=== PATIENT | female | born 1930 | race Caucasian/White ===

== ENCOUNTER → 2016-08-24 20:58 | Emergency (ER) | payer MEDICARE ==
[2016-08-24 21:44] LABS: Hematocrit 36 % (35-47); Hemoglobin 11.8 g/dl (12.0-16.0); Mean Corpuscular HGB Conc 33 g/dl (31-36); Mean Corpuscular Hemoglobin 33 pg (27-31); Mean Corpuscular Volume 99 fL (80-97); Mean Platelet Volume 8 um3 (7.4-10.4); Red Blood Count 3.62 10^6/ul (4.0-5.4); Red Cell Distribution Width 14 % (10.5-15); White Blood Count 8.7 10^3/ul (3.5-10.8)
--- NOTE | 2016-08-24 21:54 | RAD ---
Indication: Transient slurred speech and LEFT-sided facial droop. Symptoms resolved. Comparison: No relevant prior exams available on the [facility] [place] PACS for comparison. Technique: Noncontrast CT vertex of skull through foramen magnum. Report: Moderately severe prominence of the cerebral sulci and cerebellar fissures. Proportional ventricular enlargement. Patent basal cisterns. Small chronic lacunar infarct at the LEFT inferior cerebellar hemisphere. Negative for mansfield matter white matter obscuration, intra or extra-axial hemorrhage, or mass effect. Calcification at the bilateral basal ganglia. No suspicious intra or extra-axial lesions evident. Unremarkable partially visualized orbital contents. Atherosclerotic calcification at the intracranial internal carotid arteries. Negative for hyperdense MCA sign. No suspicious calvarial or skull base lesion evident. Clear visualized paranasal sinuses and mastoid air spaces. IMPRESSION: 1. Moderately severe involutional change. Small chronic lacunar infarct at the LEFT inferior cerebellar hemisphere. 2. No CT evidence for intracranial hemorrhage or CT stigmata of ischemic stroke.
--- NOTE | 2016-08-24 21:57 | RAD ---
Indication: Weakness. Transient LEFT side facial droop and slurring of words. Comparison: No relevant prior exams available on the [facility] PACS for comparison. Technique: Sitting AP and lateral chest views. Report: Mild prominence of the interstitial markings and upper lung zone rarefaction. No pulmonary infiltrate, focal pulmonary lesion, pleural effusion, pneumothorax. Upper normal heart size. Unremarkable central pulmonary vasculature. IMPRESSION: No acute cardiopulmonary process evident.
[2016-08-24 21:58] LABS: Albumin 4.4 g/dL (3.2-5.2); BUN/Creatinine Ratio 38.5 (8-20); Calcium 9.9 mg/dL (8.6-10.3); EGFR African American 44.6 (>60); EGFR Non-African American 34.7 (>60); Globulin 3.7 g/dL (2-4); Magnesium 2.1 mg/dL (1.9-2.7); Potassium 4.4 mmol/L (3.5-5.0); Total Bilirubin 0.3 mg/dL (0.2-1.0); Total Protein 8.1 g/dL (6.4-8.9)
[2016-08-24 22:09] VITALS: BP 138/37
[2016-08-24 22:57] LABS: Troponin I 0.05 ng/mL (<0.04)
--- NOTE | 2016-08-25 00:42 | ED ---
Johnny Posada Rebecca, scribed for Hammad Mortensen MD on 08/24/16 at 2122 . Neurological HPI - HPI Summary HPI Summary: Pt is an 85 y/o F who presents to ED s/p 2 episodes of slurred speech, unsteady gait and "speaking out of one side." Episodes occurred at 1745 and 1945 with the first lasting either 1 minute or 5 minutes (family was unsure) and the second lasting 2 minutes. All sx are resolved besides unsteady gait with family reports was improved by PO intake of chocolate. Speech impairments improved by spontaneous resolution. Denies fever. PMHx DM - blood glucose was taken by family at 1830 and it was 188. Is on blood thinners, per family. Dr. Greenfield is PCP. - History of Current Complaint Chief Complaint: EDWeakness Stated Complaint: WEAKNESS LT SIDE/SLURRING WORDS Time Seen by Provider: 08/24/16 21:16 Hx Obtained From: Patient, Family/Bolt Sorter Onset/Duration: Sudden Onset, Resolved Timing: Intermittent Episodes Lasting: - Minutes Current Severity: None Pain Intensity: 0 Pain Scale Used: 0-10 Numeric Frequency: Episodes x___ - 2 episodes, Episodes Lasting ____ (in Mins/Days/Weeks /Years) - 1 minute or 5 minutes (unsure); 2 minutes Aggravating: Nothing Alleviating: Glucose - Chocolate, Spontanious Resolution Associated Signs and Symptoms: Positive: Unsteady Gait - improved, Impaired Speech - Slurred speech and "speaking out of one side," resolved PMH/Surg Hx/FS Hx/Imm Hx Endocrine/Hematology History: Reports: Hx Diabetes Cardiovascular History: Reports: Hx Hypertension Respiratory History: Reports: Hx Asthma History: Reports: Hx Renal Disease - Stage III Infectious Disease History: Denies: Traveled Outside the [place] in Last 30 Days - Family History Known Family History: Positive: Cardiac Disease, Respiratory Disease - asthma, Other - CA - Social History Alcohol Use: None Substance Use Type: Reports: None Smoking Status (MU): Former Smoker Amount Used/How Often: QUIT 50 YEARS AGO Review of Systems Negative: Fever Neurological: Other - Slurred speech and "speaking out of one side" - resolved; Unsteady gait - improved All Other Systems Reviewed And Are Negative: Yes Physical Exam Triage Information Reviewed: Yes Vital Signs On Initial Exam: Initial Vitals Temp Pulse Resp BP Pulse Ox 97.2 F 94 18 164/51 99 08/24/16 21:00 08/24/16 21:00 08/24/16 21:00 08/24/16 21:00 08/24/16 21:00 Vital Signs Reviewed: Yes Appearance: Positive: Well-Appearing, No Pain Distress Skin: Positive: Warm Head/Face: Positive: Normal Head/Face Inspection Eyes: Positive: EOMI, DANYA ENT: Positive: Hearing grossly normal Neck: Positive: Supple Respiratory/Lung Sounds: Positive: Clear to Auscultation, Breath Sounds Present Cardiovascular: Positive: RRR Abdomen Description: Positive: Nontender, Soft Bowel Sounds: Positive: Present Musculoskeletal: Positive: Strength/ROM Intact Neurological: Positive: Sensory/Motor Intact, Alert, Oriented to Person Place, Time, Normal Gait Psychiatric: Positive: Affect/Mood Appropriate Diagnostics - Vital Signs Vital Signs Temp Pulse Resp BP Pulse Ox 08/24/16 21:00 97.2 F 94 18 164/51 99 - Laboratory Lab Results: Lab Results 08/24/16 08/24/16 08/24/16 Range/Units 21:25 21:25 21:25 WBC 8.7 (3.5-10.8) 10^3/ul RBC 3.62 L (4.0-5.4) 10^6/ul Hgb 11.8 L (12.0-16.0) g/dl Hct 36 (35-47) % MCV 99 H (80-97) fL MCH 33 H (27-31) pg MCHC 33 (31-36) g/dl RDW 14 (10.5-15) % Plt Count 249 (150-450) 10^3/ul MPV 8 (7.4-10.4) um3 Neut % (Auto) 58.8 (38-83) % Lymph % (Auto) 28.5 (25-47) % Stanly % (Auto) 6.8 (1-9) % Eos % (Auto) 5.3 (0-6) % Baso % (Auto) 0.6 (0-2) % Absolute Neuts (auto) 5.1 (1.5-7.7) 10^3/ul Absolute Lymphs (auto) 2.5 (1.0-4.8) 10^3/ul Absolute Monos (auto) 0.6 (0-0.8) 10^3/ul Absolute Eos (auto) 0.5 (0-0.6) 10^3/ul Absolute Basos (auto) 0.1 (0-0.2) 10^3/ul Absolute Nucleated RBC 0.01 10^3/ul Nucleated RBC % 0.1 Sodium 135 (133-145) mmol/L Potassium 4.4 (3.5-5.0) mmol/L Chloride 104 (101-111) mmol/L Carbon Dioxide 24 (22-32) mmol/L Anion Gap 7 (2-11) mmol/L BUN 55 H (6-24) mg/dL Creatinine 1.43 H (0.51-0.95) mg/dL Est GFR ( Amer) 44.6 (>60) Est GFR (Non-Af Amer) 34.7 (>60) BUN/Creatinine Ratio 38.5 H (8-20) Glucose 167 H (70-100) mg/dL Lactic Acid 1.2 (0.5-2.0) mmol/L Calcium 9.9 (8.6-10.3) mg/dL Magnesium 2.1 (1.9-2.7) mg/dL Total Bilirubin 0.30 (0.2-1.0) mg/dL AST 20 (13-39) U/L ALT 13 (7-52) U/L Alkaline Phosphatase 72 (34-104) U/L Troponin I 0.05 H* (<0.04) ng/mL Total Protein 8.1 (6.4-8.9) g/dL Albumin 4.4 (3.2-5.2) g/dL Globulin 3.7 (2-4) g/dL Albumin/Globulin Ratio 1.2 (1-3) Result Diagrams: 08/24/16 21:25 08/24/16 21:25 Lab Statement: Any lab studies that have been ordered have been reviewed, and results considered in the medical decision making process. - Radiology CXR Xray Interpretation: No Acute Changes - No acute cariopulmonary process evident. Radiology Interpretation Completed By: Radiologist - CT Brain CT CT Interpretation Completed By: Radiologist - 1. Moderately severe involutional change. Small chronic lacunar infarct at the LEFT inferior cerebellar hemisphere. 2. No CT evidence for intracranial hemorrhage or CT stigmata of ischemic stroke. - EKG 2127 Cardiac Rate: NL - 86 bpm EKG Rhythm: Sinus Rhythm EKG Interpretation: RBBB and LPFB, no STEMI NIH Scale - NIH Scale Level of Consciousness: Alert/Keenly Responsive Ask Patient the Month and His/Her Age: Both Correct Ask Pt to Open/Close Eyes and Cloth Measurer/Release Non-Paretic Hand: Both Correctly Best Gaze (Only Horizontal Eye Movement): Normal Visual Field Testing: No Visual Loss Facial Paresis-Pt to Smile & Close Eyes or Grimace Symmetry: Normal/Symmetrical Motor Function - Right Arm: No Drift-Holds 10 Seconds Motor Function - Left Arm: No Drift-Holds 10 Seconds Motor Function - Right Leg: No Drift-Holds 10 Seconds Motor Function - Left Leg: No Drift-Holds 10 Seconds Limb Ataxia-Must be out of Proportion to Weakness Present: Absent Sensory (Use Pinprick to Test Arms/Legs/Trunk/Face): Normal Best Language (Describe Picture, Name Items): No Aphasia Dysarthria (Read Several Words): Normal Extinction and Inattention: No Abnormality Total Score: 0 Re-Evaluation - Re-Evaluation First Eval Re-Evaluation Time: 22:24 Change: Improved Comment: Pt is doing well, discussed results and D/C plan with pt and family. Second Eval Comment: After d/c tropomnin 0.05 Called pt's daughter stated pt will f/u with dr greenfield, stated has elevated troponins due to renal disease Course/Dx - Course Assessment/Plan: Pt is an 85 y/o F who presents to ED s/p 2 episodes of slurred speech, unsteady gait and "speaking out of one side." Episodes occurred at 1745 and 1945 with the first lasting either 1 minute or 5 minutes (family was unsure ) and the second lasting 2 minutes. All sx are resolved besides unsteady gait with family reports was improved by PO intake of chocolate. Speech impairments improved by spontaneous resolution. Denies fever. PMHx DM - blood glucose was taken by family at 1830 and it was 188. Is on blood thinners, per family. Brain CT reveals "1. Moderately severe involutional change. Small chronic lacunar infarct at the LEFT. inferior cerebellar hemisphere. 2. No CT evidence for intracranial hemorrhage or CT stigmata of ischemic stroke." CXR reveals no acute findings. EKG reveals sinus rhythm with RBBB and LPFB w/ no STEMI. Pt will be D/C to home with Dx of TIA with a follow up with neurology. She and family agree and understand. - Diagnoses Provider Diagnoses: TIA (transient ischemic attack) Discharge - Discharge Plan Condition: Stable Disposition: HOME Patient Education Materials: Transient Ischemic Attack (ED) Referrals: Hammad Soria MD [Medical Doctor] - 3 Days The documentation as recorded by the Johnny sanchez Rebecca accurately reflects the service I personally performed and the decisions made by me, Hammad Mortensen MD.
== END | disposition home or self-care (01) ==
LOC: ED 20:58
DX: G45.9 Transient cerebral ischemic attack, unspecified (principal); Z86.79 Personal history of other diseases of the circulatory system; Z87.891 Personal history of nicotine dependence
CPT/HCPCS: 36415; 70450; 71020; 80053; 83605; 83735; 84484; 85025; 93005; 99282

== ENCOUNTER 2017-03-21 13:12 | Observation (INO) | payer BC, MEDICARE ==
--- OUTSIDE RECORDS SUMMARY | 2017-03-21 13:46 | XMS REPORT ---
:1930 External Reference #:[id number] [facility] [address] [address] Phone [phone] Care Team Providers Name Role Phone Tc Carrera MD Primary Care Physician Unavailable Payers Type Date Identification Numbers Payment Provider Subscriber Health Maintenance Policy Number: Medicare Blue Ppo Ivana Miriam [employer] [facility] [id number] Group Number: [id number] [address] [address] PayID: [id number] DANNA Mishra [id number] Advance Directives Type Date Description Status Comment Other Directive 04/28/2016 Living Will Current and Verified Problems Date Description Provider Status Onset: 03/04/2016 Type 2 diabetes mellitus Hai Wells M.D.,FACP Onset: 03/04/2016 Asthma Hai Wells M.D.,FACP Onset: 03/04/2016 Diabetic peripheral neuropathy Hai Wells M.D.,FACP Onset: 03/04/2016 Vitamin B12 deficiency (non anemic) Hai Wells M.D.,FACP Onset: 03/04/2016 Memory impairment Hai Wells M.D.,FACP Onset: 03/30/2016 Uric acid urolithiasis Hai Wells M.D.,FACP Onset: 08/26/2016 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 on Rosanna.JASMYN [employer] electrocardiogram Onset: 09/07/2016 Carotid artery stenosis Hai Wells M.D., FACP Note: LT 50-69% Onset: 09/09/2016 Transient cerebral ischemia Yudith Cruz MD Active Onset: 09/09/2016 Unspecified dementia 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 Cruz MD Active behavioral disturbance Onset: 02/15/2017 Chronic kidney disease stage 3 Hai Wells M.D., FACP Onset: 02/24/2017 Abnormal gait Yudith Cruz MD Active Onset: 03/04/2016 Chronic kidney disease Wilver Wells M.D., FACP Inactive: 03/04/2016 Onset: 03/04/2016 Chronic kidney disease stage Tc Carrera M.D.,JASMYN Inactive 3 Inactive: 03/30/2016 Onset: 03/04/2016 Primary gout Tc Carrera M.D., FACP Inactive Inactive: 03/30/2016 Onset: 03/30/2016 Chronic kidney disease stage Tc Carrera M.D.,АНДРЕЙP Inactive 2 Inactive: 02/15/2017 Family History Date Family Member(s) Problem(s) Comments General Cancer General Seizure Disorder General Hypertension General Heart Disease Father due to Combat () - WW2 Fatality Mother due to Combat () - WW2 Fatality Children 3 : (age 66 First Son due to Lung Cancer Years) First Daughter Asthma First Daughter mild anoxic brain injury Siblings 11 First Brother due to Combat () Fatality : (age 40 First Sister due to Asthma Years) : (age 33 Second Sister due to Cancer bone Years) Social History Type Date Description Comments Marital Status Lives With Daughter Occupation Retired Cigarette Use Former Cigarette Smoker ETOH Use 03/30/2016 Never used alcohol Smoking Patient is a former smoker 1/2 ppd X 13 years. Quit in 1950's Recreational Drug Use Denies Drug Use Daily Caffeine Decaf Tea 5-6 cups/day General Hx Text Allergies, Adverse Reactions, Alerts Date Description Reaction Status Severity Comments 03/04/2016 NKDA active Medications Medication Date Status Form Strength Qnty SIG Indications Ordering Provider Blood Glucose 11/30 Active Kit W/Device 1unit check blood Monitoring s sugar 4 times Milvia Carrera System daily and prn M.Milvia,FACJennifer Blood Glucose 11/30 Active Strips 150un check blood Test its sugar 4 times Milvia Carrera, daily and prn M.DYenni,FACJennifer Lancets 11/30 Active Misc 28G 150un check blood its sugar 4 times Milvia Carrera, daily and prn M.DYenni,FACJennifer Valsartan 09/12 Active Tablets 40mg 30tab 1/2 by mouth s every day Milvia Carrera M.D.,JASMYN Aspirin Ec 08/26 Active Tablets 81mg 90tab 1-[address] brenton Carrera M.D.,АНДРЕЙP Atorvastatin 03/30 Active Tablets 40mg 90tab take 1/2 s tablet at Milvia Carrera, bedtime (fill Jaclyn,FACJennifer when patient requests) BD Insulin 03/11 Active Misc 31G X 400un use 4 syringes Syringe /07/12" 1 its daily and as Milvia Carrera, Ultrafine/U-100 ML needed Jaclyn,JASMYN /1ML/31G X 07/12" Allopurinol Active Tablets 100mg 90tab 1 by mouth s every day Milvia Carrera M.D.,JASMYN Levemir Active Solution 100Unit/M 30ml 20-24 units at Buddy /0000 L bedtime Welsh, [employer] Furosemide Active Tablets 20mg 90tab 1 by mouth / s every morning Milvia Carrera M.D.,АНДРЕЙP Centrum Silver Active Tablets 1 by mouth Unknown /0000 every day Fiber 00 Active Capsules 3 at noon and Unknown /0000 3 in evening Humalog Active Solution 100Unit/M 30ml 6-8 units per Buddy /0000 L sliding scale Welsh, three times a [employer] day with each meal and as needed Valacyclovir 08/10 Hx Tablets 1gm 21tab by mouth every s 8 hours for 1 D. Debi, - week Jaclyn,FACP 08/17 Atorvastatin 03/11 Hx Tablets 80mg 90tab 1 by mouth Buddy s every day Welsh, - [employer] 03/30 Cyanocobalamin 03/04 Hx Solution 1000mcg/M 6ml 1 milliliters L intramuscular Milvia Carrera, - [id number] Jaclyn,FACP 03/30 Valsartan Hx Tablets 80mg 90tab 1 by mouth in s at night Milvia Carrera - Jaclyn,[facility] 09/12 Immunizations CPT Code Status Date Vaccine Reaction Lot # [id number] Given 02/15/2017 Pneumococcal Conjugate Vaccine 13 [id number] Valent For Intramuscular Use 22874 Given 11/09/2016 Influenza Virus Vaccine, Quadrivalent, no reaction 572kt Split, Preservative Free Vital Signs Date Vital Result Comment 02/24/2017 Weight 148.50 lb Heart Rate 72 /min BP Systolic 130 mmHg BP Diastolic 62 mmHg 02/15/2017 Weight 149.00 lb Heart Rate 74 /min BP Systolic Sitting 136 mmHg BP Diastolic Sitting 84 mmHg Body Temperature 96.1 F O2 % BldC Oximetry 99 % 11/09/2016 Weight 145.50 lb Heart Rate 60 /min BP Systolic Sitting 120 mmHg BP Diastolic Sitting 56 mmHg Body Temperature 97.4 F O2 % BldC Oximetry 96 % 09/12/2016 Height 60.4 inches 5'0.40" Weight 145.00 lb Heart Rate 72 /min BP Systolic Sitting 112 mmHg BP Diastolic Sitting 62 mmHg Body Temperature 98.1 F O2 % BldC Oximetry 95 % BMI (Body Mass Index) 27.9 kg/m2 09/09/2016 Height 60.4 inches 5'0.40" Weight 144.00 lb Heart Rate 72 /min BP Systolic Sitting 100 mmHg 120/42 rt arm BP Diastolic Sitting 40 mmHg 120/42 rt arm Respiratory Rate 16 /min BMI (Body Mass Index) 27.7 kg/m2 08/26/2016 Weight 145.00 lb Heart Rate 90 /min BP Systolic Sitting 136 mmHg BP Diastolic Sitting 50 mmHg Body Temperature 98.0 F O2 % BldC Oximetry 98 % 08/10/2016 Height 60.4 inches 5'0.40" Weight 144.00 lb Heart Rate 75 /min BP Systolic 138 mmHg BP Diastolic 50 mmHg Body Temperature 98.2 F O2 % BldC Oximetry 99 % BMI (Body Mass Index) 27.7 kg/m2 03/30/2016 Weight 142.50 lb Heart Rate 66 /min BP Systolic Sitting 144 mmHg BP Diastolic Sitting 60 mmHg Body Temperature 97.2 F O2 % BldC Oximetry 94 % 03/04/2016 Height 60 inches 5'0" Weight 132.25 lb Heart Rate 96 /min BP Systolic Sitting 138 mmHg BP Diastolic Sitting 58 mmHg Body Temperature 98.1 F O2 % BldC Oximetry 87 % BMI (Body Mass Index) 25.8 kg/m2 Results Test Date Test Result H/L Range Note Laboratory test finding 02/15/2017 Hemoglobin A1c 7.5 High 5-7 Laboratory test finding 11/09/2016 Hemoglobin A1c 7.8 High 5-7 Laboratory test finding 08/31/2016 Troponin-I (TnI) 0.05 ng/mL High < 0.04 CKMB 08/31/2016 CKMB ng/mL 3.0 ng/mL 0.6-6.3 CBC Auto Diff 08/24/2016 White Blood Count 8.7 10^3/uL 3.5-10.8 Red Blood Count 3.62 10^6/uL Low 4.0-5.4 Hemoglobin 11.8 g/dL Low 12.0-16.0 Hematocrit 36 % 35-47 Mean Corpuscular Volume 99 fL High 80-97 Mean Corpuscular Hemoglobin 33 pg High 27-31 Mean Corpuscular HGB Conc 33 g/dL 31-36 Red Cell Distribution Width 14 % 10.5-15 Platelet Count 249 10^3/uL 150-450 Mean Platelet Volume 8 um3 7.4-10.4 Abs Neutrophils 5.1 10^3/uL 1.5-7.7 Abs Lymphocytes 2.5 10^3/uL 1.0-4.8 Abs Monocytes 0.6 10^3/uL 0-0.8 Abs Eosinophils 0.5 10^3/uL 0-0.6 Abs Basophils 0.1 10^3/uL 0-0.2 Abs Nucleated RBC 0.01 10^3/uL Granulocyte % 58.8 % 38-83 Lymphocyte % 28.5 % 25-47 Monocyte % 6.8 % 1-9 Eosinophil % 5.3 % 0-6 Basophil % 0.6 % 0-2 Nucleated Red Blood Cells % 0.1 Laboratory test finding 08/24/2016 Lactic Acid 1.2 mmol/L 0.5-2.0 1 Comp Metabolic Panel 08/24/2016 Sodium 135 mmol/L 133-145 Potassium 4.4 mmol/L 3.5-5.0 Chloride 104 mmol/L 101-111 Co2 Carbon Dioxide 24 mmol/L 22-32 Anion Gap 7 mmol/L 2-11 Glucose 167 mg/dL High 70-100 Blood Urea Nitrogen 55 mg/dL High 6-24 Creatinine 1.43 mg/dL High 0.51-0.95 BUN/Creatinine Ratio 38.5 High 8-20 Calcium 9.9 mg/dL 8.6-10.3 Total Protein 8.1 g/dL 6.4-8.9 Albumin 4.4 g/dL 3.2-5.2 Globulin 3.7 g/dL 2-4 Albumin/Globulin Ratio 1.2 1-3 Total Bilirubin 0.30 mg/dL 0.2-1.0 Alkaline Phosphatase 72 U/L 34-104 Alt 13 U/L 7-52 Ast 20 U/L 13-39 Egfr Non- 34.7 >60 Egfr 44.6 >60 2 Laboratory test finding 08/24/2016 Magnesium 2.1 mg/dL 1.9-2.7 Troponin-I (TnI) 0.05 ng/mL High <0.04 3 CBC Auto Diff 08/23/2016 White Blood Count 6.9 10^3/uL 3.5-10.8 Red Blood Count 3.52 10^6/uL Low 4.0-5.4 Hemoglobin 11.1 g/dL Low 12.0-16.0 Hematocrit 33 % Low 35-47 Mean Corpuscular Volume 94 fL 80-97 Mean Corpuscular Hemoglobin 31 pg 27-31 Mean Corpuscular HGB Conc 34 g/dL 31-36 Red Cell Distribution Width 13 % 10.5-15 Platelet Count 251 10^3/uL 150-450 Mean Platelet Volume 8 um3 7.4-10.4 Abs Neutrophils 4.3 10^3/uL 1.5-7.7 Abs Lymphocytes 1.8 10^3/uL 1.0-4.8 Abs Monocytes 0.5 10^3/uL 0-0.8 Abs Eosinophils 0.3 10^3/uL 0-0.6 Abs Basophils 0 10^3/uL 0-0.2 Abs Nucleated RBC 0 10^3/uL Granulocyte % 62.2 % 38-83 Lymphocyte % 26.7 % 25-47 Monocyte % 6.6 % 1-9 Eosinophil % 3.9 % 0-6 Basophil % 0.6 % 0-2 Nucleated Red Blood Cells % 0.1 Basic Metabolic Panel 08/23/2016 Sodium 133 mmol/L 133-145 Potassium 5.8 mmol/L High 3.5-5.0 Chloride 101 mmol/L 101-111 Co2 Carbon Dioxide 26 mmol/L 22-32 Anion Gap 6 mmol/L 2-11 Glucose 166 mg/dL High 70-100 Blood Urea Nitrogen 49 mg/dL High 6-24 Creatinine 1.38 mg/dL High 0.51-0.95 BUN/Creatinine Ratio 35.5 High 8-20 Calcium 9.9 mg/dL 8.6-10.3 Egfr Non- 36.1 >60 Egfr 46.4 >60 4 Ua Routine 08/10/2016 Ua Specific Pana 1.020 Ua PH 5 Ua Color pale yellow Ua Appera clear Ua WBC ++ Ua Protein neg Ua Glucose norm Ua Ketones neg Ua Bilirubin neg Ua Urobilinogen norm Ua Nitrite neg Ua Occult Blood about 250 Comp Metabolic Panel 08/08/2016 Sodium 138 mmol/L 133-145 Potassium 5.0 mmol/L 3.5-5.0 Chloride 106 mmol/L 101-111 Co2 Carbon Dioxide 26 mmol/L 22-32 Anion Gap 6 mmol/L 2-11 Glucose 136 mg/dL High 70-100 Blood Urea Nitrogen 55 mg/dL High 6-24 Creatinine 1.28 mg/dL High 0.51-0.95 BUN/Creatinine Ratio 43.0 High 8-20 Calcium 9.6 mg/dL 8.6-10.3 Total Protein 7.0 g/dL 6.4-8.9 Albumin 3.8 g/dL 3.2-5.2 Globulin 3.2 g/dL 2-4 Albumin/Globulin Ratio 1.2 1-3 Total Bilirubin 0.50 mg/dL 0.2-1.0 Alkaline Phosphatase 62 U/L 34-104 Alt 10 U/L 7-52 Ast 14 U/L 13-39 Egfr Non- 39.4 >60 Egfr 50.7 >60 5 Lipid Profile (Trig/Chol/HDL) 08/08/2016 Triglycerides 79 mg/dL 6 Cholesterol 153 mg/dL 7 HDL Cholesterol 39.9 mg/dL 8 LDL Cholesterol 97 mg/dL 9 Laboratory test finding 08/08/2016 Hemoglobin A1c (Glyco 7.2 % High Less than 6.0 10 HGB) Vitamin B12 1150 pg/mL High 180-914 11 CBC Auto Diff 03/09/2016 White Blood Count 6.7 10^3/uL 3.5-10.8 Red Blood Count 3.73 10^6/uL Low 4.0-5.4 Hemoglobin 11.5 g/dL Low 12.0-16.0 Hematocrit 35 % 35-47 Mean Corpuscular Volume 93 fL 80-97 Mean Corpuscular Hemoglobin 31 pg 27-31 Mean Corpuscular HGB Conc 33 g/dL 31-36 Red Cell Distribution Width 14 % 10.5-15 Platelet Count 220 10^3/uL 150-450 Mean Platelet Volume 9 um3 7.4-10.4 Abs Neutrophils 4.2 10^3/uL 1.5-7.7 Abs Lymphocytes 1.8 10^3/uL 1.0-4.8 Abs Monocytes 0.4 10^3/uL 0-0.8 Abs Eosinophils 0.3 10^3/uL 0-0.6 Abs Basophils 0 10^3/uL 0-0.2 Abs Nucleated RBC 0 10^3/uL Granulocyte % 62.9 % 38-83 Lymphocyte % 26.4 % 25-47 Monocyte % 6.2 % 1-9 Eosinophil % 4.0 % 0-6 Basophil % 0.5 % 0-2 Nucleated Red Blood Cells % 0 Laboratory test finding 03/09/2016 Vitamin B12 1037 pg/mL High 180-914 12 TSH (Thyroid Stim Horm) 2.41 mcIU/mL 0.34-5.60 13 Uric Acid 5.3 mg/dL 2.3-6.6 14 Urine Microalbumin Random 03/09/2016 Urine Creatinine 57.99 mg/dL Ur Microalbumin (mg/L) 150.3 mg/L Urine Microalbumin/Creatinine 259.1 ug/mg High <31 Laboratory test 03/09/2016 Hemoglobin A1c 7.3 % High Less than 6.0 15 finding (Glyco HGB) Comp Metabolic Panel 03/09/2016 Sodium 136 mmol/L 133-145 Potassium 4.6 mmol/L 3.5-5.0 Chloride 104 mmol/L 101-111 Co2 Carbon Dioxide 27 mmol/L 22-32 Anion Gap 5 mmol/L 2-11 Glucose 116 mg/dL High 70-100 Blood Urea Nitrogen 27 mg/dL High 6-24 Creatinine 1.01 mg/dL High 0.51-0.95 BUN/Creatinine Ratio 26.7 High 8-20 Calcium 9.4 mg/dL 8.6-10.3 Total Protein 6.7 g/dL 6.4-8.9 Albumin 3.5 g/dL 3.2-5.2 Globulin 3.2 g/dL 2-4 Albumin/Globulin Ratio 1.1 1-3 Total Bilirubin 0.50 mg/dL 0.2-1.0 Alkaline Phosphatase 62 U/L 34-104 Alt 24 U/L 7-52 Ast 25 U/L 13-39 Egfr Non- 51.8 >60 Egfr 66.7 >60 16 Lipid Profile (Trig/Chol/HDL) 03/09/2016 Triglycerides 79 mg/dL 17 Cholesterol 131 mg/dL 18 HDL Cholesterol 44.4 mg/dL 19 LDL Cholesterol 71 mg/dL [address] [facility] Severe Sepsis and Septic Shock Management Bundle Measure requires all lactic acids initially measuring >2.0 mmol/L be repeated. 2 Because ethnic data is not always readily available, this report includes an eGFR for both -Americans and non- Americans. The National Kidney Disease Education Program (NKDEP) does not endorse the use of the MDRD equation for patients that are not between the ages of 18 and 70, are , have extremes of body size, muscle mass, or nutritional status, or are non- or non-. According to the National Kidney Foundation, irrespective of diagnosis, the stage of the disease is based on the level of kidney function: Stage Description GFR(mL/min/1.73 m(2)) 1 Kidney damage with normal or decreased GFR 90 2 Kidney damage with mild decrease in GFR 60-89 3 Moderate decrease in GFR 30-59 4 Severe decrease in GFR 15-29 5 Kidney failure <15 (or dialysis) 3 Result TnIDx:0.05 Called to [id number] at: 22:57:43 by:[id number] Read back by: [id number] 4 Because ethnic data is not always readily available, this report includes an eGFR for both -Americans and non- Americans. The National Kidney Disease Education Program (NKDEP) does not endorse the use of the MDRD equation for patients that are not between the ages of 18 and 70, are , have extremes of body size, muscle mass, or nutritional status, or are non- or non-. According to the National Kidney Foundation, irrespective of diagnosis, the stage of the disease is based on the level of kidney function: Stage Description GFR(mL/min/1.73 m(2)) 1 Kidney damage with normal or decreased GFR 90 2 Kidney damage with mild decrease in GFR 60-89 3 Moderate decrease in GFR 30-59 4 Severe decrease in GFR 15-29 5 Kidney failure <15 (or dialysis) 5 Because ethnic data is not always readily available, this report includes an eGFR for both -Americans and non- Americans. The National Kidney Disease Education Program (NKDEP) does not endorse the use of the MDRD equation for patients that are not between the ages of 18 and 70, are , have extremes of body size, muscle mass, or nutritional status, or are non- or non-. According to the National Kidney Foundation, irrespective of diagnosis, the stage of the disease is based on the level of kidney function: Stage Description GFR(mL/min/1.73 m(2)) 1 Kidney damage with normal or decreased GFR 90 2 Kidney damage with mild decrease in GFR 60-89 3 Moderate decrease in GFR 30-59 4 Severe decrease in GFR 15-29 5 Kidney failure <15 (or dialysis) 6 Desirable <150 Borderline high 150-199 High 200-499 Very High >500 7 Desirable <200 Borderline high 200-239 High >239 8 Low <40 Desirable: 40-60 High: >60 9 Desirable: <100 mg/dL Near Optimal: 100-129 mg/dL Borderline High: 130-159 mg/dL High: 160-189 mg/dL Very High: >189 mg/dL 10 Therapeutic target for the treatment of diabetes Mellitus patients is <7% HBA1C, and in selective patients <6.0%.Please refer to [place] [employer] Diabetic care guidelines for further information. 11 Normal Range 180 to 914 Indeterminate Range 145 to 180 Deficient Range <145 12 Normal Range 180 to 914 Indeterminate Range 145 to 180 Deficient Range <145 13 FASTING 10 HOUR 14 FASTING 10 HOUR 15 Therapeutic target for the treatment of diabetes Mellitus patients is <7% HBA1C, and in selective patients <6.0%.Please refer to [place] [employer] Diabetic care guidelines for further information. 16 Because ethnic data is not always readily available, this report includes an eGFR for both -Americans and non- Americans. The National Kidney Disease Education Program (NKDEP) does not endorse the use of the MDRD equation for patients that are not between the ages of 18 and 70, are , have extremes of body size, muscle mass, or nutritional status, or are non- or non-. According to the National Kidney Foundation, irrespective of diagnosis, the stage of the disease is based on the level of kidney function: Stage Description GFR(mL/min/1.73 m(2)) 1 Kidney damage with normal or decreased GFR 90 2 Kidney damage with mild decrease in GFR 60-89 3 Moderate decrease in GFR 30-59 4 Severe decrease in GFR 15-29 5 Kidney failure <15 (or dialysis) 17 Desirable <150 Borderline high 150-199 High 200-499 Very High >500 18 Desirable <200 Borderline high 200-239 High >239 19 Low <40 Desirable: 40-60 High: >60 20 Desirable: <100 mg/dL Near Optimal: 100-129 mg/dL Borderline High: 130-159 mg/dL High: 160-189 mg/dL Very High: >189 mg/dL Procedures Date CPT Code Description Status 09/07/2016 15489 ECHO Transthorasic Realtime 2D W Doppler & Color Completed Flow Hosp 08/31/2016 68640 EEG Recording Awake & Asleep Completed 03/11/2016 Diabetic Retinal Eye Exam Completed 03/09/2016 Diabetic Foot Exam Completed Encounters Type Date Location Provider CPT E/M Dx Office Visit 11/09/2016 11:50a [facility] Internal Tc Carrera, 28365 E11.22 Medicine - [place] Brayan Anaya,FACP M62.81 Z23 Office Visit 09/12/2016 9:10a [facility] Medicine Tc Carrera, 38781 G45.9 - [place] Brayan Anaya,FACP I10 Office Visit 09/09/2016 11:00a [facility] [place] [address] G45.9 Of [facility] F03.90 R47.1 R29.810 Office Visit 09/01/2016 4:00p [facility] [place] [address] B02.29 Office Visit 08/26/2016 2:40p [facility] Internal Medicine Tc Carrera, 68761 G45.9 - [place] Brayan Anaya,FACP I20.8 G40.89 L30.9 Office Visit 08/10/2016 1:00p [facility] Internal Tc Carrera, 51419 Z00.01 Medicine - [place] Brayan Anaya,FACP E11.22 N18.3 R60.1 R31.0 B02.9 N95.0 Office Visit 03/30/2016 2:00p [facility] Internal Tc Carrera, 89499 E11.22 Medicine - [place] Brayan Anaya,FACP D51.9 Office Visit 03/04/2016 3:00p [facility] Internal Tc Carrera, 65881 E11.22 Medicine - [place] Brayan Anaya,FACP M25.511 D51.9 Plan of Care Future Appointment(s):08/22/2017 2:30 pm - Yudith Cruz MD at [id number]/17/2017 2:20 pm - Tc Carrera M.D.,FACP at [facility] Medicine - [address] [address]/24/2017 - Yudith Cruz MDF03.90 Unspecified dementia without behavioral disturbanceFollow up:6 MONTHSRecommendations:I think her level of dementia at this point is likely in the moderate range. Keep her as active as possible, both physically and socially, helps If there are any more of the episodes of slurred speech, facial drooping, especially if there is any facial twitching or arm twitching then we may want to get another EEG and evaluate whether a seizure medication would be nsofsaxrnbyH82.9 Transient cerebral ischemic attack, mjvdgvgangtM11.89 Other abnormalities of gait and mobilityFollow up::Recommendations:Agree with going back to PT
--- OUTSIDE RECORDS SUMMARY | 2017-03-21 13:46 | XMS REPORT ---
:1930 External Reference #:[id number] Author Organization [facility] Address [address] [address] Phone [phone] Care Team Providers Name Role Phone Tc Carrera MD Primary Care Physician Unavailable Payers Type Date Identification Numbers Payment Provider Subscriber Health Maintenance Policy Number: Medicare Blue Ppo Ivana Miriam [facility] [place] [place] [id number] Group Number: [id number] [address] [address] PayID: [id number] DANNA Mishra [id number] Advance Directives Type Date Description Status Comment [...] Form Strength Qnty SIG Indications Ordering Provider Ventolin HFA 03/17 Active Aerosol 108(90Bas 1unit 2 puffs by e) s mouth four D. Debi, mcg/Act times a day as Jaclyn,FACP needed Azithromycin 03/17 Hx Tablets 250mg 6tabs 2 every day for 1 day, Milvia Carrera, - then 1 every M.D.,FACP Benzonatate 03/17 Hx Capsules 100mg 30cap one by mouth s three times Milvia Carrera, - daily as MJeramie,JASMYN 04/01 needed cough Blood Glucose 11/30 Active Kit W/Device 1unit check blood Monitoring s sugar 4 times Milvia Carrera, System daily and prn M.D.,FACP Blood Glucose 11/30 Active Strips 150un check blood Test its sugar 4 times Milvia Carrera, daily and prn M.D.,FACP Lancets 11/30 Active Misc 28G 150un check blood its sugar 4 times Milvia Carrera, daily and prn M.D.,FACP Valsartan 09/12 Active Tablets 40mg 45tab 0.5 tab by s mouth every Milvia Carrera, day Jaclyn,FACJennifer Aspirin Ec 08/26 Active Tablets 81mg 90tab 1-[address] brenton Carrera M.D.,JASMYN Atorvastatin 03/30 Active Tablets 40mg 90tab take 02/28 s tablet at Milvia Carrera, bedtime (fill Jaclyn,FACP when patient requests) BD Insulin 03/11 Active Misc 31G X 400un use 4 syringes Syringe 07/12" 1 its daily and as Milvia Carrera, Ultrafine/U-100 ML needed MJeramie,FACJennifer /1ML/31G X 07/12" Allopurinol Active Tablets 100mg 90tab 1 by mouth s every day Milvia Carrera M.D.,JASMYN Levemir Active Solution 100Unit/M 30ml 20-24 units at Buddy /0000 L bedtime Eritrean, FINANCIAL DATA ANALYST Furosemide 00 Active Tablets 20mg 90tab 1 by mouth Tc / s every morning Milvia Carrera M.D.,[facility] Centrum Silver 00 Active Tablets 1 by mouth Unknown /0000 every day Fiber 00/00 Active Capsules 3 at noon and Unknown /0000 3 in evening Humalog 00 Active Solution 100Unit/M 30ml 6-8 units per Buddy /0000 L sliding scale E[place]an, three times a FINANCIAL DATA ANALYST day with each meal and as needed Valacyclovir 08/10 Hx Tablets 1gm 21tab by mouth every s 8 hours for 1 D. Debi, - week Jaclyn,[facility] 08/17 Atorvastatin 03/11 Hx Tablets 80mg 90tab 1 by mouth s every day [place]an, - FINANCIAL DATA ANALYST 03/30 Cyanocobalamin 03/04 Hx Solution 1000mcg/M 6ml 1 milliliters L intramuscular Milvia Carrera - [id number] Jaclyn,[facility] 03/30 Valsartan Hx Tablets 80mg 90tab 1 by mouth in s at night Radha Denise M.D.,[facility] 09/12 Immunizations CPT Code Status Date Vaccine Reaction Lot # 60076 Given 02/15/2017 Pneumococcal Conjugate Vaccine 13 [id number] Valent For Intramuscular Use 61030 Given 11/09/2016 Influenza Virus Vaccine, Quadrivalent, no reaction [id number] Split, Preservative Free Vital Signs Date Vital Result Comment 03/17/2017 Weight 148.00 lb Heart Rate 83 /min BP Systolic Sitting 142 mmHg BP Diastolic Sitting 58 mmHg Body Temperature 98.6 F O2 % BldC Oximetry 92 % 02/24/2017 Weight 148.50 lb Heart Rate 72 [...] finding 02/15/2017 Hemoglobin A1c 7.5 High 5-7 Basic Metabolic Panel 01/11/2017 Sodium 133 mmol/L 133-145 Potassium 5.8 mmol/L High 3.5-5.0 Chloride 101 mmol/L 101-111 Co2 Carbon Dioxide 26 mmol/L 22-32 Anion Gap 6 mmol/L 2-11 Glucose 166 mg/dL High 70-100 Blood Urea Nitrogen 49 mg/dL High 6-24 Creatinine 1.38 mg/dL High 0.51-0.95 BUN/Creatinine Ratio 35.5 High 8-20 Calcium 9.9 mg/dL 8.6-10.3 Egfr Non- 36.1 >60 Egfr 46.4 >60 1 CBC Auto Diff 01/11/2017 White Blood Count 6.9 10^3/uL 3.5-10.8 Red [...] Blood Cells % 0.1 Laboratory test finding 11/09/2016 Hemoglobin A1c 7.8 [...] finding 08/24/2016 Lactic Acid 1.2 mmol/L 0.5-2.0 2 Comp Metabolic Panel 08/24/2016 Sodium 135 mmol/L [...] Egfr Non- 34.7 >60 Egfr 44.6 >60 3 Laboratory test finding 08/24/2016 Magnesium 2.1 mg/dL 1.9-2.7 Troponin-I (TnI) 0.05 ng/mL High <0.04 4 Basic Metabolic Panel 08/23/2016 Sodium 134 mmol/L 133-145 Potassium 5.5 mmol/L High 3.5-5.0 Chloride 103 mmol/L 101-111 Co2 Carbon Dioxide 26 mmol/L 22-32 Anion Gap 5 mmol/L 2-11 Glucose 130 mg/dL High 70-100 Blood Urea Nitrogen 52 mg/dL High 6-24 Creatinine 1.37 mg/dL High 0.51-0.95 BUN/Creatinine Ratio 38.0 High 8-20 Calcium 9.7 mg/dL 8.6-10.3 Egfr Non- 36.5 >60 Egfr 46.9 >60 5 CBC Auto Diff 08/23/2016 White Blood Count 7.6 10^3/uL 3.5-10.8 Red Blood Count 3.49 10^6/uL Low 4.0-5.4 Hemoglobin 11.6 g/dL Low 12.0-16.0 Hematocrit 34 % Low 35-47 Mean Corpuscular Volume 96 fL 80-97 Mean Corpuscular Hemoglobin 33 pg High 27-31 Mean Corpuscular HGB Conc 34 g/dL 31-36 Red Cell Distribution Width 14 % 10.5-15 Platelet Count 231 10^3/uL 150-450 Mean Platelet Volume 8 um3 7.4-10.4 Abs Neutrophils 4.6 10^3/uL 1.5-7.7 Abs Lymphocytes 2.1 10^3/uL 1.0-4.8 Abs Monocytes 0.5 10^3/uL 0-0.8 Abs Eosinophils 0.4 10^3/uL 0-0.6 Abs Basophils 0 10^3/uL 0-0.2 Abs Nucleated RBC 0 10^3/uL Granulocyte % 60.4 % 38-83 Lymphocyte % 27.2 % 25-47 Monocyte % 6.6 % 1-9 Eosinophil % 5.3 % 0-6 Basophil % 0.5 % 0-2 Nucleated Red Blood Cells % 0 Ua Routine 08/10/2016 Ua Specific [place] 1.020 Ua PH 5 Ua Color pale [...] Egfr Non- 39.4 >60 Egfr 50.7 >60 6 Lipid Profile (Trig/Chol/HDL) 08/08/2016 Triglycerides 79 mg/dL 7 Cholesterol 153 mg/dL 8 HDL Cholesterol 39.9 mg/dL 9 LDL Cholesterol 97 mg/dL 10 Laboratory test finding 08/08/2016 Hemoglobin A1c (Glyco 7.2 % High Less than 6.0 11 HGB) Vitamin B12 1150 pg/mL High 180-914 12 CBC Auto Diff 03/09/2016 White Blood Count [...] 03/09/2016 Vitamin B12 1037 pg/mL High 180-914 13 TSH (Thyroid Stim Horm) 2.41 mcIU/mL 0.34-5.60 14 Uric Acid 5.3 mg/dL 2.3-6.6 15 Urine Microalbumin Random 03/09/2016 Urine Creatinine 57.99 mg/dL Ur Microalbumin (mg/L) 150.3 mg/L Urine Microalbumin/Creatinine 259.1 ug/mg High <31 Laboratory test 03/09/2016 Hemoglobin A1c 7.3 % High Less than 6.0 16 finding (Glyco HGB) Comp Metabolic Panel 03/09/2016 [...] Egfr Non- 51.8 >60 Egfr 66.7 >60 17 Lipid Profile (Trig/Chol/HDL) 03/09/2016 Triglycerides 79 mg/dL 18 Cholesterol 131 mg/dL 19 HDL Cholesterol 44.4 mg/dL 20 LDL Cholesterol 71 mg/dL 21 1 Because ethnic data is not always readily [...] 15-29 5 Kidney failure <15 (or dialysis) 2 [facility] Severe Sepsis and Septic Shock Management Bundle Measure requires all lactic acids initially measuring >2.0 mmol/L be repeated. 3 Because ethnic data is not always readily [...] 15-29 5 Kidney failure <15 (or dialysis) 4 Result TnIDx:0.05 Called to [id number] at: 22:57:43 by:[id number] Read back by: [id number] 5 Because ethnic data is not always [...] 5 Kidney failure <15 (or dialysis) 6 Because ethnic data is not always readily [...] 15-29 5 Kidney failure <15 (or dialysis) 7 Desirable <150 Borderline high 150-199 High 200-499 Very High >500 8 Desirable <200 Borderline high 200-239 High >239 9 Low <40 Desirable: 40-60 High: >60 10 Desirable: <100 mg/dL Near Optimal: 100-129 mg/dL Borderline High: 130-159 mg/dL High: 160-189 mg/dL Very High: >189 mg/dL 11 Therapeutic target for the treatment of diabetes Mellitus patients is <7% HBA1C, and in selective patients <6.0%.Please refer to [place] [employer] Diabetic care guidelines for further information. 12 Normal Range 180 to 914 Indeterminate Range 145 to 180 Deficient Range <145 13 Normal Range 180 to 914 Indeterminate Range 145 to 180 Deficient Range <145 14 FASTING 10 HOUR 15 FASTING 10 HOUR 16 Therapeutic target for the treatment of diabetes Mellitus patients is <7% HBA1C, and in selective patients <6.0%.Please refer to [place] [employer] Diabetic care guidelines for further information. 17 Because ethnic data is not always readily [...] 15-29 5 Kidney failure <15 (or dialysis) 18 Desirable <150 Borderline high 150-199 High 200-499 Very High >500 19 Desirable <200 Borderline high 200-239 High >239 20 Low <40 Desirable: 40-60 High: >60 21 Desirable: <100 mg/dL Near Optimal: 100-129 mg/dL Borderline High: 130-159 mg/dL High: 160-189 mg/dL Very High: >189 mg/dL Procedures Date CPT Code Description Status 09/07/2016 90342 ECHO Transthorasic Realtime 2D W Doppler & Color Completed Flow Hosp 08/31/2016 84564 EEG Recording Awake & Asleep Completed 03/11/2016 Diabetic Retinal Eye Exam Completed 03/09/2016 Diabetic Foot Exam Completed Encounters Type Date Location Provider CPT E/M Dx Office Visit 03/17/2017 [facility] Internal Medicine Radha Steel 16804 J45.31 3:40p [place] Brayan Carrera M.D.,FACP Office Visit 02/24/2017 [facility] [address] F03.90 10:00a R26.89 R47.1 R29.810 Office Visit 02/15/2017 1:40p [facility] Internal Tc Carrera, 19669 E11.22 Medicine - Eliane Schmidt M.D.,FACP N18.3 R60.1 Z23 Office Visit 11/09/2016 11:50a [facility] Internal Tc Carrera, 69093 E11.22 Medicine - Eliane Schmidt M.D.,FACP M62.81 Z23 Office Visit 09/12/2016 9:10a [facility] Internal Medicine Tc Carrera, 88865 G45.9 - Tblatoya Schmidt M.D.,FACP I10 Office Visit 09/09/2016 11:00a [facility] [place] [address] G45.9 Of [facility] F03.90 R47.1 R29.810 Office Visit 09/01/2016 4:00p [facility] [place] [address] B02.29 Office Visit 08/26/2016 2:40p [facility] Internal Medicine Tc Carrera, 73209 G45.9 - [place] Brayan Anaya,FACP I20.8 G40.89 L30.9 Office Visit 08/10/2016 1:00p [facility] Internal Tc Carrera, 28703 Z00.01 Medicine - [place] Brayan Anaya,FACP E11.22 N18.3 R60.1 R31.0 B02.9 N95.0 Office Visit 03/30/2016 2:00p [facility] Internal Tc Carrera, 39241 E11.22 Medicine - [place] Brayan Anaya,FACP D51.9 Office Visit 03/04/2016 3:00p [facility] Internal Tc Carrera, 21064 E11.22 Medicine - [place] Brayan Anaya,FACP M25.511 D51.9 Plan of Care Future Appointment(s):08/22/2017 2:30 pm - Yudith Cruz MD at [facility]05/17/2017 2:20 pm - Tc Carrera M.D.,FACP at [facility] Internal Medicine - [address]/17/2017 - Tc Carrera M.D.,FACPJ45.31 Mild persistent asthma with (acute) exacerbationComments:Prescribed Ventolin and Azithromycin for potential bacterial bronchitis. Please call our office if symptoms worsen.
[2017-03-21] MEDS ORDERED: NS 0.9% 1000 ML* 1,000 ML IV ONE (17:07)
[2017-03-21 18:02] LABS: ABS Basophils 0 10^3/ul (0-0.2); ABS Eosinophils 0.3 10^3/ul (0-0.6); ABS Lymphocytes 1.5 10^3/ul (1.0-4.8); ABS Monocytes 0.4 10^3/ul (0-0.8); ABS Neutrophils 2.4 10^3/ul (1.5-7.7); ABS Nucleated RBC 0 10^3/ul; Eosinophil % 6.6 % (0-6); Hematocrit 31 % (35-47); Hemoglobin 10.8 g/dl (12.0-16.0); Mean Corpuscular HGB Conc 35 g/dl (31-36); Mean Corpuscular Hemoglobin 32 pg (27-31); Mean Corpuscular Volume 93 fL (80-97); Mean Platelet Volume 8 um3 (7.4-10.4); Nucleated Red Blood Cells % 0; Platelet Count 188 10^3/ul (150-450); Red Blood Count 3.37 10^6/ul (4.0-5.4); Red Cell Distribution Width 14 % (10.5-15); White Blood Count 4.7 10^3/ul (3.5-10.8)
[2017-03-21 18:18] LABS: EGFR Non-African American 47.4 (>60)
[2017-03-21] MEDS ORDERED: Oseltamivir CAP* 75 MG PO ONE (18:40)
--- NOTE | 2017-03-21 18:47 | RAD ---
Indication: Chest pain, cough. 2 views of the chest including dual energy PA views demonstrate no mediastinal shift. Heart is of normal size and configuration. Lung holt demonstrate no pleural fluid, pneumonia or pneumothorax. IMPRESSION: No active cardiopulmonary disease is noted.
[2017-03-21 18:59] LABS: Urine Appearance Clear; Urine Blood 1+ (Negative); Urine Color Yellow; Urine Ketones Negative (Negative); Urine Protein 1+(30 mg/dL) (Negative); Urine Specific Gravity 1.006 (1.010-1.030); Urine Urobilinogen Negative (Negative)
[2017-03-21] MEDS ORDERED: Albuterol 2.5 MG/3 ML NEB.SOL* (0.083%) INH PRN (19:46)
[2017-03-21] MEDS ORDERED: Dextrose 50% Syringe 50 ML* 25 GM/50 ML SYRINGE IV PUSH PRN (19:46)
[2017-03-21] MEDS ORDERED: Ondansetron INJ* 2 MG/ML VIAL IV PRN (19:46)
[2017-03-21] MEDS ORDERED: Acetaminophen TAB* 325 MG PO PRN (19:46)
[2017-03-21] MEDS ORDERED: Benzonatate CAP* 100 MG PO PRN (19:49)
[2017-03-21] MEDS ORDERED: Albuterol/Ipratropium NEB.SOL* Albuterol 2.5 MG/Ipratropium 0.5 MG 3 ML INH SCH (20:00)
[2017-03-21] MEDS ORDERED: Insulin GLARGINE(*) 1 UNITS UNIT SUBCUT SCH (21:00)
[2017-03-21] MEDS ORDERED: Atorvastatin* 20 MG TAB PO SCH (21:00)
[2017-03-21] MEDS: Mometasone/Formoter 200/5 MDI INH SCH (21:54)
[2017-03-21] MEDS: Oseltamivir CAP* 30 MG CAP PO SCH (21:56)
[2017-03-21] MEDS: Heparin VIAL(*) 5000 UNITS/ML VIAL (FIVE THOUSAND) SUBCUT SCH (21:58)
[2017-03-21] MEDS: NS 0.9% 1000 ML* 1,000 ML IV ONE (22:00)
--- NOTE | 2017-03-21 23:29 | HP ---
CC: Dr. Carrera; Dr. Cruz; Dr. Rendon * HISTORY AND PHYSICAL: DATE OF ADMISSION: 03/21/17 PRIMARY CARE PROVIDER: Dr. Carrera. ATTENDING PROVIDER: Dr. Friend * (DICTATED BY NICOLA LEY NP) CHIEF COMPLAINT: 1. Anorexia. 2. Weakness. HISTORY OF PRESENT ILLNESS: Mrs. Rojas is an 86-year-old female patient. She has a history of moderate dementia, CKD history. She is legally blind in left eye. She has macular degeneration, history of asthma, TIA, CVA in the past , old stroke that was found on imaging, history of hypertension, diabetes, hyperlipidemia. She comes in today, the daughter is giving most of the history as the patient does not recall much of it, but over the last 7 to 10 days, the patient has had cold like symptoms. She started out with runny nose, cough, congestion. She was started on antibiotics and inhalers with Dr. Carrera, but last night she had an episode of described as a sharp, stabbing chest pain, worse with the cough and positional according to the daughter is how the patient described. The patient does not recall this now. They have been having low grade fevers noted at home in low 100s, upper like 99.9. Nothing over 101 that was recorded, but she has been having low grade fevers, decreased appetite, has not been feeling well. She has been having some intermittent confusion. She got up in the middle of the night last night and stripped her entire bed for no reason. She had some episodes of diarrhea last week. She really has not been eating and drinking; but despite this, they have been giving her furosemide at a reduced dose. The patient is just not acting herself. She was weak, she was not getting around as well. The family was concerned. They called Dr. Carrera's office today and he recommended her to come to ER to be evaluated. Here in the ED, she was noted to be positive for flu and indeterminate troponin. Because of this, we were asked to evaluate for admission. PAST MEDICAL HISTORY: Significant for: 1. Hypertension. 2. Diabetes. 3. Hyperlipidemia. 4. Dementia. 5. Left eye blindness. 6. Macular degeneration. 7. CKD stage 3. 8. Asthma. 9. TIA. 10. History of CVA. PAST SURGICAL HISTORY: The patient has had a colon resection. HOME MEDICATIONS: According to the list provided: 1. Levemir 20 to 24 units at bedtime. 2. FiberCon 1 tablet at bedtime, 1 tablet at noon. 3. She takes multivitamin 1 tablet daily. 4. Insulin sliding scale subcu t.i.d. before meals. 5. Furosemide 20 mg daily. 6. Allopurinol 100 mg daily. 7. Lipitor 20 mg daily. 8. Valsartan 40 mg daily. 9. Aspirin 81 mg or 162 mg daily as needed. 10. Tessalon Perles 100 mg p.o. t.i.d. 11. Z-Sheng take as prescribed. 12. Albuterol 2 puffs inhaled 4 times a day as needed. ALLERGIES TO MEDICATIONS: Include no known drug allergies. FAMILY HISTORY: Unknown. Her parents when the patient was 10 during the World War II. SOCIAL HISTORY: She is a former, she quit when she was 35. Does not drink alcohol. Lives with her family. Surrogate decision maker is her daughter and her son. REVIEW OF SYSTEMS: There are low-grade fevers documented at home. There is no significant weight change and no double vision or no ear discharge. There was rhinorrhea. There is no sore throat. There is no thyroid enlargement. There was chest pain last night. There was no orthopnea. No nocturnal dyspnea. There was no abdominal pain. No nausea, no vomiting, no dysuria, no frequency. There was no seizure. No loss of consciousness. No pruritus. No skin ulcerations. Review of 14 systems completed, all negative. PHYSICAL EXAMINATION GENERAL: Mrs. Rojas is an 86-year-old female patient. She is sitting in the ED stretcher. She does not appear to be in any acute distress. VITAL SIGNS: Blood pressure 145/84, pulse 78, respirations 18, O2 sat 99% on 2 L, temperature 98.2. HEENT: Head atraumatic, normocephalic. Eyes: Sclerae anicteric, not pale. Throat: Oral mucosa appears to be dry. No oropharyngeal erythema. NECK: Supple. LUNGS: Clear to auscultation bilaterally. There was wheezing in the lower lobes, but no rales or rhonchi. HEART: Sounds S1, S2. Regular rate and rhythm. No murmurs rubs or gallops. ABDOMEN: Soft, flat. Nontender. Bowel sounds are present. EXTREMITIES: Pulses were 2+ throughout. No peripheral edema. NEUROLOGIC: She is awake, she is oriented to herself only. Tongue is midline. Speech was clear. She had no gross focal deficits. SKIN: Intact. LABORATORY DATA: WBC 4.7, RBC 3.37, hemoglobin 10.8, hematocrit 31, platelet count 188. INR 132, potassium 4.9, chloride 100, bicarb 23, BUN 31, creatinine 1.09, near baseline, glucose 101. Lactic was 0.9, calcium 9, total bili 0.5. AST 31, ALT 13, alk phos 68, CK 169, CM-MB 2.2, troponin 0.07. CRP 11.15. BNP at 212. Albumin 3.6. Urine showed low specific gravity, 1+ blood, present hyaline cast. Serology positive for flu. She had a chest x-ray revealing no acute cardiopulmonary disease. 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 Consistent with her previous EKG, no ST elevation, T-wave inversion. Old medical records reviewed. ASSESSMENT AND PLAN: Mrs. Rojas is an 86-year-old female patient coming into the ED today with complaints of progressive confusion and weakness and on evaluation was found to have flu. She will be admitted under observation status for: 1. Influenza: I suspect this is a culprit causing her weakness, her decreased appetite, her not feeling well and the confusion. I will continue with Tamiflu and supportive care. I do not think she needs antibiotics at this point because there is no pneumonia. If she spikes any high fevers greater than 101, then obviously I would consider antibiotics. We will continue to follow her and hydrate her, continue supportive care. 2. Asthma: She is having some wheezing on exam, so I have ordered standing nebs and Dulera and p.r.n. albuterol. We will continue to follow. 3. Diabetes: She will be on lispro sliding scale. I have put her on 10 of Lantus because she has not been eating that much, so I have backed down on her Levemir dose essentially. 4. Hypertension: I will just continue the valsartan for the time being, we are going to hold the Lasix, we will restart when able. 5. Hyperlipidemia: Continue meds as prescribed. 6. Dementia with some acute delirium probably secondary to flu: We will continue with supportive care. 7. Chronic kidney disease: Creatinine is at baseline. 8. History of macular degeneration: Follows with her primary. 9. History of cerebrovascular disease and transient ischemic attack: Continue with secondary prevention. 10. DVT prophylaxis: She will be placed on heparin subcu. 11. Code status: Family wishes for her to be DNR. We will try to get the MOST form if possible. 12. Fluids, electrolytes, nutrition: She will have a regular diet. 13. Indeterminant troponins: This is probably secondary due to some demand ischemia from the flu. We will place her on telemetry today and cycle these. If they elevate, we will get Cardiology consult and echo. TIME SPENT: Time spent on the admission was 60 minutes, greater than half of the time was spent [id number] with the patient, obtaining history and physical , the other half of the time was spent going over the plan of care with the patient and implementing the plan of care. I did discuss plan of care with my attending, Dr. Friend, who is in agreement. NICOLA LEY, SOFY [id number]/CPS #: [id number] OSIEL
[2017-03-21] MEDS ORDERED: Albuterol/Ipratropium NEB.SOL* Albuterol 2.5 MG/Ipratropium 0.5 MG 3 ML INH PRN (23:32)
[2017-03-22] MEDS ORDERED: Albuterol/Ipratropium NEB.SOL* Albuterol 2.5 MG/Ipratropium 0.5 MG 3 ML INH SCH (03:00)
[2017-03-22] MEDS: NS 0.9% 1000 ML* 1,000 ML IV ONE (06:00)
[2017-03-22] MEDS: Heparin VIAL(*) 5000 UNITS/ML VIAL (FIVE THOUSAND) SUBCUT SCH (06:00)
[2017-03-22 06:10] LABS: ABS Basophils 0 10^3/ul (0-0.2); ABS Eosinophils 0.3 10^3/ul (0-0.6); ABS Lymphocytes 1.2 10^3/ul (1.0-4.8); ABS Monocytes 0.4 10^3/ul (0-0.8); ABS Neutrophils 2.4 10^3/ul (1.5-7.7); ABS Nucleated RBC 0 10^3/ul; Eosinophil % 6.4 % (0-6); Hematocrit 31 % (35-47); Hemoglobin 10.4 g/dl (12.0-16.0); Lymphocyte % 27.5 % (25-47); Mean Corpuscular HGB Conc 34 g/dl (31-36); Mean Corpuscular Hemoglobin 32 pg (27-31); Mean Corpuscular Volume 93 fL (80-97); Mean Platelet Volume 8 um3 (7.4-10.4); Nucleated Red Blood Cells % 0; Platelet Count 182 10^3/ul (150-450); Red Blood Count 3.28 10^6/ul (4.0-5.4); Red Cell Distribution Width 14 % (10.5-15); White Blood Count 4.3 10^3/ul (3.5-10.8)
[2017-03-22 06:23] LABS: INR 0.97 (0.77-1.02)
[2017-03-22 06:37] LABS: EGFR Non-African American 52.9 (>60)
[2017-03-22] MEDS: Mometasone/Formoter 200/5 MDI INH SCH (07:48)
[2017-03-22] MEDS: Insulin LISPRO* 1 UNITS UNIT SUBCUT SCH ×2 (08:21→12:36)
[2017-03-22] MEDS: Oseltamivir CAP* 30 MG CAP PO SCH (08:27)
[2017-03-22] MEDS ORDERED: Multivitamins/Minerals TAB PO SCH (09:00)
[2017-03-22] MEDS ORDERED: Valsartan TAB* 40 MG PO SCH (09:00)
[2017-03-22] MEDS ORDERED: Aspirin EC Low Dose* 81 MG TAB.EC PO SCH (09:00)
[2017-03-22] MEDS ORDERED: Allopurinol TAB* 100 MG PO SCH (09:00)
--- NOTE | 2017-03-23 08:17 | ED ---
Isaak Posada Angela, scribed for Haider Templeton MD on 03/21/17 at 1707 . Complex/Multi-Sys Presentation - HPI Summary HPI Summary: This pt is a 86 y/o female, accompanied by her daughter, presenting to [facility] for persistent cough. Daughter reports the pt has not been well for a week. Daughter states the pt was treated by Dr. Carrera for the flu and bronchitis, but the pt is still coughing. Per daughter, pt is unable to sleep in a supine position secondary to her cough. Pt has to sleep sitting up. Mother notes the pt has had increased confusion and weakness recently, as well as chest pain since last night. Pt had a chest XR yesterday, which was negative for pneumonia PMHx: dementia. - History Of Current Complaint Chief Complaint: EDGeneral Time Seen by Provider: 03/21/17 17:00 Hx Obtained From: Family/Well Servicing Rig Operator - Daughter Onset/Duration: Lasting Days, Still Present Timing: Days Severity Initially: Moderate Associated Signs And Symptoms: Positive: Confusion, Weakness, Cough, Chest Pain - Allergies/Home Medications Allergies/Adverse Reactions: Allergies Allergy/AdvReac Type Severity Reaction Status Date / Time No Known Allergies Allergy Verified 09/20/16 13:22 Home Medications: Home Medications Albuterol HFA INHALER* [Ventolin HFA Inhaler*] 2 puff PO QID PRN 03/21/17 [ History Confirmed 03/21/17] Allopurinol TAB* [Zyloprim 100 MG TAB*] 100 mg PO DAILY 03/21/17 [History Confirmed 03/21/17] Aspirin EC Low Dose* [Ecotrin EC Low Dose 81 MG*] 81 - 162 mg PO DAILY PRN 03/21 [History Confirmed 03/21/17] Atorvastatin* [Lipitor 40 MG*] 20 mg PO BEDTIME 03/21/17 [History Confirmed ] Benzonatate CAP* [Tessalon 100 MG CAP*] 100 mg PO TID PRN 03/21/17 [History Confirmed 03/21/17] Calcium Polycarbophil TAB* [Fibercon TAB*] 1,875 mg PO 1200 03/21/17 [History Confirmed 03/21/17] Calcium Polycarbophil TAB* [Fibercon TAB*] 1,875 mg PO QPM 03/21/17 [History Confirmed 03/21/17] Furosemide TAB* [Lasix TAB*] 20 mg PO QAM 03/21/17 [History Confirmed 03/21/17] Insulin Detemir (NF) [Levemir (NF)] 20 - 24 unit SUBCUT BEDTIME 03/21/17 [ History Confirmed 03/21/17] Insulin LISPRO* [HumaLOG*] 6 - 8 units SUBCUT TID AC PRN 03/21/17 [History Confirmed 03/21/17] Multiple Vitamins W/ Minerals [Centrum Silver 50+Women] 1 tab PO DAILY 03/21/17 [History Confirmed 03/21/17] Valsartan TAB* [Diovan TAB*] 40 mg PO DAILY 03/21/17 [History Confirmed 03/21/17 ] PMH/Surg Hx/FS Hx/Imm Hx Endocrine/Hematology History: Reports: Hx Diabetes Cardiovascular History: Reports: Hx Hypertension, Other Cardiovascular Problems/ Disorders - DIABETIC Denies: Hx Pacemaker/ICD Respiratory History: Reports: Hx Asthma History: Reports: Hx Renal Disease - Stage III Sensory History: Denies: Hx Hearing Aid Psychiatric History: Denies: Hx Panic Disorder - Surgical History Surgery Procedure, Year, and Place: CATARACT NA. RESECTION OF INTESTINE - DUE TO INFECTION Infectious Disease History: No Infectious Disease History: Denies: Traveled Outside the [place] in Last 30 Days - Family History Known Family History: Positive: Cardiac Disease, Respiratory Disease - asthma, Other - [place] - Social History Alcohol Use: None Substance Use Type: Reports: None Hx Tobacco Use: No Smoking Status (MU): Former Smoker Amount Used/How Often: QUIT 50 YEARS AGO Review of Systems Negative: Fever, Chills Positive: Chest Pain Positive: Cough Neurological: Other - POS: confusion Positive: Weakness All Other Systems Reviewed And Are Negative: Yes Physical Exam - Summary Physical Exam Summary: VITAL SIGNS: Reviewed. GENERAL: Patient is an elderly and fragile female who is lying comfortable in the stretcher. Patient is not in any acute respiratory distress. Pt is nontoxic appearing. HEAD AND FACE: No signs of trauma. No ecchymosis, hematomas or skull depressions. No sinus tenderness. EYES: PERRLA, EOMI x 2, No injected conjunctiva, no nystagmus. EARS: Hearing grossly intact. Ear canals and tympanic membranes are within normal limits. MOUTH: Oropharynx within normal limits. NECK: Supple, trachea is midline, no adenopathy, no JVD, no carotid bruit, no c- spine tenderness, neck with full ROM. CHEST: Symmetric, no tenderness at palpation LUNGS: Clear to auscultation bilaterally. No wheezing or crackles. CVS: Regular rate and rhythm, S1 and S2 present, no murmurs or gallops appreciated. ABDOMEN: Soft, non-tender. No signs of distention. No rebound no guarding, and no masses palpated. Bowel sounds are normal. EXTREMITIES: FROM in all major joints, no edema, no cyanosis or clubbing. NEURO: Alert and oriented x 3. No acute neurological deficits. Speech is normal and follows commands. SKIN: Dry and warm. Pt has an eczema patch on the right shoulder and right side of the neck. Triage Information Reviewed: Yes Vital Signs On Initial Exam: Initial Vitals Temp Pulse Resp BP Pulse Ox 98.5 F 72 16 133/52 100 03/21/17 13:37 03/21/17 13:37 03/21/17 13:37 03/21/17 13:37 03/21/17 13:37 Vital Signs Reviewed: Yes Diagnostics - Vital Signs Vital Signs Temp Pulse Resp BP Pulse Ox 03/21/17 14:55 98.2 F 76 20 135/53 100 03/21/17 13:37 98.5 F 72 16 133/52 100 - Laboratory Lab Results: Lab Results 03/21/17 Range/Units 16:47 Influenza A (Rapid) Negative (Negative) Influenza B (Rapid) Positive H (Negative) Result Diagrams: 03/22/17 05:41 03/22/17 05:41 Lab Statement: Any lab studies that have been ordered have been reviewed, and results considered in the medical decision making process. - Radiology Chest XR Xray Interpretation: No Acute Changes - IMPRESSION: No active cardiopulmonary disease is noted. Dr. Templeton has reviewed this radiology report. Radiology Interpretation Completed By: Radiologist - EKG 17:46 Cardiac Rate: NL EKG Rhythm: Sinus Rhythm - at 72 bpm EKG Comparison: No Significant Change - similar to prior EKG on 08/24/16. Complex Multi-Symp Course/Dx Course Of Treatment: This pt is a 86 y/o female, accompanied by her daughter, presenting to [facility] for persistent cough. Daughter reports the pt has not been well for a week. Daughter states the pt was treated by Dr. Carrera for the flu and bronchitis, but the pt is still coughing. Per daughter, pt is unable to sleep in a supine position secondary to her cough. Pt has to sleep sitting up. Mother notes the pt has had increased confusion and weakness recently, as well as chest pain since last night. Pt had a chest XR yesterday, which was negative for pneumonia. PMHx: dementia. Test results without any significant abnormalities except for slight anemia, chronic renal insufficiency, troponin of 0.07. Influenza B is positive. Chest XR: No active cardiopulmonary disease is noted. In the ED course, the pt was hydrated. She was given Tamiflu. Since she is complaining of chest pain and has increased troponin, I discussed the case with Dr. Monsivais, hospitalist, who accepted the pt for admission. Pt is hemodynamically stable, alert and oriented x3. - Diagnoses Provider Diagnoses: Influenza B, Chest pain, Elevated troponin, rule out ACS - Physician Notifications Discussed Care Of Patient With: Rima Monsivais Time Discussed With Above Provider: 17:40 Instructed by Provider To: Other - I discussed pt care with Dr. Monsivais, hospitalist, who has agreed to admit the pt. Discharge - Discharge Plan Condition: Stable Disposition: ADMITTED TO [facility] The documentation as recorded by the Isaak sanchez Angela accurately reflects the service I personally performed and the decisions made by me, Haider Templeton MD.
[2017-03-23 10:39] VITALS: BP 114/56
--- NOTE | 2017-03-23 17:28 | DS ---
CC: Dr. Carrera * DISCHARGE SUMMARY: DATE OF ADMISSION: 03/21/17 DATE OF DISCHARGE: 03/22/17 PRIMARY CARE PROVIDER: Dr. Carrera. PRINCIPAL DIAGNOSIS: Influenza B. SECONDARY DIAGNOSES: 1. Hypertension. 2. Type 2 diabetes. 3. Hyperlipidemia. 4. Dementia. 5. Stage 3 chronic kidney disease. 6. Asthma. 7. History of transient ischemic attack and cerebrovascular accident . DISCHARGE MEDICATIONS: 1. Tamiflu 30 mg p.o. b.i.d. x8 doses. 2. Albuterol 2 puffs inhaled 4 times daily p.r.n. shortness of breath. 3. Tessalon 100 mg p.o. t.i.d. p.r.n. cough. 4. Aspirin 81 to 162 mg p.o. daily p.r.n. pain. 5. Valsartan 40 mg p.o. daily. 6. Lipitor 20 mg p.o. q.h.s. 7. Allopurinol 100 mg p.o. daily. 8. Lasix 20 mg p.o. daily. 9. Lispro 6 to 8 units subcutaneous t.i.d. a.c. p.r.n. hyperglycemia. 10. Centrum Silver 50+ Women 1 tab p.o. daily. 11. FiberCon 1875 mg p.o. twice daily. 12. Levemir 20 to 24 units subcutaneous q.h.s. HOSPITAL COURSE: Ms. Rojas is an 86-year-old female, who presented to the emergency room on 03/21/17 with complaints of anorexia and weakness. The patient was identified to be influenza B positive. The patient was admitted for hydration. The patient's creatinine, however, was 1.09, which is improved compared to her baseline prior to her admission. Her creatinine did trend down with hydration. On the day of discharge, the patient was feeling better. Her daughter felt that she was stable enough to go home. On admission, the patient was found to have an elevated troponin of 0.07. Her troponin remained stable throughout the hospitalization. I suspect the troponin elevation is secondary to demand ischemia related to the flu. I did discuss with the patient's daughter that we will not pursue any further workup for the elevated troponin, which the daughter agreed with. At this point, the patient is stable for discharge home. FOLLOWUP CONCERNS: The patient is being discharged to home today, 03/22/17. The patient is to follow up with Dr. Carrera in the next 4 to 7 days. ACTIVITY LEVEL: As tolerated. DIET: Regular. CONDITION ON DISCHARGE: Stable. TIME SPENT: Twenty-five minutes was spent discharging this patient. [id number]/CPS #: [id number] MTDD
== END 2017-03-22 13:50 | disposition home or self-care (01) ==
LOC: ED 13:12 → MEDTELE 19:41
PROVIDERS: ADMIT Hospitalist; ATTEND Hospitalist
DX: J11.1 Influenza due to unidentified influenza virus with other respiratory manifestations (principal); R07.9 Chest pain, unspecified; R41.0 Disorientation, unspecified; R53.1 Weakness; R05 Cough; Z87.891 Personal history of nicotine dependence; R79.89 Other specified abnormal findings of blood chemistry; E11.9 Type 2 diabetes mellitus without complications; E78.5 Hyperlipidemia, unspecified; F03.90 Unspecified dementia, unspecified severity, without behavioral disturbance, psychotic disturbance, mood disturbance, and anxiety; N18.3 Chronic kidney disease, stage 3 (moderate); J45.909 Unspecified asthma, uncomplicated; Z86.73 Personal history of transient ischemic attack (TIA), and cerebral infarction without residual deficits
CPT/HCPCS: 36415; 71046; 80048; 80053; 81003; 81015; 82550; 82553; 83605; 83880; 84484; 85025; 85610; 86140; 87040; 87502; 93005; 94640; 99284; A9270-GY; G0378; G8978-GP-CI; G8979-GP-CI; G8980-GP-CI; J1644

== ENCOUNTER 2017-04-04 12:28 | Emergency (ER) | payer MEDICARE ==
[2017-04-04] MEDS ORDERED: NS 0.9% 1000 ML* 1,000 ML IV ONE (15:57)
[2017-04-04 16:24] LABS: ABS Basophils 0.1 10^3/ul (0-0.2); ABS Eosinophils 0.1 10^3/ul (0-0.6); ABS Lymphocytes 1.3 10^3/ul (1.0-4.8); ABS Monocytes 0.4 10^3/ul (0-0.8); ABS Neutrophils 9.1 10^3/ul (1.5-7.7); ABS Nucleated RBC 0 10^3/ul; Eosinophil % 0.7 % (0-6); Hematocrit 33 % (35-47); Hemoglobin 11.4 g/dl (12.0-16.0); Lymphocyte % 11.7 % (25-47); Mean Corpuscular HGB Conc 35 g/dl (31-36); Mean Corpuscular Hemoglobin 32 pg (27-31); Mean Corpuscular Volume 92 fL (80-97); Mean Platelet Volume 8 um3 (7.4-10.4); Nucleated Red Blood Cells % 0; Platelet Count 298 10^3/ul (150-450); Red Blood Count 3.56 10^6/ul (4.0-5.4); Red Cell Distribution Width 14 % (10.5-15); White Blood Count 10.9 10^3/ul (3.5-10.8)
[2017-04-04 16:48] LABS: EGFR Non-African American 40.8 (>60)
[2017-04-04 17:33] LABS: Urine Appearance Clear; Urine Blood 1+ (Negative); Urine Color Straw; Urine Ketones Negative (Negative); Urine Protein Negative (Negative); Urine Specific Gravity 1.008 (1.010-1.030); Urine Urobilinogen Negative (Negative)
[2017-04-04 18:12] VITALS: BP 165/47
--- NOTE | 2017-04-04 18:57 | RAD ---
HISTORY: Cough COMPARISONS: March 21, 2017 VIEWS: 2: Frontal and lateral views of the chest. FINDINGS: CARDIOMEDIASTINAL SILHOUETTE: The cardiomediastinal silhouette is normal. JENNIFER: The jennifer are normal. PLEURA: The costophrenic angles are sharp. No pleural abnormalities are noted. LUNG PARENCHYMA: There is hyperinflation with flattening of the diaphragm . ABDOMEN: The upper abdomen is clear. There is no subphrenic gas. BONES AND SOFT TISSUES: There is a scoliotic curvature of the spine. Degenerative changes are noted. OTHER: None. IMPRESSION: NO ACTIVE CARDIOPULMONARY DISEASE.
--- NOTE | 2017-04-15 20:10 | ED ---
Brad Posada Stephanie, scribed for Faustino Zhu MD on 04/04/17 at 1606 . HPI Cardiac - HPI Summary HPI Summary: The pt is an 86 y/o F presenting to the ED with c/o hypotension that began on . Systems include increased sleeping and rash over neck, back and thigh. The pt denies SOB, dizziness, and pain. The pt was recently treated for influenza B. - History of Current Complaint Chief Complaint: EDGeneral Stated Complaint: LOW BLOOD PRESSURE Time Seen by Provider: 04/04/17 15:55 Hx Obtained From: Patient, Family/Radiographer Mammographer - daughter Onset/Duration: Started Days Ago - 5 Timing: Constant Pain Intensity: 0 Pain Scale Used: 0-10 Numeric Aggravating Factor(s): Nothing Alleviating Factor(s): Nothing Associated Signs and Symptoms: Positive: Other: - increased sleeping and rash over neck, back and thigh. Negative: SOB, dizziness, and pain. 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 RESECTION OF INTESTINE - DUE TO INFECTION Infectious Disease History: No Infectious Disease History: Denies: Traveled Outside the [place] in Last 30 Days - Family History Known Family History: Positive: Cardiac Disease, Respiratory Disease - asthma, Other - [place] - Social History Occupation: Retired Lives: With Family Alcohol Use: None Substance Use Type: Reports: None Hx Tobacco Use: No Smoking Status (MU): Former Smoker Amount Used/How Often: QUIT 50 YEARS AGO Review of Systems Positive: Other - increased sleeping. Negative: Fever Positive: Rash All Other Systems Reviewed And Are Negative: Yes Physical Exam - Summary Physical Exam Summary: Appearance: Well-appearing, Well-nourished Skin: Warm, Dry, rash on neck, thigh scabbed in a possibly vesicular pattern Eyes: Normal, PERRL, EOMI, sclera anicteric ENT: Normal Neck: Supple, nontender Respiratory: Clear to auscultation Cardiovascular: S1, S2, no murmur, no rub, no gallop Abdomen: Soft, nontender, no organomegaly Bowel sounds: Present Musculoskeletal: Normal, Strength/ROM Intact, no edema, pulses symmetrical Neurological: Pt is unaware of date, slow to respond, cranial nerves II-XII WNL , follows commands, gait not tested, sensation intact to pin and light touch Psychiatric: affect normal, behavior appropriate, dressed appropriately, judgment intact Triage Information Reviewed: Yes Vital Signs On Initial Exam: Initial Vitals Temp Pulse Resp BP Pulse Ox 97.9 F 63 18 133/44 94 04/04/17 12:32 04/04/17 12:32 04/04/17 12:32 04/04/17 12:32 04/04/17 12:32 Vital Signs Reviewed: Yes Diagnostics - Vital Signs Vital Signs Temp Pulse Resp BP Pulse Ox 04/04/17 15:26 67 97 04/04/17 15:23 121/51 04/04/17 15:11 97.7 F 18 130/91 97 04/04/17 12:32 97.9 F 63 18 133/44 94 - Laboratory Result Diagrams: 04/04/17 16:14 04/04/17 16:14 Lab Statement: Any lab studies that have been ordered have been reviewed, and results considered in the medical decision making process. - Radiology CXR Xray Interpretation: No Acute Changes Radiology Interpretation Completed By: ED Physician - Negative CXR - EKG 17:02 EKG Rhythm: Sinus Rhythm - 69 BPM EKG Interpretation: Trivasicular block Disposition - Course Course Of Treatment: The pt is more awake and arousable. No arrythmia, No bradycardia. The pt refused a pacemaker. - Diagnoses Provider Diagnoses: probable complete heart block, Dehydration, Influenza Discharge - Discharge Plan Condition: Stable Disposition: HOME Patient Education Materials: Dehydration (ED), Influenza (ED) Referrals: Tc Carrera MD [Primary Care Provider] - 3 Days Additional Instructions: RETURN TO THE EMERGENCY DEPARTMENT FOR CHANGING OR WORSENING SYMPTOMS The documentation as recorded by the Brad sanchez Stephanie accurately reflects the service I personally performed and the decisions made by me, Faustino Zhu MD.
== END 2017-04-04 19:13 | disposition home or self-care (01) ==
LOC: ED 12:28
DX: E86.0 Dehydration (principal); J11.1 Influenza due to unidentified influenza virus with other respiratory manifestations; Z87.891 Personal history of nicotine dependence
CPT/HCPCS: 36415; 71046; 80053; 81003; 81015; 85025; 87077; 87086; 93005; 96360; 99283

== ENCOUNTER 2017-09-08 17:56 | Observation (INO) | payer MEDICARE ==
--- OUTSIDE RECORDS SUMMARY | 2017-09-08 18:23 | XMS REPORT ---
:1930 External Reference #:[id number] Author Organization [employer] Address [address] [place] [address] Phone [phone] Care Team Providers Name Role Phone Tc Carrera MD Primary Care Physician Unavailable Payers Type Date Identification Numbers Payment Provider Subscriber Health Maintenance Policy Number: Medicare Blue Ppo Wendy [facility] [place] [place] [id number] Group Number: [id number] [address] [address] PayID: [id number] DANNA Mishra [id number] Advance Directives Type Date Description Status Comment Other Directive 04/28/2016 Living Will Current and Verified Problems Date Description Provider Status Onset: 07/02/2017 Iron deficiency anemia Tc Carrera M.D.,FACP Active Note: FOBT POS Onset: 02/15/2017 Chronic kidney disease stage 3 Hai Wells M.D.,FACP Onset: 03/04/2016 Type 2 diabetes mellitus Hai Wells M.D.,FACP Onset: 03/04/2016 Asthma Hai Wells M.D.,FACP Onset: 03/04/2016 Diabetic peripheral neuropathy Hai Wells M.D.,FACP Onset: 03/04/2016 Vitamin B12 deficiency (non Tc Carrera, Active anemic) JaclynFACP Onset: 03/30/2016 Uric acid urolithiasis Tc Carrera, Active АНДРЕЙ AnayaP Onset: 08/26/2016 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 on Rosanna.Milvia,FACP electrocardiogram Onset: 09/07/2016 Carotid artery stenosis Tc Carrera Active JASMYN Anaya Note: LT 50-69% Onset: 09/09/2016 Transient cerebral ischemia Yudith Cruz MD Active Onset: 09/09/2016 Unspecified dementia 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 Cruz MD Active behavioral disturbance Onset: 02/24/2017 Abnormal gait Yudith Cruz MD Active Onset: 08/01/2017 History of fall Yudith Cruz MD Active Onset: 03/04/2016 Chronic kidney disease Tc Carrera, Wilver Anaya,FACP Inactive: 03/04/2016 Onset: 03/04/2016 Chronic kidney disease stage Tc Carrera M.D.,АНДРЕЙP Inactive 3 Inactive: 03/30/2016 Onset: 03/04/2016 Primary gout Tc Carrera M.D.,FACP Inactive Inactive: 03/30/2016 Onset: 03/30/2016 Chronic kidney disease stage Tc Carrera M.D.,FACP Inactive 2 Inactive: 02/15/2017 Onset: 03/04/2016 Memory impairment Tc Carrera M.D.,FACP Inactive Inactive: 07/02/2017 Family History Date Family Member(s) Problem(s) Comments General Cancer General Seizure Disorder General Hypertension General Heart Disease Father due to Combat () - WW Fatality Mother due to Combat () - Fatality Children 3 : (age 66 First [...] Alerts Date Description Reaction Status Severity Comments 05/17/2017 Tamiflu active possible overall rash 03/04/2016 NKDA inactive Medications Medication Date Status Form Strength Qnty SIG Indications Ordering Provider Ferrex 150 07/02 Active Capsules 150mg 30cap 1 by mouth s daily Milvia Carrera M.D.,FACP Sarna 05/17 Active Lotion 0.5-0.5% 100g topical as needed for Milvia Carrera pruritis Jaclyn,FACJennifer Ventolin HFA 03/17 Active Aerosol 108(90Bas 1unit 2 puffs by e) s mouth four Milvia Carrera, mcg/Act times a day as Jaclyn,АНДРЕЙP needed Blood Glucose 11/30 Active Kit W/Device 1unit check blood Monitoring s sugar 4 times Milvia Carrera System daily and prn M.D.,FACP Blood Glucose 11/30 Active Strips 150un check blood Test its sugar 4 times Milvia Carrera, daily and as MJeramie,АНДРЕЙP needed Lancets 11/30 Active Misc 28G 150un check blood its sugar 4 times Milvia Carrera, daily and prn M.D.,FACP Valsartan 09/12 Active Tablets 40mg 90tab 1 tab by mouth s every day Milvia Carrera M.D.,JASMYN Aspirin Ec 08/26 Active Tablets 81mg 90tab 1-[address] brenton Carrera M.D.,JASMYN Atorvastatin 03/30 Active Tablets 40mg 90tab take 1/2 s tablet at Milvia Carrera, bedtime (fill Jaclyn,JASMYN when patient requests) BD Insulin 03/11 Active Misc 31G X 400un use 4 syringes Tc Syringe /07/12" 1 its daily and as Milvia Carrera, Ultrafine/U-100 ML needed Jaclyn,JASMYN /1ML/31G X 07/12" Levemir Active Solution 100Unit/M 30ml 18-20 units at Tc L bedtime Milvia Carrera M.D.,[facility] Furosemide Active Tablets 20mg 90tab 1 by mouth Tc s every morning Milvia Carrera M.D.,[facility] Centrum Silver Active Tablets 1 by mouth Unknown every day Fiber Active Capsules 3 at noon and 3 in evening Humalog Active Solution 100Unit/M 30ml 4-6 units per L sliding scale Milvia Carrera, three times a M.D.,[facility] day with each meal and as needed Triamcinolone Active Cream 0.1% apply thin Unknown Acetonide film twice daily Fluocinonide Active Solution 0.05% topical 2x a day as needed Doxycycline 07/25 Hx Tablets 100mg 10tab 1 by mouth Tc Hyclate s twice a day Milvia Carrera, - Rosanna.DYenni,[facility] 07/30 Cefuroxime 07/22 Hx Tablets 250mg 14tab 1 by mouth Tc Axetil s twice a day Milvia Carrera, - for 7 d M.D.,[facility] 07/25 Prednisone 03/29 Hx Tablets 10mg 18tab 3 tabs every s day for 4 D. Debi, - days, then M.D.,[facility] 04/05 reduce by tab every 2 days until finished Betamethasone 03/21 Hx Lotion 0.05% 60ml topical qd prn Tc Dipropionate Milvia Carrera, - [facility] 04/21 Azithromycin 03/17 Hx Tablets 250mg 6tabs 2 every day for 1 day, Milvia Carrera, - then 1 every M.D.,[facility] Benzonatate 03/17 Hx Capsules 100mg 30cap one by mouth s three times Milvia Carrera, - daily as M.D.,[facility] 04/01 needed for cough Valacyclovir 08/10 Hx Tablets 1gm 21tab by mouth every s 8 hours for 1 D. Debi - lee Anaya,[facility] 08/17 Atorvastatin 03/11 Hx Tablets 80mg 90tab 1 by mouth Buddy s every day Bandar, - FAMILY COACH 03/30 Cyanocobalamin 03/04 Hx Solution 1000mcg/M 6ml 1 milliliters L intramuscular Milvia Carrera, - [id number] Jaclyn,[facility] 03/30 Allopurinol Hx Tablets 100mg 90tab 1 by mouth [facility] / s every day Radha Denise M.D.,[facility] 04/05 Valsartan Hx Tablets 80mg 90tab 1 by mouth in [facility] s at night Radha Denise M.D.,[facility] 09/12 Doxycycline Hx Capsules 50mg take one Unknown Hyclate / capsule twice - daily 05/17 Methotrexate Hx Tablets 2.5mg 5 tabs by [facility] / mouth every D. Debi - lee Anaya,[facility] 07/22 Immunizations CPT Code Status Date Vaccine Reaction Lot # [id number] Given 02/15/2017 Pneumococcal Conjugate Vaccine 13 [id number] Valent For Intramuscular Use 64063 Given 11/09/2016 Influenza Virus Vaccine, Quadrivalent, no reaction [id number] Split, Preservative Free Vital Signs Date Vital Result Comment 08/21/2017 Weight 146.00 lb Heart Rate 79 /min BP Systolic Sitting 140 mmHg BP Diastolic Sitting 50 mmHg Body Temperature 97.1 F O2 % BldC Oximetry 96 % 08/01/2017 Weight 144.00 lb Heart Rate 70 /min BP Systolic 110 mmHg BP Diastolic 58 mmHg 05/17/2017 Weight 146.00 lb Heart Rate 83 /min BP Systolic Sitting 122 mmHg BP Diastolic Sitting 58 mmHg Body Temperature 97.6 F O2 % BldC Oximetry 98 % 05/15/2017 Weight 146.00 lb Heart Rate 62 /min BP Systolic 134 mmHg BP Diastolic 84 mmHg Body Temperature 98.4 F 05/01/2017 Heart Rate 104 /min BP Systolic Sitting 170 mmHg BP Diastolic Sitting 60 mmHg BP Systolic Recheck 148 mmHg BP Diastolic Recheck 66 mmHg Body Temperature 99.9 F O2 % BldC Oximetry 97 % 04/05/2017 Weight 142.50 lb Heart Rate 61 /min BP Systolic Sitting 116 mmHg BP Diastolic Sitting 56 mmHg Body Temperature 97.2 F O2 % BldC Oximetry 98 % 03/17/2017 Weight 148.00 lb Heart Rate 83 [...] Test Result H/L Range Note Laboratory test 08/21/2017 Hemoglobin A1c 7.8 High 5-7 finding Urine Culture And 08/12/2017 Urine Culture SEE RESULT 1 Sensitivities BELOW CBC Auto Diff 08/12/2017 White Blood Count 7.4 10^3/uL 3.5-10.8 Red Blood Count 3.86 10^6/uL Low 4.00-5.40 Hemoglobin 12.2 g/dL 12.0-16.0 Hematocrit 37 % 35-47 Mean Corpuscular Volume 95 fL 80-97 Mean Corpuscular Hemoglobin 32 pg High 27-31 Mean Corpuscular HGB Conc 33 g/dL 31-36 Red Cell Distribution Width 13 % 10.5-15 Platelet Count 234 10^3/uL 150-450 Mean Platelet Volume 8.2 um3 7.4-10.4 Abs Neutrophils 4.7 10^3/uL 1.5-7.7 Abs Lymphocytes 1.9 10^3/uL 1.0-4.8 Abs Monocytes 0.4 10^3/uL 0-0.8 Abs Eosinophils 0.3 10^3/uL 0-0.6 Abs Basophils 0 10^3/uL 0-0.2 Abs Nucleated RBC 0 10^3/uL Granulocyte % 64.1 % 38-83 Lymphocyte % 25.2 % 25-47 Monocyte % 5.5 % 0-7 Eosinophil % 4.6 % 0-6 Basophil % 0.6 % 0-2 Nucleated Red Blood Cells % 0 Urinalysis Profile 08/12/2017 Urine Color Straw Urine Appearance Clear Urine Specific Aurora 1.012 1.010-1.030 Urine pH 7.0 5-9 Urine Urobilinogen Negative Negative Urine Ketones Negative Negative Urine Protein 1+(30 mg/dL) Negative Urine Leukocytes Trace Negative Urine Blood Negative Negative Urine Nitrite Negative Negative Urine Bilirubin Negative Negative Urine Glucose Negative Negative Urine White Blood Cell Trace(0-5/hpf) Absent Urine Red Blood Cell Absent Absent Urine Bacteria Absent Absent Comp Metabolic Panel 08/12/2017 Sodium 139 mmol/L 135-145 Potassium 5.0 mmol/L 3.5-5.0 Chloride 104 mmol/L 101-111 Co2 Carbon Dioxide 26 mmol/L 22-32 Anion Gap 9 mmol/L 2-11 Glucose 74 mg/dL 70-100 Blood Urea Nitrogen 42 mg/dL High 6-24 Creatinine 1.18 mg/dL High 0.51-0.95 BUN/Creatinine Ratio 35.6 High 8-20 Calcium 10.1 mg/dL 8.6-10.3 Total Protein 7.7 g/dL 6.4-8.9 Albumin 4.2 g/dL 3.2-5.2 Globulin 3.5 g/dL 2-4 Albumin/Globulin Ratio 1.2 1-3 Total Bilirubin 0.40 mg/dL 0.2-1.0 Alkaline Phosphatase 54 U/L 34-104 Alt 11 U/L 7-52 Ast 17 U/L 13-39 Egfr Non- 43.2 >60 Egfr 55.6 >60 2 Urinalysis Profile 07/21/2017 Urine Color Yellow Urine Appearance Cloudy Urine Specific Aurora 1.011 1.010-1.030 Urine pH 5.0 5-9 Urine Urobilinogen Negative Negative Urine Ketones Negative Negative Urine Protein Negative Negative Urine Leukocytes 3+ Negative Urine Blood 3+ Negative * * Negative 3 Urine Nitrite Negative Negative Urine Bilirubin Negative Negative Urine Glucose Negative Negative Urine White Blood Cell 3+(>20/hpf) Absent Urine Red Blood Cell 3+(>10/hpf) Absent Urine Bacteria 1+ Absent Urine Hyaline Casts Present Absent Urine Culture And 07/21/2017 Urine Culture SEE RESULT BELOW 4 Sensitivities Occult Blood,Stool (3 07/05/2017 Occult Blood - neg x2 pos x1 Spec) Stool Iron & Iron Binding 06/29/2017 Iron 42 g/dL Low 50-212 Capacity Unsaturated Iron Binding 269 g/dL Total Iron Binding Capacity 311 g/dL 250-450 Transferrin 222 mg/dL 203-362 % Iron Saturation 14 % Low 15-55 Laboratory test finding 06/29/2017 Ferritin 94.6 ng/mL 11-307 5 Protein Electrophoresis 06/29/2017 Total Protein(Pep) 6.7 g/dL 6.3 - 7.9 Albumin 3.1 g/dL 3.4-4.7 Alpha-1 Globulin 0.3 g/dL 0.1-0.3 Alpha-2 Globulin 1.1 g/dL 0.6-1.0 Beta Globulin 1.0 g/dL 0.7-1.2 Gamma Globulin 1.3 g/dL 0.6-1.6 Albumin/Globulin Ratio 0.87 Impression See Comment 6 Laboratory test finding 06/29/2017 Vitamin B12 899 pg/mL 180-914 7 LDH 173 U/L 140-271 8 Retic Count 06/29/2017 Retic Count 0.9 % 0.5-1.5 Corrected Retic Count 0.6 % 0.5-1.5 Maturation Factor Retic 2.0 Retic Index 0.30 Mean Retic Volume 126.6 Immature Retic Fraction 0.47 RBC Retic Count 2.93 10^6/uL Low 4.6-6.2 Hematocrit for Retic CNT 28 % Low 35-47 Laboratory test finding 05/17/2017 Hemoglobin A1c 7.9 High 5-7 Urine Microalbumin Random 04/26/2017 Ur Microalbumin (mg/L) 44.3 mg/L Urine Creatinine 38.99 mg/dL Urine Microalbumin/Creatinine 113.6 ug/mg High <31 Urinalysis Profile 04/26/2017 Urine Color Straw Urine Appearance Clear Urine Specific Aurora 1.008 Low 1.010-1.030 Urine pH 6.0 5-9 Urine Urobilinogen Negative Negative Urine Ketones Negative Negative Urine Protein Negative Negative Urine Leukocytes 1+ Negative Urine Blood 2+ Negative Urine Nitrite Negative Negative Urine Bilirubin Negative Negative Urine Glucose Negative Negative Urine White Blood Cell 1+(6-10/hpf) Absent Urine Red Blood Cell Trace(0-2/hpf) Absent Urine Bacteria Absent Absent Urine Squamous Epithelial Cell Present Absent Urine Culture And 04/26/2017 Urine Culture SEE RESULT BELOW 9 Sensitivities Basic Metabolic Panel 04/26/2017 Sodium 132 mmol/L Low 133-145 Potassium 5.4 mmol/L High 3.5-5.0 Chloride 101 mmol/L 101-111 Co2 Carbon Dioxide 25 mmol/L 22-32 Anion Gap 6 mmol/L 2-11 Glucose 168 mg/dL High 70-100 Blood Urea Nitrogen 35 mg/dL High 6-24 Creatinine 1.17 mg/dL High 0.51-0.95 BUN/Creatinine Ratio 29.9 High 8-20 Calcium 9.2 mg/dL 8.6-10.3 Egfr Non- 43.7 >60 Egfr 56.1 >60 10 Laboratory test finding 04/04/2017 Point of Care Glucose 258 mg/dL High 70 -100 11 Urinalysis Profile 04/04/2017 Urine Color Straw Urine Appearance Clear Urine Specific Aurora 1.008 Low 1.010-1.030 Urine pH 6.0 5-9 Urine Urobilinogen Negative Negative Urine Ketones Negative Negative Urine Protein Negative Negative Urine Leukocytes 2+ Negative Urine Blood 1+ Negative Urine Nitrite Negative Negative Urine Bilirubin Negative Negative Urine Glucose 1+(50 mg/dL) Negative Urine White Blood Cell Trace(0-5/hpf) Absent Urine Red Blood Cell Trace(0-2/hpf) Absent Urine Bacteria Absent Absent Urine Culture And 04/04/2017 Urine Culture SEE RESULT BELOW 12 Sensitivities CBC Auto Diff 04/04/2017 White Blood Count 10.9 10^3/uL High 3.5-10.8 Red Blood Count 3.56 10^6/uL Low 4.0-5.4 Hemoglobin 11.4 g/dL Low 12.0-16.0 Hematocrit 33 % Low 35-47 Mean Corpuscular Volume 92 fL 80-97 Mean Corpuscular Hemoglobin 32 pg High 27-31 Mean Corpuscular HGB Conc 35 g/dL 31-36 Red Cell Distribution Width 14 % 10.5-15 Platelet Count 298 10^3/uL 150-450 Mean Platelet Volume 8 um3 7.4-10.4 Abs Neutrophils 9.1 10^3/uL High 1.5-7.7 Abs Lymphocytes 1.3 10^3/uL 1.0-4.8 Abs Monocytes 0.4 10^3/uL 0-0.8 Abs Eosinophils 0.1 10^3/uL 0-0.6 Abs Basophils 0.1 10^3/uL 0-0.2 Abs Nucleated RBC 0 10^3/uL Granulocyte % 83.6 % High 38-83 Lymphocyte % 11.7 % Low 25-47 Monocyte % 3.5 % 1-9 Eosinophil % 0.7 % 0-6 Basophil % 0.5 % 0-2 Nucleated Red Blood Cells % 0 Comp Metabolic Panel 04/04/2017 Sodium 133 mmol/L 133-145 Chloride 100 mmol/L Low 101-111 Co2 Carbon Dioxide 28 mmol/L 22-32 Glucose 267 mg/dL High 70-100 Blood Urea Nitrogen 54 mg/dL High 6-24 Creatinine 1.24 mg/dL High 0.51-0.95 BUN/Creatinine Ratio 43.5 High 8-20 Calcium 9.5 mg/dL 8.6-10.3 Total Protein 7.0 g/dL 6.4-8.9 Albumin 3.5 g/dL 3.2-5.2 Globulin 3.5 g/dL 2-4 Albumin/Globulin Ratio 1.0 1-3 Total Bilirubin 0.40 mg/dL 0.2-1.0 Alkaline Phosphatase 57 U/L 34-104 Alt 10 U/L 7-52 Ast 11 U/L Low 13-39 Egfr Non- 40.8 >60 Egfr 52.5 >60 13 Potassium 5.6 mmol/L High 3.5-5.0 Anion Gap 5 mmol/L 2-11 Laboratory test 03/21/2017 Rapid Influenza A B SEE RESULT BELOW 14 finding Antigen Rapid Influenza A & B 03/21/2017 Influenza A NEGATIVE Negative 15 Molecular Molecular Influenza B Molecular POSITIVE Negative Laboratory test 03/21/2017 B-Type Natriuretic 212 pg/mL High 16 finding Peptide BNP Laboratory test 03/21/2017 Blood Culture SEE RESULT BELOW 17 finding CKMB 03/21/2017 CKMB ng/mL 2.2 ng/mL 0.6-6.3 Laboratory test 03/21/2017 Creatine Kinase(CK) 169 U/L 10-223 finding C Reactive Protein 11.15 mg/L High < 5.00 18 Troponin-I (TnI) 0.07 ng/mL High <0.04 19 Comp Metabolic Panel 03/21/2017 Sodium 132 mmol/L Low 133-145 Chloride 100 mmol/L Low 101-111 Co2 Carbon Dioxide 23 mmol/L 22-32 Glucose 101 mg/dL High 70-100 Blood Urea Nitrogen 31 mg/dL High 6-24 Creatinine 1.09 mg/dL High 0.51-0.95 BUN/Creatinine Ratio 28.4 High 8-20 Calcium 9.0 mg/dL 8.6-10.3 Total Protein 7.3 g/dL 6.4-8.9 Albumin 3.6 g/dL 3.2-5.2 Globulin 3.7 g/dL 2-4 Albumin/Globulin Ratio 1.0 1-3 Total Bilirubin 0.50 mg/dL 0.2-1.0 Alkaline Phosphatase 68 U/L 34-104 Alt 13 U/L 7-52 Egfr Non- 47.4 >60 Egfr 60.9 >60 20 Potassium 4.9 mmol/L 3.5-5.0 Anion Gap 9 mmol/L 2-11 Ast 31 U/L 13-39 Laboratory test finding 03/21/2017 Lactic Acid 0.9 mmol/L 0.5-2.0 21 CBC Auto Diff 03/21/2017 White Blood Count 4.7 10^3/uL 3.5-10.8 Red Blood Count 3.37 10^6/uL Low 4.0-5.4 Hemoglobin 10.8 g/dL Low 12.0-16.0 Hematocrit 31 % Low 35-47 Mean Corpuscular Volume 93 fL 80-97 Mean Corpuscular Hemoglobin 32 pg High 27-31 Mean Corpuscular HGB Conc 35 g/dL 31-36 Red Cell Distribution Width 14 % 10.5-15 Platelet Count 188 10^3/uL 150-450 Mean Platelet Volume 8 um3 7.4-10.4 Abs Neutrophils 2.4 10^3/uL 1.5-7.7 Abs Lymphocytes 1.5 10^3/uL 1.0-4.8 Abs Monocytes 0.4 10^3/uL 0-0.8 Abs Eosinophils 0.3 10^3/uL 0-0.6 Abs Basophils 0 10^3/uL 0-0.2 Abs Nucleated RBC 0 10^3/uL Granulocyte % 51.2 % 38-83 Lymphocyte % 32.0 % 25-47 Monocyte % 9.5 % High 1-9 Eosinophil % 6.6 % High 0-6 Basophil % 0.7 % 0-2 Nucleated Red Blood Cells % 0 Urinalysis Profile 03/21/2017 Urine Color Yellow Urine Appearance Clear Urine Specific Aurora 1.006 Low 1.010-1.030 Urine pH 5.0 5-9 Urine Urobilinogen Negative Negative Urine Ketones Negative Negative Urine Protein 1+(30 mg/dL) Negative Urine Leukocytes Negative Negative Urine Blood 1+ Negative Urine Nitrite Negative Negative Urine Bilirubin Negative Negative Urine Glucose Negative Negative Urine White Blood Cell Trace(0-5/hpf) Absent Urine Red Blood Cell Trace(0-2/hpf) Absent Urine Bacteria Absent Absent Urine Hyaline Casts Present Absent Laboratory test finding 02/15/2017 Hemoglobin A1c 7.5 [...] Egfr Non- 36.1 >60 Egfr 46.4 >60 22 CBC Auto Diff 01/11/2017 White Blood Count [...] finding 08/31/2016 Troponin-I (TnI) 0.05 ng/mL High <0.04 CKMB 08/31/2016 CKMB ng/mL 3.0 ng/mL 0.6-6.3 [...] finding 08/24/2016 Lactic Acid 1.2 mmol/L 0.5-2.0 23 Comp Metabolic Panel 08/24/2016 Sodium 135 mmol/L [...] Egfr Non- 34.7 >60 Egfr 44.6 >60 24 Laboratory test finding 08/24/2016 Magnesium 2.1 mg/dL 1.9-2.7 Troponin-I (TnI) 0.05 ng/mL High <0.04 25 Basic Metabolic Panel 08/23/2016 Sodium 134 mmol/L 133-145 Potassium 5.5 mmol/L High 3.5-5.0 Chloride 103 mmol/L 101-111 Co2 Carbon Dioxide 26 mmol/L 22-32 Anion Gap 5 mmol/L 2-11 Glucose 130 mg/dL High 70-100 Blood Urea Nitrogen 52 mg/dL High 6-24 Creatinine 1.37 mg/dL High 0.51-0.95 BUN/Creatinine Ratio 38.0 High 8-20 Calcium 9.7 mg/dL 8.6-10.3 Egfr Non- 36.5 >60 Egfr 46.9 >60 26 CBC Auto Diff 08/23/2016 White Blood Count [...] % 0 Ua Routine 08/10/2016 Ua Specific Aurora 1.020 Ua PH 5 Ua Color pale yellow Ua Appera clear Ua WBC ++ Ua Protein neg Ua Glucose norm Ua Ketones neg Ua Bilirubin neg Ua Urobilinogen norm Ua Nitrite neg Ua Occult Blood about 250 Laboratory test finding 08/08/2016 Hemoglobin A1c (Glyco 7.2 % High Less than 6.0 27 HGB) Vitamin B12 1150 pg/mL High 180-914 28 Lipid Profile (Trig/Chol/HDL) 08/08/2016 Triglycerides 79 mg/dL 29 Cholesterol 153 mg/dL 30 HDL Cholesterol 39.9 mg/dL 31 LDL Cholesterol 97 mg/dL 32 Comp Metabolic Panel 08/08/2016 Sodium 138 mmol/L [...] Egfr Non- 39.4 >60 Egfr 50.7 >60 33 Lipid Profile (Trig/Chol/HDL) 03/09/2016 Triglycerides 79 mg/dL 34 Cholesterol 131 mg/dL 35 HDL Cholesterol 44.4 mg/dL 36 LDL Cholesterol 71 mg/dL 37 Comp Metabolic Panel 03/09/2016 Sodium 136 mmol/L [...] Egfr Non- 51.8 >60 Egfr 66.7 >60 38 Laboratory test 03/09/2016 Hemoglobin A1c 7.3 % High Less than 6.0 39 finding (Glyco HGB) Urine Microalbumin 03/09/2016 Urine Creatinine 57.99 mg/dL Random Ur Microalbumin (mg/L) 150.3 mg/L Urine Microalbumin/Creatinine 259.1 ug/mg High <31 CBC Auto Diff 03/09/2016 White Blood Count [...] 03/09/2016 Vitamin B12 1037 pg/mL High 180-914 40 TSH (Thyroid Stim Horm) 2.41 mcIU/mL 0.34-5.60 41 Uric Acid 5.3 mg/dL 2.3-6.6 42 1 SEE RESULT BELOW Name: KLAAUWER,WENDY : [address]: Vanita Carrera MD Acct: [id number] Unit: [id number] AGE: 86 Location: LAB Re08/12/17 SEX: F Status: REG REF SPEC: [id number] JACOB: 08/12/[address]: Tc Carrera MD REQ: [id number] RECD: 08/12/17 STATUS: COMP _ SOURCE: URINE SPDESC: ORDERED: Urine Culture Procedure Result Reported Site Urine Culture Final 08/14/17- 904 ML No growth of clinically significant organisms * - [facility] . END OF REPORT DEPARTMENT OF PATHOLOGY, [address] [place] [address] Fili Gambino M.D. Director [facility] # [id number] 2 Because ethnic data is not always [...] 5 Kidney failure <15 (or dialysis) 3 *Ascorbic acid is present which may interfere with detection of blood. 4 SEE RESULT BELOW Name: BRANALPHONSEKAMI CASTANEDAWENDY : [address]: Vanita Carrera MD Acct: [id number] Unit: [id number] AGE: 86 Location: [facility] Re07/21/17 SEX: F Status: REG REF SPEC: [id number] JACOB: 07/21/171114 SUBM DR: Tc Carrera MD REQ: [id number] RECD: 07/21/17 STATUS: RES _ SOURCE: URINE SPDESC: ORDERED: Urine Culture Procedure Result Reported Site Urine Culture Preliminary 07/22/17- 6 ML Organism 1 ESCHERICHIA COLI Haiku Count >100,000 (Many) CFU/ML * ML - Main Lab . END OF REPORT DEPARTMENT OF PATHOLOGY, [address] [place] [address] Fili Gambino M.D. Director [facility] # [id number] 5 Copy Result to: PEDRO LUIS FAULKNER ([id number]) 6 RESULT: No apparent monoclonal protein on serum electrophoresis. Test Performed by: [facility] - [address] [address] 7 Normal Range 180 to 914 Indeterminate Range 145 to 180 Deficient Range <145 8 Copy Result to: PEDRO LUIS FAULKNER ([id number]) 9 SEE RESULT BELOW Name: WENDY ROJAS : [address]: Luis Alberto Merchant MD Acct: [id number] Unit: [id number] AGE: 86 Location: LAB Re04/26/17 SEX: F Status: REG REF SPEC: [id number] JACOB: 04/26/17-1214 [facility] DR: Luis Albetro Merchant MD REQ: [id number] RECD: 04/26/17 STATUS: TAPAN ABDI DR: Tc Carrera MD _ SOURCE: URINE SPDESC: ORDERED: Urine Culture Procedure Result Reported Site Urine Culture Final 04/27/17- 1232 ML No Growth (<1,000 CFU/mL) * ML - Main Lab . END OF REPORT DEPARTMENT OF PATHOLOGY, [address] [place] [address] Fili Gambino M.D. Director [facility] # [id number] 10 Because ethnic data is not always readily [...] 15-29 5 Kidney failure <15 (or dialysis) 11 Trolley Cleaner: [id number] 12 SEE RESULT BELOW Name: WENDY ROJAS : [address]: Faustino Zhu MD Acct: [id number] Unit: [id number] AGE: 86 Location: ED Re04/04/17 SEX: F Status: DEP ER SPEC: [id number] JACOB: 04/04/17 [facility] DR: Faustino Zhu MD REQ: [id number] RECD: 04/04/17 STATUS: TAPAN ABDI DR: Tc Carrera MD _ SOURCE: URINE SPDESC: ORDERED: Urine Culture Procedure Result Reported Site Urine Culture Final 04/06/17- 1145 ML Organism 1 CORYNEBACTERIUM STRIATUM Haiku Count 25-50,000 (Moderate) CFU/ML * ML - MAIN LAB ([facility]) . END OF REPORT * ML=Testing performed at Main Lab DEPARTMENT OF PATHOLOGY, [address] [place] [address] Fili Gambino M.D. Director [facility] # [id number] 13 Because ethnic data is not always readily [...] 15-29 5 Kidney failure <15 (or dialysis) 14 SEE RESULT BELOW Name: WENDY ROJAS : [address]: Kim Rutledge Acct: [id number] Unit: [id number] AGE: 86 Location: ED Re03/21/17 SEX: F Status: REG ER SPEC: [id number] JACOB: 03/21/17 [facility] DR: Lorin ROBLERO REQ: [id number] RECD: 03/21/17 STATUS: TAPAN ABDI DR: [facility] Yudith Rendon MD _ SOURCE: NASAL SPDESC: ORDERED: Flu A B Request Procedure Result Reported Site Rapid Influenza A B Request Final 03/21/171646 ML Specimen received for Influenza A/B Molecular testing * ML - MAIN LAB ([facility]) . END OF REPORT * ML=Testing performed at Main Lab DEPARTMENT OF PATHOLOGY, [address] [place] [address] Fili Gambino M.D. Director [facility] # [id number] 15 Trolley Cleaner: [id number] 16 >100 to <200 pg/mL: likely compensated congestive heart failure (CHF) 200 to 400 pg/mL: likely moderate CHF >400 pg/mL: likely moderate to severe CHF 17 SEE RESULT BELOW Name: JUAN RTONYAWENDY : [address]: Sydnie Baldwin DO Acct: [id number] Unit: [id number] AGE: 86 Location: [place] [address] Re03/21/17 Dis: 03/22/17 SEX: F Status: DIS Frederic SPEC: [id number] JACOB: 03/21/17 [facility] DR: Haider Templeton MD REQ: [id number] RECD: 03/21/17 STATUS: TAPAN ABDI DR: Yudith Rendon MD _ SOURCE: BLOOD,VENO SPDESC: ORDERED: Blood Cult Procedure Result Reported Site Aerobic Culture Bottle Final 03/26/17- 1755 ML No Growth Day 5 Anaerobic Culture Bottle Final 03/26/17- 1755 ML No Growth Day 5 * ML - MAIN LAB ([facility]) . END OF REPORT * ML=Testing performed at Main Lab DEPARTMENT OF PATHOLOGY, [address] [place] [address] Fili Gambino M.D. Director [facility] # [id number] 18 Acute inflammation: >10.00 19 Result TnIDx:0.07 Called to [id number] at: 18:21:18 by:[id number] Read back by: [id number] 20 Because ethnic data is not always readily [...] 15-29 5 Kidney failure <15 (or dialysis) 21 [facility] Severe Sepsis and Septic Shock Management Bundle Measure requires all lactic acids initially measuring >2.0 mmol/L be repeated. 22 Because ethnic data is not always readily [...] 15-29 5 Kidney failure <15 (or dialysis) 23 [facility] Severe Sepsis and Septic Shock Management Bundle Measure requires all lactic acids initially measuring >2.0 mmol/L be repeated. 24 Because ethnic data is not always readily [...] 15-29 5 Kidney failure <15 (or dialysis) 25 Result TnIDx:0.05 Called to [id number] at: 22:57:43 by:[id number] Read back by: [id number] 26 Because ethnic data is not always readily [...] 15-29 5 Kidney failure <15 (or dialysis) 27 Therapeutic target for the treatment of diabetes Mellitus patients is <7% HBA1C, and in selective patients <6.0%.Please refer to [place] [employer] Diabetic care guidelines for further information. 28 Normal Range 180 to 914 Indeterminate Range 145 to 180 Deficient Range <145 29 Desirable <150 Borderline high 150-199 High 200-499 Very High >500 30 Desirable <200 Borderline high 200-239 High >239 31 Low <40 Desirable: 40-60 High: >60 32 Desirable: <100 mg/dL Near Optimal: 100-129 mg/dL Borderline High: 130-159 mg/dL High: 160-189 mg/dL Very High: >189 mg/dL 33 Because ethnic data is not always readily [...] 15-29 5 Kidney failure <15 (or dialysis) 34 Desirable <150 Borderline high 150-199 High 200-499 Very High >500 35 Desirable <200 Borderline high 200-239 High >239 36 Low <40 Desirable: 40-60 High: >60 37 Desirable: <100 mg/dL Near Optimal: 100-129 mg/dL Borderline High: 130-159 mg/dL High: 160-189 mg/dL Very High: >189 mg/dL 38 Because ethnic data is not always readily [...] 15-29 5 Kidney failure <15 (or dialysis) 39 Therapeutic target for the treatment of diabetes Mellitus patients is <7% HBA1C, and in selective patients <6.0%.Please refer to [place] [employer] Diabetic care guidelines for further information. 40 Normal Range 180 to 914 Indeterminate Range 145 to 180 Deficient Range <145 41 FASTING 10 HOUR 42 FASTING 10 HOUR Procedures Date CPT Code Description Status 05/10/2017 53845 Biopsy Skin Lesion Single Completed 03/22/2017 68114 EKG, Interpretation Only Completed 09/07/2016 38058 ECHO Transthorasic Realtime 2D W Doppler & Color Flow Completed Hosp 08/31/2016 32349 EEG Recording Awake & Asleep Completed 03/11/2016 Diabetic Retinal Eye Exam Completed 03/09/2016 Diabetic Foot Exam Completed Encounters Type Date Location Provider CPT E/M Dx Office Visit 07/12/2017 4:30p [facility] [place] [address] T88.7xxD Office Visit 06/13/2017 9:40a [facility] [place] [address] T88.7xxA Z79.899 Office Visit 05/17/2017 2:20p [facility] Medicine Tc Carrera, 34709 E11.8 - [place] Brayan Anaya,FACP L27.9 Office Visit 05/15/2017 1:30p [facility] [address] F03.90 Z91.81 Office Visit 05/10/2017 3:00p [facility] [place] [address] L21.8 T88.7xxA Office Visit 05/01/2017 11:40a [facility] Internal Tc Carrera, 089[address] T88.7xxD Medicine - [place] Brayan Anaya,FACP I10 G47.51 Office Visit 04/26/2017 2:00p [facility] [place] [address] T88.7xxA Office Visit 04/05/2017 8:20a [facility] Tc Carrera, 24661 R00.1 - [place] Brayan Anaya,FACP I95.89 L27.9 Office Visit 03/22/2017 2:38p [facility], Sydnie Baldwin, 32309 J11.1 Hospitalists D.O. E11.8 I10 F03.90 Office Visit 03/21/2017 2:38p [facility], David Hagan, 29689 J11.1 Hospitalists N.P. E11.8 F03.90 I10 Office Visit 03/17/2017 3:40p [facility] Medicine Radha Steel 92173 J45.31 [place] Brayan Carrera M.D.,FACP Office Visit 02/24/2017 10:00a [facility] [address] F03.90 R26.89 R47.1 R29.810 Office Visit 02/15/2017 1:40p [facility] Internal Tc Carrera, 66465 E11.22 Medicine - [place] Brayan Anaya,FACP N18.3 R60.1 Z23 Office Visit 11/09/2016 11:50a [facility] Internal Tc Carrera, 87126 E11.22 Medicine - [place] Brayan Anaya,FACP M62.81 Z23 Office Visit 09/12/2016 9:10a [facility] Medicine Tc Carrera, 15898 G45.9 - [place] Brayan Anaya,FACP I10 Office Visit 09/09/2016 11:00a [facility] [place] [address] G45.9 Of [facility] F03.90 R47.1 R29.810 Office Visit 09/01/2016 4:00p [facility] [place] [address] B02.29 Office Visit 08/26/2016 2:40p [facility] Medicine Tc Carrera, 29763 G45.9 - [place] Brayan Anaya,FACP I20.8 G40.89 L30.9 Office Visit 08/10/2016 1:00p [facility] Internal Tc Carrera, 27958 Z00.01 Medicine - [place] Brayan Anaya,FACP E11.22 N18.3 R60.1 R31.0 B02.9 N95.0 Office Visit 03/30/2016 2:00p [facility] Tc Carrera, 45846 E11.22 Medicine - [place] Brayan Anaya,FACP D51.9 Office Visit 03/04/2016 3:00p [facility] Tc Carrera, 61052 E11.22 Medicine - [place] Brayan Anaya,FACP M25.511 D51.9 Plan of Care Future Appointment(s):11/22/2017 2:40 pm - DALJIT Hughes at [facility] - [address]12/07/2017 3:00 pm - Chintan Cha M.D. at [facility]08/21/2017 - Tc Carrera M.D.,FACPE11.8 Type 2 diabetes mellitus with unspecified complicationsComments:You are meeting goal for blood sugar control. Continue current dosage of medications.You are on a moderate-potency statin to prevent new or recurrent heart disease, which is common in diabetics.Goals:Goal Hemoglobin A1c is less than 7.0% in ages 18- 74 Goal Hemoglobin A1c is between 7.0% and 8.0% in age over 75 Goal Blood pressure is less than 130/85. Cholesterol should be lowered by a high or moderate-dose statin.F03.90 Unspecified dementia without behavioral disturbanceComments:Follow up with Dr. Cha regularly.D50.8 Other iron deficiency anemiasComments:Discussed recent bloodwork. Decreased Ferrex to 1 pill daily.
--- NOTE | 2017-09-08 19:06 | RAD ---
INDICATION: Chest and epigastric pain. COMPARISON: Comparison is made with a prior chest x-ray study from April 04, 2017. TECHNIQUE: A single AP views of the chest was obtained in the sitting position. FINDINGS: The heart is within normal limits in size. There is mitral annular calcification. There is a small left upper lobe infiltrate. The lungs are otherwise clear. No pleural effusion is seen. IMPRESSION: SMALL LEFT UPPER LOBE INFILTRATE RECOMMEND PA AND LATERAL CHEST FILMS FOR FURTHER EVALUATION WHEN THE PATIENT IS CLINICALLY ABLE.
[2017-09-08 19:07] LABS: ABS Basophils 0 10^3/ul (0-0.2); ABS Eosinophils 0.1 10^3/ul (0-0.6); ABS Lymphocytes 0.6 10^3/ul (1.0-4.8); ABS Monocytes 0.1 10^3/ul (0-0.8); ABS Nucleated RBC 0 10^3/ul; Eosinophil % 1.6 % (0-6); Hematocrit 30 % (35-47); Hemoglobin 10.6 g/dl (12.0-16.0); Mean Corpuscular HGB Conc 35 g/dl (31-36); Mean Corpuscular Hemoglobin 32 pg (27-31); Mean Corpuscular Volume 92 fL (80-97); Mean Platelet Volume 7.6 um3 (7.4-10.4); Nucleated Red Blood Cells % 0; Platelet Count 217 10^3/ul (150-450); Red Blood Count 3.31 10^6/ul (4.00-5.40); Red Cell Distribution Width 13 % (10.5-15); White Blood Count 5.8 10^3/ul (3.5-10.8)
[2017-09-08 19:29] LABS: EGFR Non-African American 36.1 (>60)
--- NOTE | 2017-09-08 19:29 | ED ---
Abdominal Pain/Female - HPI Summary HPI Summary: This patient is an 86 year old F presenting to [facility] accompanied by daughter with a chief complaint of epigastric abd pain that began earlier today and worsened throughout the date. The patient rates the pain 5/10 in severity. Symptoms aggravated by nothing. Symptoms alleviated by Tylenol. Patient reports R hip pain, R foot pain, decreased appetite (began 1 week ago), on and off constipation, nausea, low grade fever, and cough (chronic). Patient denies vomiting. - History of Current Complaint Chief Complaint: EDChestPainROMI Stated Complaint: ABD PAIN Time Seen by Provider: 09/08/17 18:59 Hx Obtained From: Patient ?: No Onset/Duration: Sudden Onset, Lasting Hours, Still Present Timing: Constant Severity Initially: Moderate Severity Currently: Moderate Pain Intensity: 5 Pain Scale Used: 0-10 Numeric Location: Epigastric Radiates: No Aggravating Factor(s): Nothing Alleviating Factor(s): OTC Analgesics Associated Signs and Symptoms: Positive: Other: - Positive R hip pain, R foot pain, decreased appetite (began 1 week ago), on and off constipation, nausea, low grade fever, and cough (chronic). Negative vomiting. Allergies/Adverse Reactions: Allergies Allergy/AdvReac Type Severity Reaction Status Date / Time oseltamivir [From Tamiflu] Allergy Severe rash,hives Verified 09/09/17 00:49 Home Medications: Home Medications Multivitamins/Minerals TAB* [Theragran/minerals TAB*] 1 tab PO DAILY 09/08/17 [ History Confirmed 09/08/17] PMH/Surg Hx/FS Hx/Imm Hx Previously Healthy: No Endocrine/Hematology History: Reports: Hx Diabetes Cardiovascular History: Reports: Hx Hypertension, Other Cardiovascular Problems/ Disorders - DIABETIC Denies: Hx Pacemaker/ICD Respiratory History: Reports: Hx Asthma History: Reports: Hx Chronic Renal Failure, Hx Renal Disease - Stage III Sensory History: Reports: Hx Contacts or Glasses, 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 RESECTION OF INTESTINE - DUE TO INFECTION Infectious Disease History: No Infectious Disease History: Denies: Traveled Outside the [place] in Last 30 Days - Family History Known Family History: Positive: Cardiac Disease, Respiratory Disease - asthma, Other - [place] - Social History Occupation: Retired Lives: With Family Alcohol Use: None Substance Use Type: Reports: None Hx Tobacco Use: No Smoking Status (MU): Former Smoker Amount Used/How Often: QUIT 50 YEARS AGO Review of Systems Positive: Fever Positive: Cough Positive: Abdominal Pain, Nausea, Other - Positive decreased appetite. Negative : Vomiting Positive: Other - Positive R hip pain and R foot pain All Other Systems Reviewed And Are Negative: Yes Physical Exam - Summary Physical Exam Summary: Appearance: Well-appearing, Well-nourished, lying in bed comfortably Skin: Warm, dry, no obvious rash Eyes: sclera anicteric, no conjunctival pallor ENT: mucous membranes moist, pharynx appears normal, edentulous Neck: Supple, nontender Respiratory: Clear to auscultation, no signs of respiratory distress Cardiovascular: Normal S1, S2. No murmurs. Normal distal pulses in tibial and radial bilaterally. Abdomen: Soft, mild epigastric tenderness without peritoneal signs, normal active bowel sounds present Musculoskeletal: Normal, Strength/ROM Intact Neurological: A&Ox3, awake and alert, mentation is normal, speech is fluent and appropriate Psychiatric: affect is normal, does not appear anxious or depressed Triage Information Reviewed: Yes Vital Signs On Initial Exam: Initial Vitals Temp Pulse Resp BP Pulse Ox 98.3 F 80 16 117/85 100 09/08/17 17:59 09/08/17 17:59 09/08/17 17:59 09/08/17 17:59 09/08/17 17:59 Vital Signs Reviewed: Yes Diagnostics - Vital Signs Vital Signs Temp Pulse Resp BP Pulse Ox 09/08/17 17:59 98.3 F 80 16 117/85 100 - Laboratory Lab Results: Lab Results 09/08/17 Range/Units 18:55 WBC 5.8 (3.5-10.8) 10^3/ul RBC 3.31 L (4.00-5.40) 10^6/ul Hgb 10.6 L (12.0-16.0) g/dl Hct 30 L (35-47) % MCV 92 (80-97) fL MCH 32 H (27-31) pg MCHC 35 (31-36) g/dl RDW 13 (10.5-15) % Plt Count 217 (150-450) 10^3/ul MPV 7.6 (7.4-10.4) um3 Neut % (Auto) 86.4 H (38-83) % Lymph % (Auto) 10.0 L (25-47) % [place] % (Auto) 1.7 (0-7) % Eos % (Auto) 1.6 (0-6) % Baso % (Auto) 0.3 (0-2) % Absolute Neuts (auto) 5.0 (1.5-7.7) 10^3/ul Absolute Lymphs (auto) 0.6 L (1.0-4.8) 10^3/ul Absolute Monos (auto) 0.1 (0-0.8) 10^3/ul Absolute Eos (auto) 0.1 (0-0.6) 10^3/ul Absolute Basos (auto) 0 (0-0.2) 10^3/ul Absolute Nucleated RBC 0 10^3/ul Nucleated RBC % 0 Result Diagrams: 09/08/17 18:55 09/08/17 18:55 Lab Statement: Any lab studies that have been ordered have been reviewed, and results considered in the medical decision making process. - Radiology CXR Radiology Interpretation Completed By: Radiologist - CXR reveals, per radiologist, small left upper lobe infiltrate recommend PA and lateral chest films for further evaluation when the patient is clinically stable. ED physician has reviewed this radiology report. - CT Abdomen and Pelvis CT Interpretation Completed By: Radiologist - Abdomen and pelvis CT reveals, per radiologist, 1. PERIPORTAL EDEMA WITHIN THE LIVER NONSPECIFIC FINDING ALTHOUGH MAY BE ASSOCIATED WITH HEPATITIS RECOMMEND CORRELATION WITH LIVER FUNCTION TESTS. 2. ANTERIOR ABDOMINAL WALL HERNIA CONTAINING NONDISTENDED SMALL BOWEL AND LARGE BOWEL. 3. LIMITED STUDY DUE TO MOTION ARTIFACT. ED physician has reviewed this radiology report. - Additional Comments Diagnostic Additional Comments: EKG taken at 1809 reveals NSR at 77 BPM, P waves, QRS complex, and T waves are within normal limits,RBBB, no ischemic changes. This is a normal EKG US abdomen reveals, per radiologist, Normal gallbladder. No gallbladder wall thickening or pericholecystic fluid. No gallstones. principal technologist reports Lott sign is negative. Liver upper limits of normal size 17.9 cm. Normal bile duct at 4 mm diameter. No right hydronephrosis. No right upper quadrant free fluid. ED provider has reviewed this radiology report. Abdominal Pain Fem Course/Dx - Diagnoses Provider Diagnoses: Ascending cholangitis - Provider Notifications Discussed Care Of Patient With: Sarath Friend Time Discussed With Above Provider: 21:14 Instructed by Provider To: Other - Consult with Dr. Friend (hospitalist) at 211. He agrees to admit pt for further evaluation and recommends a US abdomen. Discharge - Sign-Out/Discharge Documenting (check all that apply): Patient Departure - Discharge Plan Condition: Guarded Disposition: ADMITTED TO [facility] - Billing Disposition and Condition Condition: GUARDED Disposition: Admitted to [facility]
[2017-09-08] MEDS ORDERED: Iodixanol* (CONTRAST) 320 MG/ML 100 ML SDV IV ONE (19:33)
--- NOTE | 2017-09-08 20:59 | RAD ---
INDICATION: Epigastric pain, possible acute cholecystitis or bowel ischemia. COMPARISON: There are no prior studies available for comparison. TECHNIQUE: A CT scan of the abdomen and pelvis was performed with intravenous and without oral contrast following intravenous injection of 82 ml of Visipaque 320 nonionic contrast. Contiguous axial sections were obtained from the lung bases through the symphysis pubis. Images were reconstructed in the coronal and sagittal planes. The exam is limited due to motion artifact. FINDINGS: There is mild dependent left lower lobe subsegmental atelectasis. No pleural effusion is present. The liver and spleen are normal in size. There is periportal edema present within the liver. No significant focal hepatic abnormality is seen. The gallbladder is nondistended. No calcified gallstones are noted. The pancreas appears to be within normal limits. The adrenal glands and kidneys are normal in size. No hydronephrosis is present. There appears to be bilateral renal cortical scarring. There is a 1.6 cm cyst in the upper pole of the right kidney. The aorta is normal in caliber with severe calcific plaque present. No significant enlarged retroperitoneal lymph nodes are seen. Evaluation of these bowel is limited without oral contrast. The stomach, small and large bowel appear nondistended. The appendix is not visualized. There are scattered diverticuli within the colon. There is no evidence for diverticulitis or colitis. There is an anterior abdominal wall hernia containing nondistended colon and small bowel. Uterus is retroverted with calcifications suggestive of small fibroids. No free intraperitoneal air or fluid is seen. There is diffuse degenerative disc disease in the lumbar spine and moderate bilateral osteoarthritic change in the hips. No significant focal osseous abnormality is seen. IMPRESSION: 1. PERIPORTAL EDEMA WITHIN THE LIVER NONSPECIFIC FINDING ALTHOUGH MAY BE ASSOCIATED WITH HEPATITIS RECOMMEND CORRELATION WITH LIVER FUNCTION TESTS. 2. ANTERIOR ABDOMINAL WALL HERNIA CONTAINING NONDISTENDED SMALL BOWEL AND LARGE BOWEL. 3. LIMITED STUDY DUE TO MOTION ARTIFACT.
[2017-09-08] MEDS ORDERED: Piperacillin/Tazobac ADVAN(*) 3.375 GM in NS 0.9% 100 ML* 100 ML IVPB ONE (21:07)
[2017-09-08] MEDS ORDERED: Aspirin EC TAB* 81 MG TAB.EC PO PRN (23:13)
[2017-09-08] MEDS ORDERED: Acetaminophen TAB* 325 MG PO PRN (23:18)
[2017-09-08] MEDS ORDERED: Ondansetron INJ* 2 MG/ML VIAL IV PRN (23:18)
[2017-09-08] MEDS ORDERED: Dextrose 50% Syringe 50 ML* 25 GM/50 ML SYRINGE IV PUSH PRN (23:18)
[2017-09-08] MEDS: NS 0.9% 1000 ML* 1,000 ML IV SCH (23:55)
[2017-09-09 01:26] LABS: Urine Appearance Clear; Urine Blood 2+ (Negative); Urine Color Yellow; Urine Ketones Negative (Negative); Urine Protein Negative (Negative); Urine Red Blood Cell 2+(6-10/hpf) (Absent); Urine Specific Gravity 1.035 (1.010-1.030); Urine Urobilinogen Negative (Negative); Urine White Blood Cell 3+(>20/hpf) (Absent)
--- NOTE | 2017-09-09 01:42 | HP ---
CC: Dr. Carrera * [facility] MEDICINE HISTORY AND PHYSICAL: DATE OF ADMISSION: 09/08/17 PRIMARY CARE PHYSICIAN: Dr. Carrera. ATTENDING PHYSICIAN: Dr. Sarath Friend * (dictation provided by Jessy Ogden NP). CHIEF COMPLAINT: Mid to left upper quadrant abdominal pain. HISTORY OF PRESENT ILLNESS: Ms. Rojas is an 86-year-old female with a past medical history of severe dementia, diabetes, and hypertension who presents today to the hospital accompanied by her family with whom she lives with concern for left upper quadrant abdominal pain. Ms. Rojas speaks Polish, but also relies heavily on Hong [place]er. She also has severe dementia. Communication with her was facilitated with her family who also provide most of the history of present illness. Per the report, Ms. Rojas has had an ongoing slow decline recently. For the past 2 months, she has been having increasing back pain, neck pain, and foot pain and decreasing mobility. Over the past 2 or 3 weeks, they have noticed that she has had decreased appetite even when offered some of her favorite foods. At about 10 a.m. today, they noticed that she was complaining of some left upper to mid abdominal pain. She seemed to note this on and off during the day but also at times said she was pain free. The patient 's family states that she will often say nothing is bothering her even though they feel that something might be. Regardless by this afternoon and early evening, she was noted to be whimpering and holding her side and family encouraged her to come to the ED. She acquiesced, which is unusual for her, and they took this is another sign that perhaps something was wrong. At baseline, the patient knows who her family members are but is generally otherwise confused with poor short-term memory. There was initial report of fever but per the family, her temperature was only 99. There has been no nausea or vomiting reported. The patient tends to be constipated. In the emergency room, Ms. Rojas is currently denying all pain. She has no pain with palpation. She has vitals that show no fever, she is not tachycardic , her blood pressure is stable, she is not tachypneic. Her labs show elevated LFTs with AST 948, ALT 439, alk phos 160. Her troponin was 0.06, but on repeat it was unchanged. Her lipase is 190. Her lactic acid is 2.3. The patient was given intravenous fluids. She had an abdomen and pelvis CT, which showed "periportal edema within the liver, nonspecific finding although may be associated with hepatitis, intra-abdominal wall hernia containing nondistended small bowel and large bowel." The patient went on to have a gallbladder ultrasound, which was read by the overnight radiologist to show no evidence of gallbladder wall thickening or gallstones, the common bile duct is 4 mm. PAST MEDICAL HISTORY: 1. Hypertension. 2. Insulin-dependent diabetes. 3. Hyperlipidemia. 4. Severe dementia. 5. Stage 3 CKD. 6. Asthma. 7. History of TIA. 8. History of macular degeneration. 9. History of influenza February 2017 followed by significant rash, followed by Dr. Faulkner. The patient's family reports she was on methotrexate for this and it is finally resolving. MEDICATIONS: 1. Atorvastatin 20 mg p.o. at bedtime. 2. Lispro insulin 6 to 8 units subcutaneously t.i.d. p.r.n. with meals. 3. Aspirin 81 to 162 mg p.o. daily p.r.n. 4. Calcium with polycarbophil, she takes 4 tabs at lunch and 3 tabs at dinner. 5. Furosemide 20 mg p.o. q.a.m. 6. Levemir insulin currently at 16 units subcutaneously at bedtime. 7. Multivitamin with mineral 1 tab p.o. daily. 8. Valsartan 40 mg p.o. daily. ALLERGIES: No known drug allergies. FAMILY HISTORY: Reviewed and noncontributory as the patient's parents in World War II. SOCIAL HISTORY: The patient quit smoking when she was 35. No report of alcohol or drug use. She lives with the family. Her daughter and her son are the healthcare proxy. REVIEW OF SYSTEMS: Unobtainable today due to the patient's dementia. PHYSICAL EXAMINATION GENERAL: Ms. Rojas is lying in bed. She is in no acute distress. VITAL SIGNS: Temperature 98, pulse rate 79, respiratory rate 17, O2 saturation 98% on room air, and blood pressure 115/57. LUNGS: Clear to auscultation bilaterally with no accessory muscle use and good aeration. HEART: S1, S2. No murmur, rub or gallop and regular. ABDOMEN: Soft, nontender with bowel sounds positive x4. EXTREMITIES: No cyanosis or edema. NEUROLOGIC: She is alert. She is oriented to herself. She knows her family. She is unable to tell me where she is. She denies all pain. She moves all extremities equally. There is no facial asymmetry or focal weakness. Extraocular movements are intact. SKIN: Intact. DIAGNOSTIC STUDIES/LAB DATA: Sodium 130, potassium 4.6, chloride 99, serum bicarbonate 22, BUN 44, creatinine 1.38, glucose 273, lactic acid 2.3. AST 948 , ALT 439, alk phos 160. Troponin 0.06, on repeat is the same. CRP 3.45, lipase 190. WBC 5.8, hemoglobin 10.6, hematocrit 30, platelet count 217. The abdomen and pelvis CT as is read above. The chest x-ray shows "small left upper lobe infiltrate," recommend PA and lateral chest films for further evaluation when the patient is clinically able. ASSESSMENT: Ms. Rojas is an 86-year-old female with past medical history of severe dementia, insulin-dependent diabetes, hypertension, stage 3 chronic kidney disease, who presents today to the hospital with concern for left upper to mid abdominal pain, found to have elevated LFTs of unclear significance with periportal edema. Our plans are for observation in the hospital for the followin. Abdominal pain: The patient does have elevated LFTs and she has finding of edema on the liver. The cause of these findings is unclear. I do note that the patient is on a statin, which could contribute to this and plan to hold. The patient lives with her family with very limited exposure to any possibility for hepatitis, but we will check acute hepatitis panel. The patient's gallbladder ultrasound shows no evidence of gallstones or dilated common bile duct. For now, plan to continue hydration and to repeat her labs in the morning with further workup based on clinical course. The patient's family would like to pursue limited medical interventions and are not interested in surgery or other invasive studies at this time pending further discussion. 2. Question UTI. Patient is a poor historian and has 3+ leuk esterase in her urine, though no bacteria. Plan for ceftriaxone pending review of urine culture. 3. Type 2 diabetes: Plan for blood glucoses q.a.c. with lispro sliding scale. She will have her home Levemir but at 10 units for bedtime as I anticipate her oral intake to be decreased and planning for clear liquid diet now. 4. Hypertension: Continue furosemide and valsartan. 5. Chronic kidney disease is at baseline. 6. Anemia, chronic, at baseline. 7. Hyponatremia, new, only mild. Plan to repeat all labs in the a.m. after hydration. 8. Code status is DNR/DNI. MOLST form was completed with the family. TIME SPENT: Approximately 60 minutes were spent on the admission of this patient, more than half of the time was spent with the patient and her family at the bedside reviewing the events leading up to and during thus far in the ED , performing the physical examination, and reviewing the plan of care. JESSY OGDEN NP [id number]/CPS #: [id number] OSIEL
[2017-09-09 05:23] LABS: ABS Basophils 0 10^3/ul (0-0.2); ABS Eosinophils 0.3 10^3/ul (0-0.6); ABS Lymphocytes 0.5 10^3/ul (1.0-4.8); ABS Monocytes 0.3 10^3/ul (0-0.8); ABS Neutrophils 6.4 10^3/ul (1.5-7.7); ABS Nucleated RBC 0 10^3/ul; Eosinophil % 4.3 % (0-6); Hematocrit 32 % (35-47); Hemoglobin 10.9 g/dl (12.0-16.0); Lymphocyte % 6.4 % (25-47); Mean Corpuscular HGB Conc 34 g/dl (31-36); Mean Corpuscular Hemoglobin 32 pg (27-31); Mean Corpuscular Volume 92 fL (80-97); Mean Platelet Volume 7.6 um3 (7.4-10.4); Nucleated Red Blood Cells % 0; Platelet Count 233 10^3/ul (150-450); Red Blood Count 3.45 10^6/ul (4.00-5.40); Red Cell Distribution Width 13 % (10.5-15); White Blood Count 7.5 10^3/ul (3.5-10.8)
[2017-09-09 05:41] LABS: EGFR Non-African American 39.7 (>60)
[2017-09-09] MEDS: Heparin VIAL(*) 5000 UNITS/ML VIAL (FIVE THOUSAND) SUBCUT SCH ×3 (06:26→21:17)
[2017-09-09] MEDS: cefTRIAXone(*) 1 GM in NS 0.9% 50 ML* 50 ML IVPB SCH (07:40)
[2017-09-09] MEDS: Furosemide TAB* 20 MG PO SCH (08:36)
[2017-09-09] MEDS: Multivitamins/Minerals TAB PO SCH (08:36)
[2017-09-09] MEDS: Insulin LISPRO* 1 UNITS UNIT SUBCUT SCH ×3 (08:36→17:34)
[2017-09-09] MEDS: Valsartan TAB* 40 MG PO SCH (08:36)
--- NOTE | 2017-09-09 08:45 | RAD ---
HISTORY: Epigastric pain COMPARISONS: CT abdomen pelvis September 08, 2017 TECHNIQUE: Multiple transverse and longitudinal ultrasound images were obtained of the right upper quadrant. FINDINGS: LIVER: The liver is normal in dimensions and echogenicity. Normal hepatic and portal venous blood flow is duplicated with color flow imaging. There is no gross intrahepatic biliary duct dilatation. GALLBLADDER AND EXTRAHEPATIC BILIARY DUCT: The gallbladder is normal in appearance without intraluminal stones or other soft tissue masses. There is no pericholecystic fluid or gallbladder wall thickening. The common bile duct measures a maximum diameter of 4 mm. PANCREAS: The portions of the pancreas not obscured by bowel gas are normal in appearance. RIGHT KIDNEY: The right kidney is normal in size, morphology and echogenicity. AORTA AND IVC: The visualized portions are normal in appearance and not pathologically dilated. IMPRESSION: Normal ultrasound of the right upper quadrant.
--- NOTE | 2017-09-09 09:30 | RAD ---
INDICATION: Chest pain COMPARISON: Chest x-ray September 08, 2017 TECHNIQUE: PA and lateral views of the chest were obtained. FINDINGS: The heart and mediastinum are normal in size and contour. There is coarse calcification overlying the arch of the aorta. Coarse calcification is noted at the mitral valve. The lungs are grossly clear. There is no evidence of large pleural effusion. Visualized bones are normal for the patient's age. There is no radiographic evidence of free air beneath the diaphragm IMPRESSION: No radiographic evidence of acute cardiopulmonary disease.
[2017-09-09] MEDS ORDERED: Morphine TAB Extended Release (*) 15 MG TAB.ER PO SCH (12:00)
[2017-09-09] MEDS: Calcium Polycarbophil TAB* 625 MG PO SCH (12:06)
[2017-09-09] MEDS: NS 0.9% 1000 ML* 1,000 ML IV SCH (12:06)
--- NOTE | 2017-09-09 17:53 | PN ---
Subjective Date of Service: 09/09/17 Interval History: Pt seen and examined. Meds and labs reviewed. Pt feels better and mentions she is not on O2 at home. ROS: Complains of abd pain and slight tendernessDenied COLNEY/dizziness, F/C, N/V, CP, SOB, increased cough, sputum production, abd pain, diarrhea, constipation, dysuria, myalgias, arthralgias, throat pain, and new skin lesions. The rest of the 14 point ROS are unremarkable. PHYSICAL EXAM: GEN APPEARANCE: Awake, not in acute distress HEENT: NC/AT, PERRLA, moist oral mucosa, (-) throat erythema NECK: Soft, supple, (-) cervical LAD, (-)JVD HEART: S1S2 WNL, RRR, No MRG CHEST: Bibasal crackles, GAE, No W/R/R ABD: Soft, ND/Slight RUQ tenderness, NABS 4x Q EXT: No C/C/E SKIN: Warm to touch PSYCH: No active psychosis, hallucinations, depression, SI/HI Objective Active Medications: Acetaminophen (Tylenol Tab*) 650 mg PO Q6H PRN PRN Reason: pain/fever Aspirin (Aspirin Ec Tab*) 81 mg PO DAILY PRN PRN Reason: PAIN Calcium Polycarbophil (Fibercon Tab*) 1,875 mg PO 1200 [facility] Last Admin: 09/09/17 12:06 Dose: 1,875 mg Calcium Polycarbophil (Fibercon Tab*) 1,875 mg PO QPM [facility] Last Admin: 09/09/17 17:43 Dose: 1,875 mg Dextrose (D50w Syringe 50 Ml*) 12.5 gm IV PUSH .FOR FS < 60 - SS PRN PRN Reason: FS < 60 Furosemide (Lasix Tab*) 20 mg PO QAM [facility] Last Admin: 09/09/17 08:36 Dose: 20 mg Heparin Sodium (Porcine) (Heparin Vial(*)) 5,000 units SUBCUT Q12HR [facility] Sodium Chloride (Ns 0.9% 1000 Ml*) 1,000 mls @ 100 mls/hr IV PER RATE [facility] Last Admin: 09/09/17 12:06 Dose: 100 mls/hr Ceftriaxone Sodium 1 gm/ (Sodium Chloride) 50 mls @ 200 mls/hr IVPB Q24H [facility] Last Admin: 09/09/17 07:40 Dose: 200 mls/hr Insulin Detemir (Levemir (Nf)) 12 unit SUBCUT BEDTIME [facility] Insulin Human Lispro (Humalog*) 0 units SUBCUT AC [facility]; Protocol Last Admin: 09/09/17 17:34 Dose: 2 units Morphine Sulfate (Ms Contin(*)) 15 mg PO Q12H [facility] Last Admin: 09/09/17 14:02 Dose: 15 mg Multivitamins/Minerals (Theragran/Minerals Tab*) 1 tab PO DAILY [facility] Last Admin: 09/09/17 08:36 Dose: 1 tab Ondansetron HCl (Zofran Inj*) 4 mg IV Q6H PRN PRN Reason: NAUSEA Valsartan (Diovan Tab*) 40 mg PO DAILY [facility] Last Admin: 09/09/17 08:36 Dose: 40 mg Vital Signs - 8 hr 09/09/17 09/09/17 09/09/17 11:25 14:02 16:12 Temperature 98.4 F Pulse Rate 74 Respiratory 20 20 22 Rate Blood Pressure 142/53 (mmHg) O2 Sat by Pulse 100 Oximetry Oxygen Devices in Use Now: None Result Diagrams: 09/09/17 05:07 09/09/17 05:07 Additional Lab and Data: Lab Results 09/08/17 Range/Units 18:55 WBC 5.8 (3.5-10.8) 10^3/ul RBC 3.31 L (4.00-5.40) 10^6/ul Hgb 10.6 L (12.0-16.0) g/dl Hct 30 L (35-47) % MCV 92 (80-97) fL MCH 32 H (27-31) pg MCHC 35 (31-36) g/dl RDW 13 (10.5-15) % Plt Count 217 (150-450) 10^3/ul MPV 7.6 (7.4-10.4) um3 Neut % (Auto) 86.4 H (38-83) % Lymph % (Auto) 10.0 L (25-47) % Morrow % (Auto) 1.7 (0-7) % Eos % (Auto) 1.6 (0-6) % Baso % (Auto) 0.3 (0-2) % Absolute Neuts (auto) 5.0 (1.5-7.7) 10^3/ul Absolute Lymphs (auto) 0.6 L (1.0-4.8) 10^3/ul Absolute Monos (auto) 0.1 (0-0.8) 10^3/ul Absolute Eos (auto) 0.1 (0-0.6) 10^3/ul Absolute Basos (auto) 0 (0-0.2) 10^3/ul Absolute Nucleated RBC 0 10^3/ul Nucleated RBC % 0 Assess/Plan/Problems-Billing Assessment: - Patient Problems (1) Hepatitis Current Visit: Yes Status: Acute Comment: -Likely cause of liver edema seen on imaging -Discussed possibilities with daughter and mentioned that her brother who used to live with her was diagnosed with HCV cirrhosis with metastatic primary liver CA and has a few years ago -Possibly may also be due to recent Methotrexate use---last use however was June -Statins on hold -Will initiate screen with hepatitis as ordered -Will place on gentle IV hydration -Continue to follow LFTs (2) Abdominal pain Current Visit: Yes Status: Acute Code(s): R10.9 - UNSPECIFIED ABDOMINAL PAIN SNOMED Code(s): 46607939 Comment: -As above -Will start pt on low dose Morphine SR with appropriate holding orders (3) Elevated troponin Current Visit: Yes Status: Acute Code(s): R74.8 - ABNORMAL LEVELS OF OTHER SERUM ENZYMES SNOMED Code(s): 050453535 Comment: -Likely due to elevated transaminases -Will continue to trend troponins and MB fraction as ordered -Pt does not complain of CP or SOB (4) UTI (urinary tract infection) Current Visit: Yes Status: Acute Comment: -Continue Rocephin -Continue to follow cultures (5) Diabetes 1.5, managed as type 2 Current Visit: Yes Status: Acute Code(s): E10.9 - TYPE 1 DIABETES MELLITUS WITHOUT COMPLICATIONS SNOMED Code(s): 611290956 Comment: -Will Increase Insulin Detemir to 12 units SQ QHS -Continue Insulin SS and monitor FS (6) HTN (hypertension) Current Visit: Yes Status: Acute Code(s): I10 - ESSENTIAL (PRIMARY) HYPERTENSION SNOMED Code(s): 03601998 Comment: -Continue Valsartan (7) CKD (chronic kidney disease) Current Visit: Yes Status: Acute Code(s): N18.9 - CHRONIC KIDNEY DISEASE, UNSPECIFIED SNOMED Code(s): 573944698 Comment: -Stable -As above (8) DVT prophylaxis Current Visit: Yes Status: Acute Code(s): WOS6190 - SNOMED Code(s): 090724334 Comment: -Will decrease Heparin to q12h SQ given advance age Status and Disposition: -Will continue to monitor LFTs
[2017-09-09] MEDS ORDERED: Calcium Polycarbophil TAB* 625 MG PO SCH (18:00)
[2017-09-09] MEDS ORDERED: Insulin Detemir (NF) 100 UNIT/ML 10 ML VIAL SUBCUT SCH (21:00)
[2017-09-09] MEDS ORDERED: Insulin GLARGINE(*) 1 UNITS UNIT SUBCUT SCH (21:00)
[2017-09-10] MEDS: NS 0.9% 1000 ML* 1,000 ML IV SCH (01:39)
[2017-09-10] MEDS: Morphine TAB Extended Release (*) 15 MG TAB.ER PO SCH ×2 (01:39→12:56)
[2017-09-10] MEDS: cefTRIAXone(*) 1 GM in NS 0.9% 50 ML* 50 ML IVPB SCH (05:55)
[2017-09-10] MEDS: Multivitamins/Minerals TAB PO SCH (07:52)
[2017-09-10] MEDS: Valsartan TAB* 40 MG PO SCH (07:52)
[2017-09-10] MEDS: Furosemide TAB* 20 MG PO SCH (07:52)
[2017-09-10] MEDS: Heparin VIAL(*) 5000 UNITS/ML VIAL (FIVE THOUSAND) SUBCUT SCH (07:52)
[2017-09-10] MEDS: Insulin LISPRO* 1 UNITS UNIT SUBCUT SCH ×2 (07:52→12:56)
[2017-09-10 09:45] LABS: ABS Basophils 0 10^3/ul (0-0.2); ABS Eosinophils 0.6 10^3/ul (0-0.6); ABS Lymphocytes 1.3 10^3/ul (1.0-4.8); ABS Monocytes 0.4 10^3/ul (0-0.8); ABS Neutrophils 5.2 10^3/ul (1.5-7.7); ABS Nucleated RBC 0 10^3/ul; Eosinophil % 8.4 % (0-6); Hematocrit 29 % (35-47); Lymphocyte % 17.2 % (25-47); Mean Corpuscular HGB Conc 35 g/dl (31-36); Mean Corpuscular Hemoglobin 32 pg (27-31); Mean Corpuscular Volume 92 fL (80-97); Mean Platelet Volume 8.5 um3 (7.4-10.4); Nucleated Red Blood Cells % 0; Platelet Count 229 10^3/ul (150-450); Red Blood Count 3.13 10^6/ul (4.00-5.40); Red Cell Distribution Width 13 % (10.5-15); White Blood Count 7.7 10^3/ul (3.5-10.8)
[2017-09-10 09:56] LABS: EGFR Non-African American 56.2 (>60)
[2017-09-10] MEDS: Calcium Polycarbophil TAB* 625 MG PO SCH (12:56)
[2017-09-10 13:24] VITALS: BP 150/51
--- NOTE | 2017-09-11 04:01 | DS ---
CC: Dr. Friend; Dr. John Maradiaga; Dr. Tc Carrera * DISCHARGE SUMMARY: DATE OF ADMISSION: 09/08/17 DATE OF DISCHARGE: 09/10/17 DISCHARGE DIAGNOSES: Are as follows: 1. 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 2. Abdominal pain, improved secondary to above. 3. Elevated troponins, likely due to elevated transaminases secondary to hepatitis, likely drug-induced liver injury. 4. Urinary tract infection. 5. Diabetes type 2. 6. Hypertension. 7. Chronic kidney disease. DISCHARGE MEDICATIONS: Are as follows: 1. Tylenol 650 mg p.o. q.6 p.r.n. 2. Aspirin 81 mg p.o. daily. 3. Calcium polycarbophil tablet 1875 mg p.o. b.i.d. 4. Doxazosin 1 mg p.o. nightly. 5. Lasix 20 mg p.o. q.a.m. 6. Insulin detemir 20 to 24 units subcu nightly. 7. Insulin lispro 6 to 8 units subcu t.i.d. q.a.c. 8. Morphine 15 mg p.o. b.i.d. 9. Multivitamins 1 tab p.o. daily. HPI/HOSPITAL COURSE: The patient is an 86-year-old lady with history of severe dementia, diabetes, and hypertension, who is a Qatari-[place]ian speaker and speaks very little Nepalese, accompanied by her daughter at bedside, who mentions that for the past 2 months she has been having increasing back pain, neck pain, and foot pain, and over the past 2 to 3 weeks, they have noticed that she has had decreased appetite when offered some of her favorite foods. At around 10 a.m., on 09/08/17, they noticed that she was complaining of some left upper to mid abdominal pain. She was then brought to the ED where she was found to have elevated LFTs and she was given some IV fluids, and abdominal and pelvic CT revealed periportal edema within the liver that is nonspecific finding that may be associated with hepatitis or intraabdominal wall hernia containing nondistended small bowel and large bowel. She was admitted and placed on IV fluids and her abdominal pain was then subsequently controlled. She has done well with her diet with no apparent nausea and/or vomiting especially the day of her discharge. During her evaluation, her daughter then mentioned that her brother was diagnosed with hepatitis C and given that [place] [facility], which is endemic with hepatitis C, she was ruled out for viral hepatitis with a viral screen composing of the following, hepatitis A, IgM antibody, HBS antigen, HBC IgM, and hep C antibody; all of which were found nonreactive. On further review of her history, she mentions that she was given methotrexate, which has ended in June and per her daughter at bedside mentioned that she has not felt the same since she was prescirbed this medication. On further review of her home medications, she was advised to hold statins at this time and valsartan given both can cause either hepatotoxicity and/or hepatitis. Hence she was placed on doxazosin prior to her discharge and will need to be titrated by her primary care physician, doxazosin has not been associated with hepatotoxicity and/or hepatitis on my review or at least does not have been seen probability of causing such in comparison to sartans. She was also found to have uncomplicated UTI and has received 3 days of antibiotic therapy. She will be discharged with improvement of her LFTs and her chief complaint. She was advised to follow up and/or call her PCP within 3 days post-discharge to call [facility] if her PCP cannot see her any sooner, and that both her and her PCP will need to agree that she needs to be seen sooner to call [facility] and to call my office regarding any questions, concerns or further clarifications regarding her discharge plans and/or prescriptions, and she was also made aware that she will need to discuss with her PCP for possible referral to GI and/or field nurse case manager in the future especially given the possibility of drug induced liver injury. She was advised to follow up with her PCP to discuss when her liver function tests will need to be rechecked. I advised a time frame of 6 weeks to 2 months. She was advised to stop her valsartan and statins as previously discussed and her antihypertensives will need to be adjusted by her PCP especially given that she is just being started on doxazosin tonight. She was advised to take her medications as prescribed. PHYSICAL EXAMINATION: Reveals the most recent vital signs of records with blood pressure of 150/51, heart rate of 77 beats per minute, respiratory rate of 20 per minute, 98.7 degrees Fahrenheit. General Appearance: The patient is awake, alert, and oriented x3, not in acute distress. HEENT: Normocephalic, atraumatic. PERRLA. Extraocular muscles intact. Negative for icterus. Moist oral mucosa. Negative throat erythema. Neck is soft, supple with no cervical lymphadenopathy, no JVD. Heart: S1, S2 within normal limits. Regular rate and rhythm. No murmurs, rubs or gallops. Chest: Clear to auscultation bilaterally. Good air entry. No wheezes, rales or rhonchi. Abdomen: Soft, nondistended, nontender. Normoactive bowel sounds x4 quadrants. Extremities: No cyanosis, clubbing or edema. Psychiatric: No active psychosis, depression, suicidal nor homicidal ideations. Skin is warm to touch. REVIEW OF SYSTEMS: On review of systems, the patient denied any recent headaches, dizziness, fevers, chills, nausea, vomiting, chest pain, shortness of breath, increased cough, and/or sputum production, abdominal pain, diarrhea, constipation, pain, and/or increased frequency in urination, myalgias, arthralgias, throat pain or new skin lesions. The rest of the 14-point review of systems are otherwise unremarkable. TIME SPENT: The total time spent evaluating the patient, reviewing pertinent data and appropriate documentation is greater than 30 minutes. [id number]/[facility] #: [id number] MTDD
== END 2017-09-10 13:36 | disposition home or self-care (01) ==
LOC: ED 17:56 → MEDTELE 22:53
PROVIDERS: ADMIT Hospitalist; ATTEND Student in an Organized Health Care Education/Training Program
DX: K75.9 Inflammatory liver disease, unspecified (principal); R10.9 Unspecified abdominal pain; R79.89 Other specified abnormal findings of blood chemistry; N39.0 Urinary tract infection, site not specified; I10 Essential (primary) hypertension; N18.9 Chronic kidney disease, unspecified; Z79.82 Long term (current) use of aspirin; E10.9 Type 1 diabetes mellitus without complications
CPT/HCPCS: 36415; 71045; 71046; 74177; 76705; 80053; 80074; 81003; 81015; 82550; 82553; 83605; 83690; 84484; 85025; 86140; 86709; 86803; 87086; 87340; 93005; 99284; A9270-GY; G0378; J0696; J1644; J2543; Q9967

== ENCOUNTER 2017-11-10 12:25 | Emergency (ER) | payer MEDICARE ==
--- OUTSIDE RECORDS SUMMARY | 2017-11-10 13:19 | XMS REPORT ---
:1930 External Reference #:[id number] Author Organization [employer] Address [address] [facility] [place] [address] Phone [phone] Care Team Providers Name Role Phone Tc Carrera MD Primary Care Physician Unavailable Payers Type Date Identification Numbers Payment Provider Subscriber Health Maintenance Policy Number: Medicare Blue Ppo [facility] [place] [id number] Group Number: [id number] [address] [address] PayID: [id number] DANNA Mishra [id number] Advance Directives Type Date Description Status Comment [...] JaclynFACP Onset: 03/30/2016 Uric acid urolithiasis Tc Carrera Active АНДРЕЙ AnayaP Onset: 08/26/2016 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 on M.Milvia,FACP electrocardiogram Onset: 09/07/2016 Carotid artery stenosis Tc Carrera Active АНДРЕЙ AnayaP Note: LT 50-69% Onset: 09/09/2016 Transient cerebral ischemia Yudith Cruz MD Active Onset: 09/09/2016 Unspecified dementia 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 Quit in Recreational Drug Use Denies Drug Use Daily Caffeine Decaf Tea 5-6 cups/day General Hx Text Allergies, Adverse Reactions, Alerts Date Description Reaction Status Severity Comments 05/17/2017 Tamiflu active possible overall rash 09/13/2017 Atorvastatin active ?LFT abnormalities 09/13/2017 Morphine active confusion 03/04/2016 NKDA inactive Medications Medication Date Status Form Strength Qnty SIG Indications Ordering Provider Doxazosin 10/27 Active Tablets 2mg 90tab take one Tc Mesylate s tablet by Milvia Carrera, mouth once M.D.,FACP daily Diclofenac 10/04 Active Gel 1% 100gm Apply 4 grams M51.16 Sodium to back every Milvia Carrera, 6 hours as M.DYenni,FACP needed for pain. Tramadol HCL 09/13 Active Tablets 50mg 30tab 3 times a day s as needed Milvia Carrera M.D.,FACP Ferrex 150 09/13 Active Capsules 150mg 30cap 1 by mouth s daily Milvia Carrera M.D.,FACP Sarna 05/17 Active Lotion 0.5-0.5% 100g topical as needed for Milvia Carrera pruritis Rosanna.Milvia,FACP Blood Glucose 11/30 Active Kit W/Device 1unit check blood Tc Monitoring s sugar 4 times Milvia Carrera System daily and prn M.D.,FACP Blood Glucose 11/30 Active Strips 150un check blood Tc Test its sugar 4 times Milvia Carrera, daily and as M.D.,FACP needed Lancets 11/30 Active Misc 28G 150un check blood its sugar 4 times Milvia Carrera, daily and prn M.D.,FACP Aspirin Ec 08/26 Active Tablets 81mg 90tab 1-[address] brenton Carrera M.D.,FACP BD Insulin 03/11 Active Misc 31G X 400un use 4 syringes Tc Syringe /07/12" 1 its daily and as Milvia Carrera, Ultrafine/U-100 ML needed M.DYenni,[facility] /1ML/31G X 07/12" Centrum Silver Active Tablets 1 by mouth Unknown every day Fiber Active Capsules 3 at noon and 3 in evening Triamcinolone Active Cream 0.1% apply thin Unknown Acetonide film twice daily Fluocinonide Active Solution 0.05% topical 2x a day as needed Furosemide Active Tablets 20mg 90tab Take One [place] s Tablet By Pachika Mouth Every , M.D. Morning Doxazosin 09/13 Hx Tablets 1mg 90tab 1 by mouth Tc Mesylate /2017 s every day Radha Denise M.D.,[facility] 10/27 Doxycycline 07/25 Hx Tablets 100mg 10tab 1 by mouth Tc Hyclate /2017 s twice a day Radha Denise M.D.,[facility] 07/30 Cefuroxime 07/22 Hx Tablets 250mg 14tab 1 by mouth Tc Axetil /2017 s twice a day Milvia Carrera, - for 7 d MJeramie,[facility] 07/25 Ferrex 150 07/02 Hx Capsules 150mg 30cap 1 by mouth Tc s daily Radha Denise M.D.,[facility] 09/10 Prednisone 03/29 Hx Tablets 10mg 18tab 3 tabs every s day for 4 D. Debi, - days, then MYenniDYenni,[facility] 04/05 reduce by tab every 2 days until finished Betamethasone 03/21 Hx Lotion 0.05% 60ml topical qd prn Tc Dipropionate /2017 Radha Denise M.D.,[facility] 04/21 Ventolin HFA 03/17 Hx Aerosol 108(90Bas 1unit 2 puffs by Tc /2017 e) s mouth four D. Debi, - mcg/Act times a day as MJeramie,[facility] 09/10 needed Azithromycin 03/17 Hx Tablets 250mg 6tabs 2 every day for 1 day, Milvia Carrera, - then 1 every M.D.,[facility] Benzonatate 03/17 Hx Capsules 100mg 30cap one by mouth s three times Milvia Carrera, - daily as M.D.,[facility] 04/01 needed for cough Valsartan 09/12 Hx Tablets 40mg 90tab Take One [place] s Tablet By Pachikara - Mouth Every , M.D. 09/10 Day Valacyclovir 08/10 Hx Tablets 1gm 21tab by mouth every HCL s 8 hours for 1 Milvia Carerra, - week M.D.,[facility] 08/17 Atorvastatin 03/30 Hx Tablets 40mg 90tab Take One [place] Calcium s Tablet By Pachikara - Mouth AT , M.D. 09/10 Bedtime Atorvastatin 03/11 Hx Tablets 80mg 90tab 1 by mouth Buddy Calcium s every day Bandar, - [employer] 03/30 Cyanocobalamin 03/04 Hx Solution 1000mcg/M 6ml 1 milliliters L intramuscular Milvia Carrera, - [id number] M.DYenni,[facility] 03/30 Allopurinol Hx Tablets 100mg 90tab 1 by mouth Tc / s every day Radha Denise M.D.,[facility] 04/05 Levemir Hx Solution 100Unit/M 30ml 18-20 units at Tc /0000 L bedtime Radha Denise M.D.,[facility] 09/13 Valsartan Hx Tablets 80mg 90tab 1 by mouth in Tc /0000 s at night Radha Denise M.D.,[facility] 09/12 Humalog Hx Solution 100Unit/M 30ml 4-6 units per Tc /0000 L sliding scale Milvia Carrera, - three times a M.D.,[facility] 09/13 day with each meal and as needed Doxycycline Hx Capsules 50mg take one Unknown Hyclate capsule twice - daily 05/17 Methotrexate 00 Hx Tablets 2.5mg 5 tabs by Tc /Radha Chang M.D.,[facility] 07/22 Immunizations CPT Code Status Date Vaccine Reaction Lot # [id number] Given 02/15/2017 Pneumococcal Conjugate Vaccine 13 [id number] Valent For Intramuscular Use 03430 Given 11/09/2016 Influenza Virus Vaccine, Quadrivalent, no reaction [id number] Split, Preservative Free Vital Signs Date Vital Result Comment 11/10/2017 Height 60.4 inches 5'0.40" Weight 136.00 lb Heart Rate 90 /min BP Systolic 124 mmHg BP Diastolic 54 mmHg O2 % BldC Oximetry 100 % BMI (Body Mass Index) 26.2 kg/m2 10/04/2017 Height 60.4 inches 5'0.40" Weight 134.00 lb Heart Rate 80 /min BP Systolic 140 mmHg BP Diastolic 60 mmHg O2 % BldC Oximetry 93 % BMI (Body Mass Index) 25.8 kg/m2 09/13/2017 Heart Rate 69 /min BP Systolic Sitting 126 mmHg BP Diastolic Sitting 56 mmHg Body Temperature 98.0 F O2 % BldC Oximetry 96 % 08/21/2017 Weight 146.00 lb Heart Rate 79 [...] Test Date Test Result H/L Range Note Lipid Profile (Trig/Chol/HDL) 09/20/2017 Triglycerides 97 mg/dL 1 Cholesterol 211 mg/dL 2 HDL Cholesterol 29.1 mg/dL 3 LDL Cholesterol 163 mg/dL 4 Laboratory test finding 09/20/2017 Hemoglobin A1c (Glyco 7.5 % High 4.0- 5.6 5 HGB) Comp Metabolic Panel 09/20/2017 Sodium 136 mmol/L 135-145 Potassium 4.9 mmol/L 3.5-5.0 Chloride 101 mmol/L 101-111 Co2 Carbon Dioxide 26 mmol/L 22-32 Anion Gap 9 mmol/L 2-11 Glucose 142 mg/dL High 70-100 Blood Urea Nitrogen 19 mg/dL 6-24 Creatinine 0.95 mg/dL 0.51-0.95 BUN/Creatinine Ratio 20.0 8-20 Calcium 9.2 mg/dL 8.6-10.3 Total Protein 6.5 g/dL 6.4-8.9 Albumin 3.3 g/dL 3.2-5.2 Globulin 3.2 g/dL 2-4 Albumin/Globulin Ratio 1.0 1-3 Total Bilirubin 0.50 mg/dL 0.2-1.0 Alkaline Phosphatase 84 U/L 34-104 Alt 26 U/L 7-52 Ast 17 U/L 13-39 Egfr Non- 55.5 >60 Egfr 67.2 >60 6 Iron & Iron Binding Capacity 09/20/2017 Iron 27 g/dL Low 50-212 Unsaturated Iron Binding 203 g/dL Total Iron Binding Capacity 230 g/dL Low 250-450 Transferrin 164 mg/dL Low 203-362 % Iron Saturation 12 % Low 15-55 CBC Auto Diff 09/20/2017 White Blood Count 5.3 10^3/uL 3.5-10.8 Red Blood Count 3.02 10^6/uL Low 4.00-5.40 Hemoglobin 9.5 g/dL Low 12.0-16.0 Hematocrit 27 % Low 35-47 Mean Corpuscular Volume 91 fL 80-97 Mean Corpuscular Hemoglobin 32 pg High 27-31 Mean Corpuscular HGB Conc 35 g/dL 31-36 Red Cell Distribution Width 13 % 10.5-15 Platelet Count 386 10^3/uL 150-450 Mean Platelet Volume 7.7 um3 7.4-10.4 Abs Neutrophils 3.1 10^3/uL 1.5-7.7 Abs Lymphocytes 1.0 10^3/uL 1.0-4.8 Abs Monocytes 0.4 10^3/uL 0-0.8 Abs Eosinophils 0.7 10^3/uL High 0-0.6 Abs Basophils 0 10^3/uL 0-0.2 Abs Nucleated RBC 0 10^3/uL Granulocyte % 58.4 % 38-83 Lymphocyte % 19.7 % Low 25-47 Monocyte % 7.6 % High 0-7 Eosinophil % 13.5 % High 0-6 Basophil % 0.8 % 0-2 Nucleated Red Blood Cells % 0.1 Laboratory test finding 09/08/2017 Troponin-I (TnI) 0.06 ng/mL High <0.04 7 CBC Auto Diff 09/08/2017 White Blood Count 5.8 10^3/uL 3.5-10.8 Red Blood Count 3.31 10^6/uL Low 4.00-5.40 Hemoglobin 10.6 g/dL Low 12.0-16.0 Hematocrit 30 % Low 35-47 Mean Corpuscular Volume 92 fL 80-97 Mean Corpuscular Hemoglobin 32 pg High 27-31 Mean Corpuscular HGB Conc 35 g/dL 31-36 Red Cell Distribution Width 13 % 10.5-15 Platelet Count 217 10^3/uL 150-450 Mean Platelet Volume 7.6 um3 7.4-10.4 Abs Neutrophils 5.0 10^3/uL 1.5-7.7 Abs Lymphocytes 0.6 10^3/uL Low 1.0-4.8 Abs Monocytes 0.1 10^3/uL 0-0.8 Abs Eosinophils 0.1 10^3/uL 0-0.6 Abs Basophils 0 10^3/uL 0-0.2 Abs Nucleated RBC 0 10^3/uL Granulocyte % 86.4 % High 38-83 Lymphocyte % 10.0 % Low 25-47 Monocyte % 1.7 % 0-7 Eosinophil % 1.6 % 0-6 Basophil % 0.3 % 0-2 Nucleated Red Blood Cells % 0 Laboratory test finding 09/08/2017 Lactic Acid 2.3 mmol/L High 0.5-2.0 8 Comp Metabolic Panel 09/08/2017 Sodium 130 mmol/L Low 135-145 Potassium 4.6 mmol/L 3.5-5.0 Chloride 99 mmol/L Low 101-111 Co2 Carbon Dioxide 22 mmol/L 22-32 Anion Gap 9 mmol/L 2-11 Glucose 273 mg/dL High 70-100 Blood Urea Nitrogen 44 mg/dL High 6-24 Creatinine 1.38 mg/dL High 0.51-0.95 BUN/Creatinine Ratio 31.9 High 8-20 Calcium 9.3 mg/dL 8.6-10.3 Total Protein 6.8 g/dL 6.4-8.9 Albumin 3.6 g/dL 3.2-5.2 Globulin 3.2 g/dL 2-4 Albumin/Globulin Ratio 1.1 1-3 Total Bilirubin 0.80 mg/dL 0.2-1.0 Alkaline Phosphatase 160 U/L High 34-104 Alt 439 U/L High 7-52 Ast 948 U/L High 13-39 Egfr Non- 36.1 >60 Egfr 43.7 >60 9 Laboratory test finding 09/08/2017 Troponin-I (TnI) 0.06 ng/mL High <0.04 10 Lipase 190 U/L High 11.0-82.0 C Reactive Protein 3.45 mg/L <8.01 Hepatitis Acute Panel 09/08/2017 Hepatitis B Surface Nonreactive Nonreactive Antigen Hepatitis B Core IgM Nonreactive Nonreactive Hepatitis A AB IgM Nonreactive Nonreactive Hepatitis C Antibody Nonreactive Nonreactive Laboratory test finding 08/21/2017 Hemoglobin A1c 7.8 High 5-7 Urinalysis Profile 08/12/2017 Urine Color Straw Urine Appearance Clear Urine Specific [place] 1.012 1.010-1.030 Urine pH 7.0 5-9 Urine Urobilinogen Negative Negative Urine Ketones Negative Negative Urine Protein 1+(30 mg/dL) Negative Urine Leukocytes Trace Negative Urine Blood Negative Negative Urine Nitrite Negative Negative Urine Bilirubin Negative Negative Urine Glucose Negative Negative Urine White Blood Cell Trace(0-5/hpf) Absent Urine Red Blood Cell Absent Absent Urine Bacteria Absent Absent Urine Culture And 08/12/2017 Urine Culture SEE RESULT BELOW 11 Sensitivities Comp Metabolic Panel 08/12/2017 Sodium 139 mmol/L [...] Egfr Non- 43.2 >60 Egfr 55.6 >60 12 CBC Auto Diff 08/12/2017 White Blood Count [...] Red Blood Cells % 0 Urinalysis Profile 07/21/2017 Urine Color Yellow Urine Appearance Cloudy Urine Specific [place] 1.011 1.010-1.030 Urine pH 5.0 5-9 Urine Urobilinogen Negative Negative Urine Ketones Negative Negative Urine Protein Negative Negative Urine Leukocytes 3+ Negative Urine Blood 3+ Negative * * Negative 13 Urine Nitrite Negative Negative Urine Bilirubin Negative Negative Urine Glucose Negative Negative Urine White Blood Cell 3+(>20/hpf) Absent Urine Red Blood Cell 3+(>10/hpf) Absent Urine Bacteria 1+ Absent Urine Hyaline Casts Present Absent Urine Culture And 07/21/2017 Urine Culture SEE RESULT BELOW 14 Sensitivities Occult Blood,Stool (3 07/05/2017 Occult Blood - neg x2 pos x1 Spec) Stool Retic Count 06/29/2017 Retic Count 0.9 % 0.5-1.5 Corrected Retic Count 0.6 % 0.5-1.5 Maturation Factor Retic 2.0 Retic Index 0.30 Mean Retic Volume 126.6 Immature Retic Fraction 0.47 RBC Retic Count 2.93 10^6/uL Low 4.6-6.2 Hematocrit for Retic CNT 28 % Low 35-47 Laboratory test finding 06/29/2017 Vitamin B12 899 pg/mL 180-914 15 LDH 173 U/L 140-271 16 Iron & Iron Binding Capacity 06/29/2017 Iron 42 g/dL Low 50-212 Unsaturated Iron Binding 269 g/dL Total Iron Binding Capacity 311 g/dL 250-450 Transferrin 222 mg/dL 203-362 % Iron Saturation 14 % Low 15-55 Laboratory test finding 06/29/2017 Ferritin 94.6 ng/mL 11-307 17 Protein Electrophoresis 06/29/2017 Total Protein(Pep) 6.7 g/dL 6.3 - 7.9 Albumin 3.1 g/dL 3.4-4.7 Alpha-1 Globulin 0.3 g/dL 0.1-0.3 Alpha-2 Globulin 1.1 g/dL 0.6-1.0 Beta Globulin 1.0 g/dL 0.7-1.2 Gamma Globulin 1.3 g/dL 0.6-1.6 Albumin/Globulin Ratio 0.87 Impression See Comment 18 Laboratory test finding 05/17/2017 Hemoglobin A1c 7.9 High 5-7 Urine Microalbumin Random 04/26/2017 Ur Microalbumin (mg/L) 44.3 mg/L Urine Creatinine 38.99 mg/dL Urine Microalbumin/Creatinine 113.6 ug/mg High <31 Urinalysis Profile 04/26/2017 Urine Color Straw Urine Appearance Clear Urine Specific [place] 1.008 Low 1.010-1.030 Urine pH 6.0 5-9 [...] And 04/26/2017 Urine Culture SEE RESULT BELOW 19 Sensitivities Basic Metabolic Panel 04/26/2017 Sodium 132 mmol/L Low 133-145 Potassium 5.4 mmol/L High 3.5-5.0 Chloride 101 mmol/L 101-111 Co2 Carbon Dioxide 25 mmol/L 22-32 Anion Gap 6 mmol/L 2-11 Glucose 168 mg/dL High 70-100 Blood Urea Nitrogen 35 mg/dL High 6-24 Creatinine 1.17 mg/dL High 0.51-0.95 BUN/Creatinine Ratio 29.9 High 8-20 Calcium 9.2 mg/dL 8.6-10.3 Egfr Non- 43.7 >60 Egfr 56.1 >60 20 Laboratory test finding 04/04/2017 Point of Care Glucose 258 mg/dL High 70 -100 21 Comp Metabolic Panel 04/04/2017 Sodium 133 mmol/L [...] Egfr Non- 40.8 >60 Egfr 52.5 >60 22 Potassium 5.6 mmol/L High 3.5-5.0 Anion Gap 5 mmol/L 2-11 CBC Auto Diff 04/04/2017 White Blood Count [...] 0-2 Nucleated Red Blood Cells % 0 Urine Culture And Sensitivities 04/04/2017 Urine Culture SEE RESULT BELOW 23 Urinalysis Profile 04/04/2017 Urine Color Straw Urine Appearance Clear Urine Specific [place] 1.008 Low 1.010-1.030 Urine pH 6.0 5-9 Urine Urobilinogen Negative Negative Urine Ketones Negative Negative Urine Protein Negative Negative Urine Leukocytes 2+ Negative Urine Blood 1+ Negative Urine Nitrite Negative Negative Urine Bilirubin Negative Negative Urine Glucose 1+(50 mg/dL) Negative Urine White Blood Cell Trace(0-5/hpf) Absent Urine Red Blood Cell Trace(0-2/hpf) Absent Urine Bacteria Absent Absent Laboratory test 03/21/2017 Rapid Influenza A B SEE RESULT BELOW 24 finding Antigen Rapid Influenza A & B 03/21/2017 Influenza A NEGATIVE Negative 25 Molecular Molecular Influenza B Molecular POSITIVE Negative Laboratory test 03/21/2017 B-Type Natriuretic 212 pg/mL High 26 finding Peptide BNP Laboratory test 03/21/2017 Blood Culture SEE RESULT BELOW 27 finding CKMB 03/21/2017 CKMB ng/mL 2.2 ng/mL 0.6-6.3 Laboratory test 03/21/2017 Creatine Kinase(CK) 169 U/L 10-223 finding C Reactive Protein 11.15 mg/L High < 5.00 28 Troponin-I (TnI) 0.07 ng/mL High <0.04 29 Comp Metabolic Panel 03/21/2017 Sodium 132 mmol/L [...] Egfr Non- 47.4 >60 Egfr 60.9 >60 30 Potassium 4.9 mmol/L 3.5-5.0 Anion Gap 9 mmol/L 2-11 Ast 31 U/L 13-39 Laboratory test finding 03/21/2017 Lactic Acid 0.9 mmol/L 0.5-2.0 31 CBC Auto Diff 03/21/2017 White Blood Count [...] Color Yellow Urine Appearance Clear Urine Specific [place] 1.006 Low 1.010-1.030 Urine pH 5.0 5-9 [...] finding 02/15/2017 Hemoglobin A1c 7.5 High 5-7 CBC Auto Diff 01/11/2017 White Blood Count [...] Blood Cells % 0.1 Basic Metabolic Panel 01/11/2017 Sodium 133 mmol/L 133-145 Potassium 5.8 mmol/L High 3.5-5.0 Chloride 101 mmol/L 101-111 Co2 Carbon Dioxide 26 mmol/L 22-32 Anion Gap 6 mmol/L 2-11 Glucose 166 mg/dL High 70-100 Blood Urea Nitrogen 49 mg/dL High 6-24 Creatinine 1.38 mg/dL High 0.51-0.95 BUN/Creatinine Ratio 35.5 High 8-20 Calcium 9.9 mg/dL 8.6-10.3 Egfr Non- 36.1 >60 Egfr 46.4 >60 32 Laboratory test finding 11/09/2016 Hemoglobin A1c 7.8 [...] finding 08/24/2016 Lactic Acid 1.2 mmol/L 0.5-2.0 33 Comp Metabolic Panel 08/24/2016 Sodium 135 mmol/L [...] Egfr Non- 34.7 >60 Egfr 44.6 >60 34 Laboratory test finding 08/24/2016 Magnesium 2.1 mg/dL 1.9-2.7 Troponin-I (TnI) 0.05 ng/mL High <0.04 35 Basic Metabolic Panel 08/23/2016 Sodium 134 mmol/L 133-145 Potassium 5.5 mmol/L High 3.5-5.0 Chloride 103 mmol/L 101-111 Co2 Carbon Dioxide 26 mmol/L 22-32 Anion Gap 5 mmol/L 2-11 Glucose 130 mg/dL High 70-100 Blood Urea Nitrogen 52 mg/dL High 6-24 Creatinine 1.37 mg/dL High 0.51-0.95 BUN/Creatinine Ratio 38.0 High 8-20 Calcium 9.7 mg/dL 8.6-10.3 Egfr Non- 36.5 >60 Egfr 46.9 >60 36 CBC Auto Diff 08/23/2016 White Blood Count [...] % 0 Ua Routine 08/10/2016 Ua Specific [place] 1.020 Ua PH 5 Ua Color pale yellow Ua Appera clear Ua WBC ++ Ua Protein neg Ua Glucose norm Ua Ketones neg Ua Bilirubin neg Ua Urobilinogen norm Ua Nitrite neg Ua Occult Blood about 250 Laboratory test finding 08/08/2016 Hemoglobin A1c (Glyco 7.2 % High Less than 6.0 37 HGB) Vitamin B12 1150 pg/mL High 180-914 38 Lipid Profile (Trig/Chol/HDL) 08/08/2016 Triglycerides 79 mg/dL 39 Cholesterol 153 mg/dL 40 HDL Cholesterol 39.9 mg/dL 41 LDL Cholesterol 97 mg/dL 42 Comp Metabolic Panel 08/08/2016 Sodium 138 mmol/L [...] Egfr Non- 39.4 >60 Egfr 50.7 >60 43 Lipid Profile (Trig/Chol/HDL) 03/09/2016 Triglycerides 79 mg/dL 44 Cholesterol 131 mg/dL 45 HDL Cholesterol 44.4 mg/dL 46 LDL Cholesterol 71 mg/dL 47 Comp Metabolic Panel 03/09/2016 Sodium 136 mmol/L [...] Egfr Non- 51.8 >60 Egfr 66.7 >60 48 Laboratory test 03/09/2016 Hemoglobin A1c 7.3 % High Less than 6.0 49 finding (Glyco HGB) Laboratory test 03/09/2016 Vitamin B12 1037 pg/mL High 180-914 50 finding TSH (Thyroid Stim Horm) 2.41 mcIU/mL 0.34-5.60 51 Uric Acid 5.3 mg/dL 2.3-6.6 52 CBC Auto Diff 03/09/2016 White Blood Count [...] 0-2 Nucleated Red Blood Cells % 0 Urine Microalbumin Random 03/09/2016 Urine Creatinine 57.99 mg/dL Ur Microalbumin (mg/L) 150.3 mg/L Urine Microalbumin/Creatinine 259.1 ug/mg High <31 1 Desirable: <150 Borderline High: 150-199 High: 200-499 Very High: >500 2 Desirable: <200 Borderline High: 200-239 High: >239 3 Low: <40 Desirable: 40-60 High: >60 4 Desirable: <100 Near Optimal: 100-129 Borderline High: 130-159 High: 160-189 Very High: >189 5 Therapeutic target for the treatment of diabetes mellitus patients is <7% HBA1C, and in selective patients <6.0%. Please refer to [place] [employer] diabetic care guidelines for further information. 6 Because ethnic data is not always [...] 5 Kidney failure <15 (or dialysis) 7 Result TnIDx:0.06 Called to [id number] at: 21:41:04 by:[id number] Read back by: [id number] Critical Result LACT:2.3 Called to [id number] at: 19:27:05 by:[id number] Read back by:[id number] [place] Severe Sepsis and Septic Shock Management Bundle Measure requires all lactic acids initially measuring >2.0 mmol/L be repeated. 9 Because ethnic data is not always readily [...] 15-29 5 Kidney failure <15 (or dialysis) 10 Result TnIDx:0.06 Called to [id number] at: 19:33:39 by:[id number] Read back by: [id number] 11 SEE RESULT BELOW Name: WENDY ROJAS : [address]: Vanita Carrera MD Acct: [id number] Unit: [id number] AGE: 86 Location: LAB Re08/12/17 SEX: F Status: REG REF SPEC: [id number] JACOB: 08/12/[address]: Tc Carrera MD REQ: [id number] RECD: 08/12/17 STATUS: COMP _ SOURCE: URINE SPDESC: ORDERED: Urine Culture Procedure Result Reported Site Urine Culture Final 08/14/17904 ML No growth of clinically significant organisms * ML - Main Lab . END OF REPORT DEPARTMENT OF PATHOLOGY, [address] [place] [address] Fili Gambino M.D. Director [facility] # [id number] 12 Because ethnic data is not always readily [...] 15-29 5 Kidney failure <15 (or dialysis) 13 *Ascorbic acid is present which may interfere with detection of blood. 14 SEE RESULT BELOW Name: WENDY ROJAS : [address]: Vanita Carrera MD Acct: [id number] Unit: [id number] AGE: 86 Location: [facility] Re07/21/17 SEX: F Status: REG REF SPEC: [id number] JACOB: 07/21/17-[address] [facility] [address]: Tc Carrera MD REQ: [id number] RECD: 07/21/17 STATUS: RES _ SOURCE: URINE SPDESC: ORDERED: Urine Culture Procedure Result Reported Site Urine Culture Preliminary 07/22/17- 1116 ML Organism 1 ESCHERICHIA COLI [place] Count >100,000 (Many) CFU/ML * ML - Main Lab . END OF REPORT DEPARTMENT OF PATHOLOGY, [address] [place] [address] Fili Gambino M.D. Director [facility] # [id number] 15 Normal Range 180 to 914 Indeterminate Range 145 to 180 Deficient Range <145 16 Copy Result to: PEDRO LUIS FAULKNER ([id number]) 17 Copy Result to: PEDRO LUIS FAULKNER ([id number]) 18 RESULT: No apparent monoclonal protein on serum electrophoresis. Test Performed by: [address] [id number] 19 SEE RESULT BELOW Name: WENDY ROJAS : [address]: Luis Alberto Merchant MD Acct: [id number] Unit: [id number] AGE: 86 Location: LAB Re04/26/17 SEX: F Status: REG REF SPEC: [id number] JACOB: 04/26/17-[address]: Luis Alberto Merchant MD REQ: [id number] RECD: 04/26/17 STATUS: TAPAN ABDI DR: Tc Carrera MD _ SOURCE: URINE SPDESC: ORDERED: Urine Culture Procedure Result Reported Site Urine Culture Final 04/27/17- 1232 ML No Growth (<1,000 CFU/mL) * ML - Main Lab . END OF REPORT DEPARTMENT OF PATHOLOGY, [address] [place] [address] Fili Gambino M.D. Director [facility] # [id number] 20 Because ethnic data is not always [...] 5 Kidney failure <15 (or dialysis) 21 [place]itor: [id number] 22 Because ethnic data is not always [...] 5 Kidney failure <15 (or dialysis) 23 SEE RESULT BELOW Name: WENDY ROJAS : [address]: Faustino Zhu MD Acct: [id number] Unit: [id number] AGE: 86 Location: ED Re04/04/17 SEX: F Status: DEP ER SPEC: [id number] JACOB: 04/04/[address] [facility] [address]: Faustino Zhu MD REQ: [id number] RECD: 04/04/17 STATUS: TAPAN ABDI DR: Tc Carrera MD _ SOURCE: URINE SPDESC: ORDERED: Urine Culture Procedure Result Reported Site Urine Culture Final 04/06/17- 1145 ML Organism 1 CORYNEBACTERIUM STRIATUM [place] Count 25-50,000 (Moderate) CFU/ML * ML - MAIN LAB ([facility]) . END OF REPORT * ML=Testing performed at Main Lab DEPARTMENT OF PATHOLOGY, [address] [place] [address] Fili Gambino M.D. Director [facility] # [id number] 24 SEE RESULT BELOW Name: KAMI ROJASOLINA : [address]: Kim Rutledge Acct: [id number] Unit: [id number] AGE: 86 Location: ED Re03/21/17 SEX: F Status: REG ER SPEC: [id number] JACOB: 03/21/17-[address]: Lorin ROBLERO REQ: [id number] RECD: 03/21/17 STATUS: TAPAN ABDI DR: [facility] Yudith Rendon MD _ SOURCE: NASAL SPDESC: ORDERED: Flu A B Request Procedure Result Reported Site Rapid Influenza A B Request Final 03/21/17- 1647 ML Specimen received for Influenza A/B Molecular testing * ML - MAIN LAB ([facility]) . END OF REPORT * ML=Testing performed at Main Lab DEPARTMENT OF PATHOLOGY, [address] [place] [address] Fili Gambino M.D. Director [facility] # [id number] 25 [place] Auditor: [id number] 26 >100 to <200 pg/mL: likely compensated congestive heart failure (CHF) 200 to 400 pg/mL: likely moderate CHF >400 pg/mL: likely moderate to severe CHF 27 SEE RESULT BELOW Name: WENDY ROJAS : 1930 Attend Dr: Sydnie Baldwin DO Acct: [id number] Unit: [id number] AGE: 86 Location: [place] [address] Re03/21/17 Dis: 03/22/17 SEX: F Status: DIS Frederic SPEC: [id number] JACOB: 03/21/[address] [facility] [address]: Haider Templeton MD REQ: [id number] RECD: 03/21/17 STATUS: TAPAN ABDI DR: Yudith Rendon MD _ SOURCE: BLOOD,VENO SPDESC: ORDERED: Blood Cult Procedure Result Reported Site Aerobic Culture Bottle Final 03/26/17- 1755 ML No Growth Day 5 Anaerobic Culture Bottle Final 03/26/17- 1755 ML No Growth Day 5 * ML - MAIN LAB ([facility]) . END OF REPORT * ML=Testing performed at Main Lab DEPARTMENT OF PATHOLOGY, [address] [place] [address] Fili Gambino M.D. Director [facility] # [id number] 28 Acute inflammation: >10.00 29 Result TnIDx:0.07 Called to [id number] at: 18:21:18 by:[id number] Read back by: [id number] 30 Because ethnic data is not always readily [...] 15-29 5 Kidney failure <15 (or dialysis) 31 [facility] Severe Sepsis and Septic Shock Management Bundle Measure requires all lactic acids initially measuring >2.0 mmol/L be repeated. 32 Because ethnic data is not always readily [...] 15-29 5 Kidney failure <15 (or dialysis) 33 [facility] Severe Sepsis and Septic Shock Management Bundle Measure requires all lactic acids initially measuring >2.0 mmol/L be repeated. 34 Because ethnic data is not always readily [...] 15-29 5 Kidney failure <15 (or dialysis) 35 Result TnIDx:0.05 Called to [id number] at: 22:57:43 by:[id number] Read back by: [id number] 36 Because ethnic data is not always readily [...] 15-29 5 Kidney failure <15 (or dialysis) 37 Therapeutic target for the treatment of diabetes Mellitus patients is <7% HBA1C, and in selective patients <6.0%.Please refer to [employer] Diabetic care guidelines for further information. 38 Normal Range 180 to 914 Indeterminate Range 145 to 180 Deficient Range <145 39 Desirable <150 Borderline high 150-199 High 200-499 Very High >500 40 Desirable <200 Borderline high 200-239 High >239 41 Low <40 Desirable: 40-60 High: >60 42 Desirable: <100 mg/dL Near Optimal: 100-129 mg/dL Borderline High: 130-159 mg/dL High: 160-189 mg/dL Very High: >189 mg/dL 43 Because ethnic data is not always readily [...] 15-29 5 Kidney failure <15 (or dialysis) 44 Desirable <150 Borderline high 150-199 High 200-499 Very High >500 45 Desirable <200 Borderline high 200-239 High >239 46 Low <40 Desirable: 40-60 High: >60 47 Desirable: <100 mg/dL Near Optimal: 100-129 mg/dL Borderline High: 130-159 mg/dL High: 160-189 mg/dL Very High: >189 mg/dL 48 Because ethnic data is not always readily [...] 15-29 5 Kidney failure <15 (or dialysis) 49 Therapeutic target for the treatment of diabetes Mellitus patients is <7% HBA1C, and in selective patients <6.0%.Please refer to [employer] Diabetic care guidelines for further information. 50 Normal Range 180 to 914 Indeterminate Range 145 to 180 Deficient Range <145 51 FASTING 10 HOUR 52 FASTING 10 HOUR Procedures Date CPT Code Description Status 05/10/2017 68598 Biopsy Skin Lesion Single Completed 03/22/2017 47592 EKG, Interpretation Only Completed 09/07/2016 52940 ECHO Transthorasic Realtime 2D W Doppler & Color Flow Completed Hosp 08/31/2016 76274 EEG Recording Awake & Asleep Completed 03/11/2016 Diabetic Retinal Eye Exam Completed 03/09/2016 Diabetic Foot Exam Completed Encounters Type Date Location Provider CPT E/M Dx Office Visit 10/04/2017 10:30a [facility] Internal Medicine Amina Martínez, [address] D50[address] - [address] RPA-C N18.9 M51.16 D50.9 Office Visit 09/13/2017 2:40p [facility] Internal Medicine Tc Carrera, [address] K71.9 - [place] Brayan Anaya,FACP D50.8 E11.8 M51.16 [facility]2017 [facility] [address] B17.9 Hospitalists MD Kira R10.9 R74.8 N39.0 E10.9 I10 N18.9 Office Visit 09/08/2017 12:27p [place] Isaac Wills,michael [place], [place].P. [address] N18.9 Hospitalists D53.9 R10.12 R79.89 E11.22 E87.1 Office Visit 08/21/2017 4:00p [facility] Internal Medicine Tc Carrera, [address] E11.8 - [place] Brayan Anaya,FACP F03.90 D50.8 Office Visit 08/01/2017 1:30p [facility] [address] F03.90 Z91.81 I67.82 Office Visit 07/12/2017 4:30p [facility] [place] [address] T88.7xxD Office Visit 06/13/2017 9:40a [facility] [place] [address] T88.7xxA Z79.899 Office Visit 05/17/2017 2:20p [facility] Internal Medicine Tc Carrera, [address] E11.8 - [place] Brayan Anaya,FACP L27.9 Office Visit 05/15/2017 1:30p [facility] [address] F03.90 Z91.81 Office Visit 05/10/2017 3:00p [facility] [place] [address] L21.8 T88.7xxA Office Visit 05/01/2017 11:40a [facility] Internal Tc Carrera, [address]862 T88.7xxD Medicine - [place] Brayan Anaya,FACP I10 G47.51 Office Visit 04/26/2017 2:00p [facility] [place] [address] T88.7xxA Office Visit 04/05/2017 8:20a [facility] Internal Medicine Tc Carrera, [address] R00.1 - [place] Brayan Anaya,FACP I95.89 L27.9 Office Visit 03/22/2017 2:38p [facility], Sydnie Baldwin, 10[address] J11.1 Hospitalists D.O. E11.8 I10 F03.90 Office Visit 03/21/2017 2:38p [facility], David Hagan, 85874 J11.1 Hospitalists N.P. E11.8 F03.90 I10 Office Visit 03/17/2017 3:40p [facility] Internal Medicine - [place] [address] J45.31 [place] Brayan Carrera M.D.,FACP Office Visit 02/24/2017 10:00a [facility] [address] F03.90 R26.89 R47.1 R29.810 Office Visit 02/15/2017 1:40p [facility] Internal Tc Carrera, 19611 E11.22 Medicine - [place] Brayan Anaya,FACP N18.3 R60.1 Z23 Office Visit 11/09/2016 11:50a [facility] Internal Tc Carrera, 48090 E11.22 Medicine - [place] Brayan Anaya,FACP M62.81 Z23 Office Visit 09/12/2016 9:10a [facility] Internal Medicine Tc Carrera, 877[address] G45.9 - [place] Brayan Anaya,FACP I10 Office Visit 09/09/2016 11:00a [facility] [address] G45.9 Of [facility] F03.90 R47.1 R29.810 Office Visit 09/01/2016 4:00p [facility] [place] [address] B02.29 Office Visit 08/26/2016 2:40p [facility] Internal Medicine Tc Carrera, [address]609 G45.9 - [place] Brayan Anaya,FACP I20.8 G40.89 L30.9 Office Visit 08/10/2016 1:00p [facility] Internal Tc Carrera, 13264 Z00.01 Medicine - [place] Brayan Anaya,FACP E11.22 N18.3 R60.1 R31.0 B02.9 N95.0 Office Visit 03/30/2016 2:00p [facility] Internal Tc Carrera, 54762 E11.22 Medicine - [place] Brayan Anaya,FACP D51.9 Office Visit 03/04/2016 3:00p [facility] Internal Tc Carrera, 31618 E11.22 Medicine - [place] Brayan Anaya,FACP M25.511 D51.9 Plan of Care Future Appointment(s):12/07/2017 1:40 pm - Tc Carrera M.D.,FACP at [facility] Internal Medicine - [address]/ 3:00 pm - Tc Carrera M.D.,FACP at [facility] Internal Medicine - [place] 12/07/2017 3:00 pm - Chintan Cha M.D. at [place] [facility]
--- NOTE | 2017-11-10 14:30 | RAD ---
HISTORY: leg swelling COMPARISONS: September 08, 2017 VIEWS: 2: Frontal and lateral views of the chest. FINDINGS: CARDIOMEDIASTINAL SILHOUETTE: Annular calcifications are noted. JENNIFER: The jennifer are normal. PLEURA: The costophrenic angles are sharp. No pleural abnormalities are noted. LUNG PARENCHYMA: There is hyperinflation with flattening of the diaphragm and expansion of the AP diameter of the chest. ABDOMEN: The upper abdomen is clear. There is no subphrenic gas. BONES AND SOFT TISSUES: There is a levoscoliotic curvature of the spine. OTHER: None. IMPRESSION: HYPERINFLATION. NO ACTIVE CARDIOPULMONARY DISEASE.
--- NOTE | 2017-11-10 14:30 | RAD ---
INDICATION: Constipation. COMPARISON: Comparison is made with a prior CT of the abdomen and pelvis from September 08, 2017. TECHNIQUE: Frontal supine films of the abdomen were obtained. FINDINGS: The small bowel and colon appear nondistended. There is a moderate amount of stool present in the rectum. Dense calcification is noted within the abdominal aorta. IMPRESSION: MODERATE AMOUNT OF STOOL PRESENT WITHIN THE RECTUM.
[2017-11-10 14:37] LABS: ABS Basophils 0.1 10^3/ul (0-0.2); ABS Eosinophils 0 10^3/ul (0-0.6); ABS Lymphocytes 1.1 10^3/ul (1.0-4.8); ABS Monocytes 0.9 10^3/ul (0-0.8); ABS Nucleated RBC 0 10^3/ul; Eosinophil % 0.2 % (0-6); Hematocrit 29 % (35-47); Hemoglobin 9.7 g/dl (12.0-16.0); Lymphocyte % 8.1 % (25-47); Mean Corpuscular HGB Conc 33 g/dl (31-36); Mean Corpuscular Hemoglobin 30 pg (27-31); Mean Corpuscular Volume 90 fL (80-97); Mean Platelet Volume 7.2 um3 (7.4-10.4); Nucleated Red Blood Cells % 0; Platelet Count 327 10^3/ul (150-450); Red Blood Count 3.24 10^6/ul (4.00-5.40); Red Cell Distribution Width 13 % (10.5-15)
[2017-11-10 15:41] LABS: EGFR Non-African American 38.6 (>60)
[2017-11-10] MEDS ORDERED: Lidocaine PATCH 5%* 1 PATCH ONE (16:17)
[2017-11-10] MEDS ORDERED: Lidocaine PATCH 5%* 1 PATCH TRANSDERM ONE ×2 (16:20)
[2017-11-10 17:44] VITALS: BP 127/82
--- NOTE | 2017-11-10 18:06 | ED ---
Lower Extremity - HPI Summary HPI Summary: Patient is a 87 y/o F w/ c/o BLE edema, pain and constipation. Patient has dementia and Alzheimer's, patient's daughter is present and contributes HPI. BLE edema has worsened over the past 2.5 weeks, constipation onset a 2-3 days ago. Abdominal pain is denied by patient. She states patient is incapable of standing up and has difficulty lying flat. Daughter reports patient has been having black, tarry stools. Patient was seen at PCP and told to come to ED. On triage, pain is rated 6/10, nothing is noted to aggravate/alleviate Sx, and it is noted that patient is on fiber tablets and colace at baseline. Patient is on furosemide, 20 mg. PMHx of CHF, HTN, anemia, liver enzyme elevation, diabetes is noted. Home medications and allergies are reviewed. - History of Current Complaint Chief Complaint: EDGeneral Stated Complaint: LEG SWELLING/CONSTIPATION Time Seen by Provider: 11/10/17 13:50 Hx Obtained From: Patient - partial contribution, Family/Pastrycook Onset of Pain: Days - 2-3 days constipation and black tarry stools, Prior to Arrival - BLE edema exacerbation 2.5 weeks ago Onset/Duration: Weeks - BLE edema and pain exacerbation 2.5 weeks ago onset, 2- 3 days constipation Severity Currently: Moderate - 6/10 on triage Pain Intensity: 6 Pain Scale Used: 0-10 Numeric - 6/10 Timing: Constant, Lasting Days - 2-3 days constipation and black tarry stools, Lasting Weeks - 2.5 weeks exacerbation of BLE edema and pain Associated Signs And Symptoms: Positive: Other - BLE edema, pain and constipation; black, tarry stools.. Negative: Abdominal Pain Aggravating Factor(s): Other - nothing Alleviating Factor(s): Other - nothing - Allergies/Home Medications Allergies/Adverse Reactions: Allergies Allergy/AdvReac Type Severity Reaction Status Date / Time oseltamivir [From Tamiflu] Allergy Severe rash,hives Verified 09/09/17 00:49 Home Medications: Home Medications traMADol TAB* [Ultram*] 50 mg PO BEDTIME PRN 11/10/17 [History Confirmed ] PMH/Surg Hx/FS Hx/Imm Hx Endocrine/Hematology History: Reports: Hx Diabetes, Hx Anemia Cardiovascular History: Reports: Hx Hypertension, Other Cardiovascular Problems/ Disorders - DIABETIC Denies: Hx Pacemaker/ICD Respiratory History: Reports: Hx Asthma GI History: Reports: Hx Diverticulosis History: Reports: Hx Chronic Renal Failure, Hx Renal Disease - Stage III Musculoskeletal History: Reports: Hx Back Problems Comment Only: Other Musculoskeletal History - Rt leg pain, neuropathy Sensory History: Reports: Hx Contacts or Glasses, 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 RESECTION OF INTESTINE - DUE TO INFECTION - Immunization History Immunizations Up to Date: Yes Infectious Disease History: No Infectious Disease History: Denies: Hx Clostridium Difficile, Hx Hepatitis, Hx Human Immunodeficiency Virus (HIV), Hx of Known/Suspected MRSA, Hx Shingles, Hx Tuberculosis, Hx Known/ Suspected VRE, Traveled Outside the [place] in Last 30 Days - Family History Known Family History: Positive: Cardiac Disease, Respiratory Disease - asthma, Other - CA - Social History Alcohol Use: None Substance Use Type: Reports: None Hx Tobacco Use: No Smoking Status (MU): Former Smoker Amount Used/How Often: QUIT 50 YEARS AGO Review of Systems Positive: Other - constipation; black, tarry stools. Negative: Abdominal Pain Positive: Edema - BLE , Other - BLE pain All Other Systems Reviewed And Are Negative: Yes Physical Exam - Summary Physical Exam Summary: Appearance: Well appearing, howls in pain with certain movements Skin: warm, dry, reflects adequate perfusion; small bruise on left shoulder Head/face: normal Eyes: EOMI, DANYA ENT: normal Neck: supple, non-tender Respiratory: CTA, breath sounds present; no crackles noted Cardiovascular: RRR, pulses symmetrical Abdomen: non-tender, soft Bowel Sounds: present Musculoskeletal: strength/ROM intact; 3+ BLE pitting edema Neuro: normal, sensory motor intact, A&Ox3 Triage Information Reviewed: Yes Vital Signs On Initial Exam: Initial Vitals Temp Pulse Resp BP Pulse Ox 97.8 F 97 18 132/41 100 11/10/17 13:04 11/10/17 13:04 11/10/17 13:04 11/10/17 13:04 11/10/17 13:04 Vital Signs Reviewed: Yes Diagnostics - Vital Signs Vital Signs Temp Pulse Resp BP Pulse Ox 11/10/17 17:42 97.9 F 90 18 127/82 100 11/10/17 13:04 97.8 F 97 18 132/41 100 - Laboratory Lab Results: Lab Results 11/10/17 11/10/17 11/10/17 Range/Units 14:27 14:27 14:27 WBC 14.0 H (3.5-10.8) 10^3/ul RBC 3.24 L (4.00-5.40) 10^6/ul Hgb 9.7 L (12.0-16.0) g/dl Hct 29 L (35-47) % MCV 90 (80-97) fL MCH 30 (27-31) pg MCHC 33 (31-36) g/dl RDW 13 (10.5-15) % Plt Count 327 (150-450) 10^3/ul MPV 7.2 L (7.4-10.4) um3 Neut % (Auto) 85.2 H (38-83) % Lymph % (Auto) 8.1 L (25-47) % [place] % (Auto) 6.1 (0-7) % Eos % (Auto) 0.2 (0-6) % Baso % (Auto) 0.4 (0-2) % Absolute Neuts (auto) 12.0 H (1.5-7.7) 10^3/ul Absolute Lymphs (auto) 1.1 (1.0-4.8) 10^3/ul Absolute Monos (auto) 0.9 H (0-0.8) 10^3/ul Absolute Eos (auto) 0 (0-0.6) 10^3/ul Absolute Basos (auto) 0.1 (0-0.2) 10^3/ul Absolute Nucleated RBC 0 10^3/ul Nucleated RBC % 0 Sodium 129 L (135-145) mmol/L Potassium 4.8 (3.5-5.0) mmol/L Chloride 97 L (101-111) mmol/L Carbon Dioxide 25 (22-32) mmol/L Anion Gap 7 (2-11) mmol/L BUN 32 H (6-24) mg/dL Creatinine 1.30 H (0.51-0.95) mg/dL Est GFR ( Amer) 46.7 (>60) Est GFR (Non-Af Amer) 38.6 (>60) BUN/Creatinine Ratio 24.6 H (8-20) Glucose 281 H (70-100) mg/dL Calcium 9.2 (8.6-10.3) mg/dL Total Bilirubin 0.60 (0.2-1.0) mg/dL AST 14 (13-39) U/L ALT 7 (7-52) U/L Alkaline Phosphatase 78 (34-104) U/L Troponin I 0.14 H* (<0.04) ng/mL B-Natriuretic Peptide 549 H ( - 100) pg/mL Total Protein 7.5 (6.4-8.9) g/dL Albumin 3.5 (3.2-5.2) g/dL Globulin 4.0 (2-4) g/dL Albumin/Globulin Ratio 0.9 L (1-3) Result Diagrams: 11/10/17 14:27 11/10/17 14:27 Lab Statement: Any lab studies that have been ordered have been reviewed, and results considered in the medical decision making process. - Radiology CXR Xray Interpretation: No Acute Changes Radiology Interpretation Completed By: Radiologist - hyperinflation; no active cardiopulmonary disease; this report has been reviewed by ED physician. abdominal xray Xray Interpretation: Positive (See Comments) Radiology Interpretation Completed By: Radiologist - moderate amount of stool present within the rectum - EKG 1421 Cardiac Rate: NL - rate of 95 bpm EKG Rhythm: Sinus Rhythm ST Segment: Non-Specific EKG Interpretation: 1st degree AV block, RBBB, left LPFB Re-Evaluation - Re-Evaluation First Eval Re-Evaluation Time: 16:13 Comment: Digital disimpaction and soap suds enema was performed. Second Eval Re-Evaluation Time: 16:56 Change: Improved Comment: Patient is doing better after disimpaction; she will be discharged to home. Patient's daughter is agreeable. Lower Extremity Course/Dx - Course Course Of Treatment: Patient with a history of CHF with chronic edema in her legs that has been exacerbated by low back pain. She has not been moving out of a chair. She has no difficulty in breathing. Her back pain was improved with lidocaine patch. She has not been able to use the restroom and has impacted stool in the rectum also confirmed by x-ray. Manual disimpaction was performed here and she received an enema with resulting large bowel movement and improvement in her discomfort. She was able to be discharged in good condition with much less discomfort. - Diagnoses Differential Diagnosis/HQI/PQRI: Positive: Other - CHF, COPD, renal failure, fecal impaction, small bowel obstruction Provider Diagnoses: Chronic CHF, Constipation, acute, Fecal impaction, Chronic lower back pain Discharge - Sign-Out/Discharge Documenting (check all that apply): Patient Departure - discharge - Discharge Plan Condition: Improved Disposition: HOME Prescriptions: Bisacodyl SUPP* [Dulcolax Supp*] 10 mg NE DAILY PRN #10 supp PRN Reason: Constipation Polyethylene Glycol 3350 BTL* [Miralax] 17 gm PO TID PRN #1 btl PRN Reason: Constipation Patient Education Materials: Heart Failure (ED), Constipation (ED), Low-Sodium Diet (ED) Referrals: Tc Carrera MD [Primary Care Provider] - Additional Instructions: Leveler Helper apple juice. Continue home medications. Call to follow-up with her doctor on Monday. Encouraged walking. Compression stockings may be picked up at the pharmacy. Where these every day. Return if worse, new symptoms or other concerns as discussed. - Billing Disposition and Condition Condition: IMPROVED Disposition: Home - Attestation Statements Document Initiated by Ivanna: Yes Documenting Scribe: Vel Hollins Provider For Whom Ivanna is Documenting (Include Credential): Roni Devine MD Scribe Attestation: IVel, scribed for Roni Devine MD on 11/10/17 at 2058. Scribe Documentation Reviewed: Yes Provider Attestation: The documentation as recorded by the Vel sanchez accurately reflects the service I personally performed and the decisions made by , Roni Devine MD
[2017-11-10] MEDS ORDERED: Lidocaine Patch REMOVE* 1 NOTE MISC SCH (21:00)
== END 2017-11-10 17:42 | disposition home or self-care (01) ==
LOC: ED 12:25
DX: I11.0 Hypertensive heart disease with heart failure (principal); I50.9 Heart failure, unspecified; K59.00 Constipation, unspecified; M54.5 Low back pain; G89.29 Other chronic pain; I44.0 Atrioventricular block, first degree; I45.2 Bifascicular block; D64.9 Anemia, unspecified; R74.8 Abnormal levels of other serum enzymes; E11.9 Type 2 diabetes mellitus without complications; Z88.8 Allergy status to other drugs, medicaments and biological substances; Z87.898 Personal history of other specified conditions; Z87.891 Personal history of nicotine dependence
CPT/HCPCS: 36415; 71046; 74018; 80053; 83880; 84484; 85025; 93005; 99283; A9270-GY